=== PATIENT | female | born 1965 | race Caucasian/White ===

== ENCOUNTER → 2017-11-21 08:02 | Outpatient (CLI) | payer OTHER, SELFPAY ==
--- NOTE | 2017-11-21 08:03 | US_ITS ---
STUDY: ULTRASOUND OF THE FEMALE PELVIS - COMPLETE REASON FOR EXAM: Female, 51 years old. Right-sided pelvic pain. Now resolved. LMP: Status post hysterectomy. TECHNIQUE: Transabdominal. TECHNICAL QUALITY: Adequate. COMPARISON: None. FINDINGS: Postsurgical absence of the uterus The right ovary is visualized. The right ovary measures 2.1 x 1.8 x 1.5 cm. There is no right ovarian cyst or ovarian mass. There is no visualized right adnexal mass or complex lesion. There is normal arterial and normal venous vascularity. The left ovary is visualized. The left ovary measures 1.7 x 1.9 x 1.0 cm. Small follicular cyst. There is no visualized left adnexal mass or complex lesion. There is normal arterial and normal venous vascularity. There is no fluid in the cul-de-sac. The pre void volume of the bladder was 300 ml. US/Pelvic (Non ) IMPRESSION: 1. Normal ultrasound of both ovaries. 2. Postsurgical absence of the uterus. 3. Negative for free fluid in the cul-de-sac. Electronically Signed: Maco Torres MD at 8:39 EDT , Service support ,
== END ==
PROVIDERS: Family Provider Internal Medicine; PCP Internal Medicine; Visit Provider Nurse Practitioner Women's Health
DX: R10.2 Pelvic and perineal pain (principal)
CPT/HCPCS: 76856; 93976

== ENCOUNTER → 2017-11-24 16:01 | Outpatient (CLI) | payer OTHER, SELFPAY ==
--- NOTE | 2017-11-24 16:02 | BI_ITS ---
MAMMOGRAPHY - BILATERAL SCREENING REASON FOR EXAM: Female, 51 years old. Routine annual screening examination. PERTINENT HISTORY: Aunt with breast cancer. TECHNIQUE: Digital bilateral breast natalio (3D mammographic acquisition) in the CC and MLO projections. 2-D mediolateral oblique (MLO) and craniocaudad (CC) views of both breasts were obtained. CAD: Full Field Digital Mammography with Computer Added Detection was performed. COMPARISON: Comparison is made with prior study dated April 29, 2016 and September 12, 2014. FINDINGS: Breast Composition: The breasts are heterogeneously dense, which may obscure small masses. There are no dominant masses or suspicious calcifications. No other significant abnormalities are identified. There has been no significant change since the prior study. BI/SCREENING MAMM (CAD), BILAT IMPRESSION: Stable bilateral screening mammogram. Yearly follow-up mammogram recommended. (A) ASSESSMENT CATEGORY: BIRADS Category 1: Negative. A letter regarding these results will be sent to the patient by the facility within 30 days. Approximately 10% of breast cancers are not detected by mammography. A normal mammogram should not delay biopsy of a clinically suspicious abnormality. [id number] Electronically Signed: Filipe Kelly MD at 8:50 EDT Tel [phone], Service support ,
== END ==
PROVIDERS: Family Provider Internal Medicine; PCP Internal Medicine; Visit Provider Nurse Practitioner Women's Health
DX: Z12.31 Encounter for screening mammogram for malignant neoplasm of breast (principal)
CPT/HCPCS: 77063; 77067

== ENCOUNTER 2018-01-25 07:12 | Day surgery (SDC) | payer OTHER, SELFPAY ==
[2018-01-25 07:33] VITALS: BP 110/47; PULSE 55; RESP 16; TEMP 36.8; O2SAT 99; BMI 21.7
[2018-01-25 08:56] VITALS: BP 106/53; BP 110/47; PULSE 58; RESP 16; TEMP 36.8; O2SAT 10
[2018-01-25 09:00] VITALS: BP 100/59; BP 110/47; PULSE 47; RESP 14; O2SAT 100
--- NOTE | 2018-01-25 09:04 | OP.PCM_ITS ---
Report of Operation Date of Procedure: 01/25/18 Pre-Operative Diagnosis: Screening for colon cancer Post-Operative Diagnosis: Internal hemorrhoids?grade 1 Surgery/Procedure Performed:: Colonoscopy Type of Anesthesia:: MAC Anesthesiologist: Ying Fernandez Specimen's removed: None Estimated Blood Loss (mL): None Description of Procedure: Procedure: Colonoscopy After reviewing the risks benefits, the patient was deemed in satisfactory condition to undergo procedure. After obtaining informed consent, the scope was passed under direct visualization. Throughout the procedure, the patient's blood pressure pulse and position saturations were monitored continuously anesthesia. The colonoscope was introduced through the anus and advanced to the cecum, identified by the appendiceal orifice, IC valve and transillumination. The colonoscopy was performed without difficulty. The patient tolerated procedure well. Quality of bowel prep was good. Findings: The perianal and digital rectal exam were normal. The colon (entire examined portion) appeared normal. Retroflexed view of the distal rectum and anal verge was normal and showed no anal or rectal abnormalities Impression: 1. The entire colon is normal. 2. The distal rectal and anal verge were normal on retroflexed view. Recommendations: Repeat colonoscopy in 10 years for screening purposes - Complications None
[2018-01-25 09:05] VITALS: BP 109/64; BP 110/47; PULSE 54; RESP 14; O2SAT 100
[2018-01-25 09:13] VITALS: BP 110/47; BP 112/68; PULSE 54; RESP 14; TEMP 36.6; O2SAT 100
[2018-01-25 09:30] VITALS: BP 110/47
== END 2018-01-25 09:35 | disposition home or self-care (01) ==
LOC: EN 07:13 → AC 07:20
PROVIDERS: Family Provider Internal Medicine; PCP Internal Medicine; Visit Provider Surgery
PROC: 0DJD8ZZ Inspection of Lower Intestinal Tract, Via Natural or Artificial Opening Endoscopic (ICD-10-PCS; CPT 45378; principal; 2018-01-25 08:25)
DX: Z12.11 Encounter for screening for malignant neoplasm of colon (principal); K64.8 Other hemorrhoids; F41.9 Anxiety disorder, unspecified
CPT/HCPCS: 45378; J7120

== ENCOUNTER → 2018-06-07 14:18 | Outpatient (CLI) | payer OTHER, SELFPAY ==
--- NOTE | 2018-06-07 14:20 | RAD_ITS ---
STUDY: X-RAY CHEST REASON FOR EXAM: Female, 52 years old. Chest pain for 2 days, cough TECHNIQUE: PA and lateral views of the chest. COMPARISON: 05/25/2017 FINDINGS: The lungs are clear and expanded. There is no demonstrated pleural abnormality. Normal size heart. Normal mediastinum and geno. Normal visualized pulmonary arteries. Normal visualized aortic arch and descending thoracic aorta. Normal visualized thoracic spine. Normal visualized ribs, clavicles, and shoulders. There is no demonstrated abnormality of the visualized soft tissue structures of the upper abdomen. RAD/Chest PA and Lateral IMPRESSION: Normal x-ray examination of the chest. Electronically Signed: Yevgeniy Castaneda MD at 8:48 EST , Service support ,
== END ==
PROVIDERS: Family Provider Internal Medicine; PCP Internal Medicine; Referring Provider Internal Medicine; Visit Provider Internal Medicine
DX: R07.9 Chest pain, unspecified (principal)
CPT/HCPCS: 71046

== ENCOUNTER → 2018-11-27 07:40 | Outpatient (CLI) | payer OTHER, SELFPAY ==
[2018-08-23 13:15] VITALS: BMI 23.2
[2018-11-01 10:42] VITALS: BMI 23.2
--- NOTE | 2018-11-27 07:41 | BI_ITS ---
MAMMOGRAPHY - BILATERAL SCREENING REASON FOR EXAM: Female, 52 years old. Routine annual screening examination. PERTINENT HISTORY: Aunt with breast cancer. TECHNIQUE: Digital bilateral breast monique (3D mammographic acquisition) in the CC and MLO projections. 2-D mediolateral oblique (MLO) and craniocaudad (CC) views of both breasts were obtained. CAD: Full Field Digital Mammography with Computer Added Detection was performed. COMPARISON: Comparison is made with prior study dated November 24, 2017 and April 29, 2016. FINDINGS: Breast Composition: The breasts are heterogeneously dense, which may obscure small masses. There are no dominant masses or suspicious calcifications. Stable benign-appearing bilateral axillary lymph nodes. No other significant abnormalities are identified. There has been no significant change since the prior study. BI/SCREEN MAMM (CAD) W/MONIQUE BILAT IMPRESSION: Stable bilateral screening mammogram. Yearly follow-up mammogram recommended. (A) ASSESSMENT CATEGORY: BIRADS Category 2: Benign. A letter regarding these results will be sent to the patient by the facility within 30 days. Approximately 10% of breast cancers are not detected by mammography. A normal mammogram should not delay biopsy of a clinically suspicious abnormality. [id number] Electronically Signed: Filipe Kelly, at 8:39 EDT , Service support ,
== END ==
PROVIDERS: Family Provider Internal Medicine; PCP Internal Medicine; Referring Provider Nurse Practitioner Women's Health; Visit Provider Nurse Practitioner Women's Health
DX: Z12.31 Encounter for screening mammogram for malignant neoplasm of breast (principal)
CPT/HCPCS: 77063; 77067

== ENCOUNTER → 2019-11-30 07:39 | Outpatient (CLI) | payer OTHER, SELFPAY ==
[2019-08-27 08:10] VITALS: BMI 23.2
--- NOTE | 2019-11-30 07:40 | BI_ITS ---
MAMMOGRAPHY - BILATERAL SCREENING REASON FOR EXAM: Female, 53 years old. Routine annual screening examination. PERTINENT HISTORY: Aunt with breast cancer. TECHNIQUE: Digital bilateral breast monique (3D mammographic acquisition) in the CC and MLO projections. 2-D mediolateral oblique (MLO) and craniocaudad (CC) views of both breasts were obtained. CAD: Full Field Digital Mammography with Computer Added Detection was performed. COMPARISON: Comparison is made with prior study dated November 27, 2018 and November 25, 2007 FINDINGS: Breast Composition: The breasts are heterogeneously dense, which may obscure small masses. There are no dominant masses or suspicious calcifications. Stable small benign-appearing bilateral axillary lymph nodes. No other significant abnormalities are identified. There has been no significant change since the prior study. BI/SCREEN MAMM (CAD) W/MONIQUE BILAT IMPRESSION: Stable bilateral screening mammogram. Yearly follow-up mammogram recommended. (A) ASSESSMENT CATEGORY: BIRADS Category 2: Benign. A letter regarding these results will be sent to the patient by the facility within 30 days. Approximately 10% of breast cancers are not detected by mammography. A normal mammogram should not delay biopsy of a clinically suspicious abnormality. [id number] Electronically Signed: Filipe Kelly, at 9:52 EDT , Service support ,
== END ==
PROVIDERS: PCP Internal Medicine; Referring Provider Nurse Practitioner Women's Health; Visit Provider Nurse Practitioner Women's Health
DX: Z12.31 Encounter for screening mammogram for malignant neoplasm of breast (principal); Z80.3 Family history of malignant neoplasm of breast
CPT/HCPCS: 77063; 77067

== ENCOUNTER → 2020-11-20 | Outpatient (CLI) | payer OTHER, SELFPAY ==
[2020-11-20 08:06] VITALS: BMI 22.8
== END | disposition home or self-care (01) ==
LOC: LABSPEC 13:46
PROVIDERS: PCP Internal Medicine; Referring Provider Nurse Practitioner Women's Health; Visit Provider Nurse Practitioner Women's Health
DX: N95.2 Postmenopausal atrophic vaginitis (principal)
CPT/HCPCS: 87070; 87077; 87205

== ENCOUNTER → 2020-12-03 06:55 | Outpatient (CLI) | payer OTHER, SELFPAY ==
[2020-11-20 08:06] VITALS: BMI 22.8
--- NOTE | 2020-12-03 06:57 | BI_ITS ---
MAMMOGRAPHY - BILATERAL SCREENING 3-D TOMOSYNTHESIS REASON FOR EXAM: Female, 54 years old. Routine screening PERTINENT HISTORY: Aunt with breast cancer.. TECHNIQUE: 2-D mammograms and 3-D Tomosynthesis of the breast (s) were performed. CAD was performed. COMPARISON: 11/30/2019 FINDINGS: The breast composition is heterogeneously dense that can obscure small breast masses. Scattered benign calcifications are seen. No dense spiculated masses or suspicious microcalcifications are identified. No architectural distortion is identified. There is no skin thickening or retraction. There has been no significant change since the prior study. BI/SCRN MAMM (CAD)W/MONIQEU BILAT IMPRESSION: No mammographic signs of malignancy. Routine yearly mammograms recommended. ASSESSMENT CATEGORY: BIRADS Category 2: Benign. A letter regarding these results will be sent to the patient by the facility within 30 days. FOLLOW UP RECOMMENDATION: Yearly follow up mammogram recommended. (A) Approximately 10% of breast cancers are not detected by mammography. A normal mammogram should not delay biopsy of a clinically suspicious abnormality. Electronically Signed: Yared Phillips MD at 7:57 EDT , Service support ,
== END ==
PROVIDERS: PCP Internal Medicine; Referring Provider Nurse Practitioner Women's Health; Visit Provider Nurse Practitioner Women's Health
DX: Z12.31 Encounter for screening mammogram for malignant neoplasm of breast (principal); Z80.3 Family history of malignant neoplasm of breast
CPT/HCPCS: 77063; 77067

== ENCOUNTER → 2021-01-05 14:52 | Outpatient (CLI) | payer OTHER, SELFPAY ==
[2021-01-05 13:58] VITALS: BMI 22.8
== END ==
PROVIDERS: PCP Internal Medicine; Visit Provider Physician Assistant
DX: J06.9 Acute upper respiratory infection, unspecified (principal); R19.7 Diarrhea, unspecified; R11.10 Vomiting, unspecified
CPT/HCPCS: 87635; U0005; U0003

== ENCOUNTER → 2021-05-06 09:56 | Outpatient (CLI) | payer OTHER, SELFPAY | PROVIDERS: PCP Internal Medicine; Visit Provider Thoracic Surgery (Cardiothoracic Vascular Surgery) | DX: Z79.890 Hormone replacement therapy (principal) ==

== ENCOUNTER → 2021-05-07 08:08 | Outpatient (CLI) | payer OTHER, SELFPAY ==
[2021-05-07 09:31] LABS: Estradiol 34.6 pg/mL; Follicle Stimulating Hormone 83.2 mIU/mL
== END ==
PROVIDERS: PCP Internal Medicine; Referring Provider Thoracic Surgery (Cardiothoracic Vascular Surgery); Visit Provider Thoracic Surgery (Cardiothoracic Vascular Surgery)
DX: Z79.890 Hormone replacement therapy (principal)
CPT/HCPCS: 36415; 82670; 83001; 84403

== ENCOUNTER → 2021-11-12 | Outpatient (CLI) | payer OTHER, SELFPAY ==
--- NOTE | 2021-11-12 17:14 | RAD_ITS ---
STUDY: X-RAY CHEST REASON FOR EXAM: Female, 55 years old. cough TECHNIQUE: PA and lateral views of the chest. COMPARISON: 06/07/2018 FINDINGS: The lungs are clear and expanded. There is no demonstrated pleural abnormality. Normal size heart. Normal mediastinum and geno. Normal visualized pulmonary arteries. Normal visualized aortic arch and descending thoracic aorta. Normal visualized thoracic spine. Normal visualized ribs, clavicles, and shoulders. There is no demonstrated abnormality of the visualized soft tissue structures of the upper abdomen. RAD/Chest PA and Lateral IMPRESSION: Normal x-ray examination of the chest. Electronically Signed: Gee Saucedo MD at 17:29 EDT ,
== END | disposition home or self-care (01) ==
PROVIDERS: PCP Internal Medicine; Referring Provider Physician Assistant; Visit Provider Physician Assistant
DX: R05.9 Cough, unspecified (principal)
CPT/HCPCS: 71046

== ENCOUNTER → 2022-03-12 | Outpatient (CLI) | payer OTHER, SELFPAY ==
--- NOTE | 2022-03-12 07:10 | BI_ITS ---
MAMMOGRAPHY - BILATERAL SCREENING REASON FOR EXAM: Female, 56 years old. Routine annual screening examination. PERTINENT HISTORY: Aunt with breast cancer. TECHNIQUE: Digital bilateral breast monique (3D mammographic acquisition) in the CC and MLO projections. 2-D mediolateral oblique (MLO) and craniocaudad (CC) views of both breasts were obtained. CAD: Full Field Digital Mammography with Computer Added Detection was performed. COMPARISON: Comparison is made with prior study 12/03/2020 and 11/30/2019. FINDINGS: Breast Composition: The breasts are heterogeneously dense, which may obscure small masses. There are no dominant masses or suspicious calcifications. No other significant abnormalities are identified. There has been no significant change since the prior study. BI/SCRN MAMM (CAD)W/MONIQUE BILAT IMPRESSION: Stable bilateral screening mammogram. Yearly follow-up mammogram recommended. (A) ASSESSMENT CATEGORY: BIRADS Category 1: Negative. A letter regarding these results will be sent to the patient by the facility within 30 days. Approximately 10% of breast cancers are not detected by mammography. A normal mammogram should not delay biopsy of a clinically suspicious abnormality. [id number] Electronically Signed: Filipe Kelly MD at 8:45 EDT ,
== END | disposition home or self-care (01) ==
LOC: OPBI 07:08
PROVIDERS: PCP Internal Medicine; Visit Provider Nurse Practitioner Family
DX: Z12.31 Encounter for screening mammogram for malignant neoplasm of breast (principal); Z80.3 Family history of malignant neoplasm of breast
CPT/HCPCS: 77063; 77067

== ENCOUNTER → 2022-10-15 | Outpatient (CLI) | payer OTHER, SELFPAY ==
--- NOTE | 2022-10-15 07:26 | ECHOD_ITS ---
Reason For Study: Chest pain Procedure This was a 2D Doppler, Color Flow transthoracic echocardiogram. Exam performed in department. Left Ventricle Normal LV size. Left ventricular systolic function is normal. The estimated ejection fraction is 68 %. Normal diastology for age. No regional wall motion abnormalities noted. Right Ventricle Normal RV size. Normal systolic function. Atria Normal left atrium. Normal right atrium. Mitral Valve Normal mitral valve. Mild (1+) mitral valve insufficiency. Tricuspid Valve Normal tricuspid valve. Mild tricuspid valve insufficiency. Pulmonary artery systolic pressure is 20 mmHg. Aortic Valve Trisinus/trileaflet aortic valve. Trivial aortic valve insufficiency. Pulmonic Valve Normal pulmonic valve. Trivial pulmonic valve insufficiency. Great Vessels Normal aortic root. The pulmonary artery is normal size. Normal inferior vena cava. Pericardium/Pleural No pericardial effusion. MMode/2D Measurements & Calculations LVIDd: 4.3 cm IVSd: 0.79 cm Ao root diam: 2.9 cm LVIDs: 2.8 cm LVPWd: 0.83 cm RVDd: 2.7 cm FS: 35.3 % LAV(MOD-bp): 26.8 ml LVAd ap4: 23.4 cm2 LVAd ap2: 22.9 cm2 LAV(MOD-bp) Indexed: 17.0 ml/m2 LVLd ap4: 7.4 cm LVLd ap2: 7.5 cm LAV(MOD-sp2): 24.1 ml EDV(MOD-sp4): 61.0 ml EDV(MOD-sp2): 60.4 ml LAV(MOD-sp4): 27.1 ml EDV(sp4-el): 62.5 ml EDV(sp2-el): 59.3 ml LVAs ap4: 12.0 cm2 LVAs ap2: 12.1 cm2 LVLs ap4: 6.1 cm LVLs ap2: 6.5 cm ESV(MOD-sp4): 19.8 ml ESV(MOD-sp2): 19.7 ml ESV(sp4-el): 20.0 ml ESV(sp2-el): 19.3 ml EF(MOD-sp4): 67.5 % EF(MOD-sp2): 67.3 % EF(sp4-el): 67.9 % SV(MOD-sp4): 41.2 ml SV(MOD-sp2): 40.6 ml SV(sp4-el): 42.5 ml LA dimension(2D): 2.9 cm LA A4 area: 12.8 cm2 RA A4 area: 10.4 cm2 Time Measurements MV dec time: 0.17 sec Doppler Measurements & Calculations MV E max colton: 86.9 cm/sec Lat Peak E' Colton: 13.1 cm/sec Med Peak E' Colton: 13.2 cm/sec MV A max colton: 65.3 cm/sec E/E' lat: 6.6 E/E' med: 6.6 MV E/A: 1.3 MV dec slope: 505.1 cm/sec2 Ao V2 max: 138.2 cm/sec LV V1 max: 125.5 cm/sec Ao max P.6 mmHg LV V1 max P.3 mmHg Ao V2 mean: 95.4 cm/sec LV V1 mean P.3 mmHg Ao mean P.2 mmHg LV V1 mean: 84.4 cm/sec Ao V2 VTI: 33.1 cm LV V1 VTI: 28.9 cm AV (velocity ratio): 0.87 PA V2 max: 92.3 cm/sec TR max colton: 207.2 cm/sec TR max P.2 mmHg ECHO/Echo Complete Interpretation Summary Normal LV size. Left ventricular systolic function is normal. The estimated ejection fraction is 68 %. Normal diastology for age. Mild (1+) mitral valve insufficiency. Trivial aortic valve insufficiency. Mild tricuspid valve insufficiency. Ordering Physician: Genaro Dorman Referring Physician: Stefan Knight Performed By: Addis Adan RDCS
--- NOTE | 2022-10-15 07:51 | CT_ITS ---
STUDY: CARDIAC CALCIUM SCORING - CT CHEST REASON FOR EXAM: Female, 56 years old. CHEST PAIN RADIATION DOSAGE (If Supplied By Facility): CTDIvol = ( 12.19 ) mGy, DLP = ( 195.04 ) mGycm TECHNIQUE: Axial non-enhanced images were acquired through the heart for the sole purpose of measuring coronary artery calcium. Individualized dose optimization techniques were used for this CT. COMPARISON: None. FINDINGS: Visualized surrounding anatomy: Normal. Left Main Coronary Artery: 0 Left Anterior Descending Artery: 0 Left Circumflex Artery: 0 Right Coronary Artery: 0 Other: Mild aortic calcification Total Calcium Score: 0 CT/Limited Chest CT Cardiac Only IMPRESSION: A Calcium Score of 0 places the patient in the approximate percentile, based on the [facility] data calculator. Please go to: [email or web address] , for a description of the calculator. Electronically Signed: Burton Rose MD at 18:02 EDT ,
--- NOTE | 2022-10-15 10:32 | CA.SCORE ---
Calcium Scoring Date of Study:: 10/15/22 Coronary Calcium Scoring: High-resolution Computed Tomographic imaging of the chest was performed on [10/15/2022], with particular attention paid to the coronary arteries. Images from the examination were analyzed for the presence and extent of coronary artery calcification , using coronary calcium quantification software. The patient tolerated the procedure well and there were no complications. The results of the coronary calcification analysis are provided below. Findings Coronary Artery Left Main (LM): 0 Left Anterior Descending (LAD): 0 Left Circumflex (LCX): 0 Right Coronary Artery (RCA): 0 Total Agatston Score: 0 Percentile Rankin Calcium Scoring Interpretation: Different methods to categorize the overall amount of coronary plaque. Overall amount CAC SIS Visual of coronary plaque P1 Mild -100 <2 1-2 vessels with mild amount of plaque P2 Moderate 101-300 3-4 1-2 vessels with moderate amount, 3 vessels with mild amount of plaque P3 Severe 301-999 5-7 3 vessels with moderate amount, 1 vessel with severe amount of plaque P4 Extensive >1000 >8 2-3 vessels with severe amount of plaque Conclusion: No atherosclerotic plaquing noted.
--- NOTE | 2022-10-15 12:19 | STRESSREP ---
Stress Test Report Exercise stress test. 56-year-old lady with a history of chest pain Stress protocol: Resting EKG demonstrates sinus bradycardia with a rate of 58 bpm resting blood pressure is 118/72 mmHg. The patient exercised according to the regular [facility] protocol for a total duration of 9 minutes and 30 seconds attaining a maximum heart rate of 146 bpm which was 87% of maximum predicted heart rate; the maximum workload was 11.7 metabolic equivalents. At rest there were no ST or T wave changes noted to suggest ischemia and at peak exercise upsloping ST changes only were noted which did not meet the criteria for ischemia. No clinical angina was noted the test was terminated due to the target heart rate being achieved/fatigue. The peak blood pressure was 140/70 mmHg. Rate-pressure product was 18,700. Conclusion: Normal exercise stress test with no evidence of ischemia at a high workload. Excellent functional capacity.
== END | disposition home or self-care (01) ==
PROVIDERS: PCP Internal Medicine; Visit Provider Internal Medicine Cardiovascular Disease
DX: R07.9 Chest pain, unspecified (principal); I34.0 Nonrheumatic mitral (valve) insufficiency
CPT/HCPCS: 75571; 76380; 93017; 93306

== ENCOUNTER → 2022-12-15 | Outpatient (CLI) | payer OTHER, SELFPAY ==
--- NOTE | 2022-12-15 16:14 | MRI_ITS ---
EXAM: MR HEAD WITHOUT AND WITH INTRAVENOUS CONTRAST CLINICAL INDICATION: migraine headaches,dizziness TECHNIQUE: Multiplanar and multisequence MR images of the brain were obtained without and with intravenous contrast. Magnetic field strength 1.5 T. CONTRAST: 12 cc of Clariscan IV. COMPARISON: No relevant prior studies available. FINDINGS: BRAIN AND EXTRA-AXIAL SPACES: Unremarkable. No intra- or extra-axial hemorrhage. No evidence of acute infarct. No intracranial mass or mass effect. There is preservation of the joe/white matter interface. Posterior fossa structures are unremarkable. Ventricles are appropriate for age. No hydrocephalus. Basal cisterns are patent. SELLA: Unremarkable. Normal sella turcica, pituitary gland, infundibular stalk, optic chiasm and hypothalamus. AUDITORY SYSTEM: Unremarkable. The internal auditory canals are patent. BONES/JOINTS: Unremarkable. No discrete lytic or blastic abnormalities. SINUSES: Unremarkable as visualized. Clear. MASTOID AIR CELLS: Unremarkable as visualized. Clear. ORBITS: Unremarkable as visualized. Both globes, extraocular muscles, optic nerves and retrobulbar fat appear unremarkable. VASCULATURE: Unremarkable as visualized. Normal flow voids in the major intracranial circulation. MRI/Brain W/WO Contrast IMPRESSION: Negative MRI brain without and with intravenous contrast. Pending Final Proof Editing
== END | disposition home or self-care (01) ==
LOC: MRI 16:14
PROVIDERS: PCP Internal Medicine; Referring Provider Psychiatry & Neurology Neurology; Visit Provider Psychiatry & Neurology Neurology
DX: G43.009 Migraine without aura, not intractable, without status migrainosus (principal)
CPT/HCPCS: 70553; A9575

== ENCOUNTER → 2022-12-22 | Outpatient (CLI) | payer OTHER, SELFPAY ==
--- NOTE | 2022-12-22 09:00 | RAD_ITS ---
INDICATION: Chronic neck pain, numbness and tingling down right arm into hand. EXAMINATION/TECHNIQUE: X-RAY - XR Spine Cervical 2 or 3 Views: AP, lateral and open-mouth odontoid views COMPARISON: None. FINDINGS: VERTEBRAE: Preserved vertebral body heights. No fracture or suspicious osseous lesion demonstrated. No spondylolisthesis. Straightening of cervical lordosis. Multilevel small endplate osteophytes. DISCS: Disc spaces are maintained. NECK SOFT TISSUES: No prevertebral soft tissue widening. LUNG APICES: Clear. RAD/Cerv Spine 2 or 3 Views IMPRESSION: Multilevel mild cervical spondylosis with straightening of cervical lordosis. Electronically Signed: Brendon Jean-Baptiste MD at 3:24 EDT ,
[2022-12-22 09:58] LABS: Hematocrit 38.2 % (37-47); Hemoglobin 12.6 g/dL (12.0-15.0); Mean Corpuscular Volume 93.9 fL (81-99); Mean Platelet Vol. 10.9 fl (6.2-12.0); Platelet Count 277 K/mm3 (150-450); RBC Distribution Width CV 12.1 % (11.6-14.6); RBC Distribution Width SD 42.1 fl (35.1-43.9); Red Blood Count 4.07 M/mm3 (4.2-5.4); White Blood Count 6.1 K/mm3 (4.4-11.0)
[2022-12-22 10:57] LABS: Vitamin B12 411 pg/mL (211-911)
[2022-12-22 11:20] LABS: ALB/GLOB Ratio 1.1 RATIO (0.9-2.4); AST(SGOT) 29 U/L (15-37); Alanine Aminotransfer ALT/SGPT 24 U/L (13-56); Albumin, Serum 4.1 g/dL (3.2-5.0); Alkaline Phosphatase 64 U/L (45-117); Anion Gap 5 (5-15); BUN 11 mg/dL (7-18); BUN/Creat Ratio 16.1 RATIO (10-20); Chloride 106 mmol/L (98-107); Creatinine, Serum 0.68 mg/dL (0.55-1.02); EST Glomerular Filtration Rate 95 mL/min (>60); Est Glom Filt Rate - Afr Amer 115 mL/min (>60); Ferritin 108 ng/mL (8-252); Globulin 3.6 g/dL (2.2-4.2); Glucose 77 mg/dL (74-106); Iron 62 ug/dL (50-170); Potassium 4.6 mmol/L (3.5-5.1); Protein, Total 7.7 g/dL (6.4-8.2); Sodium Level 137 mmol/L (136-145); Thyroid Stim Hormone (TSH) 0.92 uIU/mL (0.358-3.74)
== END | disposition home or self-care (01) ==
LOC: LAB 08:47
PROVIDERS: PCP Internal Medicine; Referring Provider Psychiatry & Neurology Neurology; Visit Provider Psychiatry & Neurology Neurology
DX: M54.2 Cervicalgia (principal); D64.9 Anemia, unspecified; R53.83 Other fatigue; Z86.2 Personal history of diseases of the blood and blood-forming organs and certain disorders involving the immune mechanism
CPT/HCPCS: 36415; 72040; 80053; 82607; 82728; 82746; 83540; 84443; 85027

== ENCOUNTER → 2023-06-03 | Outpatient (CLI) | payer OTHER, SELFPAY ==
--- NOTE | 2023-06-03 06:49 | BI_ITS ---
MAMMOGRAPHY - BILATERAL SCREENING REASON FOR EXAM: Female, 57 years old. Routine annual screening examination. PERTINENT HISTORY: Aunt with breast cancer. TECHNIQUE: Digital bilateral breast monique (3D mammographic acquisition) in the CC and MLO projections. 2-D mediolateral oblique (MLO) and craniocaudad (CC) views of both breasts were obtained. CAD: Full Field Digital Mammography with Computer Added Detection was performed. COMPARISON: Comparison is made with prior study dated March 12, 2022 and December 03, 2020. FINDINGS: Breast Composition: The breasts are heterogeneously dense, which may obscure small masses. There are no dominant masses or suspicious calcifications. Stable benign-appearing bilateral axillary lymph nodes. No other significant abnormalities are identified. There has been no significant change since the prior study. BI/SCRN MAMM (CAD)W/MONIQUE BILAT IMPRESSION: Stable bilateral screening mammogram. Yearly follow-up mammogram recommended. (A) ASSESSMENT CATEGORY: BIRADS Category 2: Benign. A letter regarding these results will be sent to the patient by the facility within 30 days. Approximately 10% of breast cancers are not detected by mammography. A normal mammogram should not delay biopsy of a clinically suspicious abnormality. [id number] Electronically Signed: Filipe Kelly MD at 8:45 EST ,
== END | disposition home or self-care (01) ==
LOC: OPBI 07:04
PROVIDERS: PCP Internal Medicine; Referring Provider Internal Medicine; Visit Provider Internal Medicine
DX: Z12.31 Encounter for screening mammogram for malignant neoplasm of breast (principal)
CPT/HCPCS: 77063; 77067

== ENCOUNTER 2023-11-05 15:05 | Emergency (ER) | payer OTHER, SELFPAY ==
[2023-11-05] VITALS (8 sets, daily range): BP systolic 105–136; BP diastolic 56–103; PULSE 63–85; RESP 16–34; TEMP 36.1–36.6; O2SAT 16–99
--- NOTE | 2023-11-05 15:14 | EX.ED.UPPERE ---
HPI <HENNY Yoo - Last Filed: 11/05/23 17:43> History of Present Illness Chief Complaint: Upper Extremity Injury Narrative Narrative: 57-year-old female was rollerskating and fell backwards and caught herself with her right hand which caused right wrist pain and swelling. She is right-hand dominant. She has no weakness or numbness or tingling. PFSH <HENNY Yoo - Last Filed: 11/05/23 17:43> [facility] Medical History Acute bronchitis, unspecified Acute sinusitis, unspecified Allergies Anxiety Elective procedure for unacceptable cosmetic appearance Excess skin of neck Facial aging Facial rhytids Fatigue Health care maintenance Hypersomnia Influenza A Low back pain Malaise Migraine Osteoarthritis Platysmal band of neck Scoliosis of lumbar spine Screening for cardiovascular condition Segmental and somatic dysfunction of cervical region Segmental and somatic dysfunction of thoracic region Skin laxity Home Medications Lactobacillus acidophilus (Acidophilus chewable tablet) 1 tab PO DAILY 07/01/17 [History Last Taken Unknown] ondansetron HCl 4 mg tablet See Rx Instructions .Route .COMPLEX #30 tabs 12/01/22 [Rx Last Taken Unknown] Right wrist splint for carpal tunnel syndrome #1 ea 12/02/22 [Rx Last Taken Unknown] fluoxetine 20 mg tablet 40 mg (2 x 20 mg) PO DAILY #180 tabs 04/29/23 [Rx Last Taken Unknown] baclofen 10 mg tablet 10 mg PO TID PRN muscle pain/muscle spasm #90 tabs 07/19/23 [Rx Last Taken Unknown] meloxicam 15 mg tablet 15 mg PO DAILY PRN pain #90 tabs 07/19/23 [Rx Last Taken Unknown] onabotulinumtoxinA 100 unit solution for injection (Botox) 200 unit IM ONCE #2 ea 07/19/23 [Rx Last Taken Unknown] sumatriptan succinate 100 mg tablet See Rx Instructions PO .COMPLEX #12 tabs 07/19/23 [Rx Last Taken Unknown] oxycodone-acetaminophen 5 mg-325 mg tablet (Percocet) 1 tab PO Q6H PRN pain 3 days #12 tabs 11/05/23 [Rx Last Taken Unknown] Allergy/AdvReac Type Severity Reaction Status Date / Time Sulfa (Sulfonamide Allergy Unknown Rash Verified 11/05/23 15:06 Antibiotics) Family History Mother Arthritis Heart disease Grandmother Diabetes Father Heart disease Other Anxiety Depression Hypertension Surgical History History of hand surgery History of hysterectomy History of laparoscopy Social History Smoking Status: Never smoker alcohol intake: current alcohol intake frequency: holidays/special occasions only substance use type: does not use caffeine: Yes what type of physical activity do you participate in: running frequency: 5-6 times per week seatbelt use: always do you feel safe at home: Yes additional social history: [employer] Patient works at [employer] Does Not Take Aspirin Does Not Take Ibuprofen ROS <HENNY Yoo - Last Filed: 11/05/23 17:43> ROS ED ROS Narrative Neuro: Negative for motor/sensory dysfunction. Skin: Negative for wound. Musc: Positive for right wrist pain, swelling, trauma. EXAM <HENNY Yoo - Last Filed: 11/05/23 17:43> Physical Exam Narrative Exam Narrative: CONST: Patient sitting in no acute distress. EYES: Normal inspection. NECK: Normal inspection. SKIN: Color normal, no rash, warm, dry, intact. EXTREMITIES: Right wrist swelling and deformity with diffuse tenderness, no tenderness of elbow forearm or hand. 2+ radial pulse and brisk cap refill. Normal motor and sensory function in median radial and ulnar distributions. NEURO: Alert and answering questions appropriately. PSYCH: Normal affect. Const Vital Signs: 11/05/23 15:07 Temperature 96.9 F L Temperature Source Temporal Pulse Rate 83 Respiratory Rate 22 H Blood Pressure 114/103 H Blood Pressure Mean 106 Pulse Ox 96 Oxygen Delivery Method Room Air MDM <HENNY Yoo - Last Filed: 11/05/23 17:43> MDM MDM Narrative Medical decision making narrative: Mechanical fall with right wrist injury and deformity. Neurovascularly intact. Wrist range of motion very limited by pain. 2 rings were successfully removed from the right middle and ring fingers. Procedural sedation, Ortho-Glass splint, repeat x-rays show improved alignment. She would like to follow-up with Dr. Rivera and was discharged with splint instructions and analgesia. <Dr. Angelo Bennett, DO - Last Filed: 11/05/23 17:35> [facility] Treatment and Re-Evaluation Narrative: I have personally performed a face to face assessment of the patient and have reviewed the HERNESTO Note. I performed a substantive portion of the visit including all aspects of the following. My marino findings include: History: Patient presents with right wrist injury that occurred today. Patient states she was rollerskating when she felt and landed on her outstretched right wrist. Patient is right-hand dominant. Patient states her pain is worse with any movement. Patient denies any paresthesias or weakness. Patient denies any head injury or loss of consciousness. Patient denies any other injuries. Exam: Vital signs are stable. Patient is afebrile. Patient is in no acute distress. There is tenderness and deformity over the right distal radius. Range of motion was limited in all motions of the right wrist secondary to pain. Sensation was intact to light touch in the radial, median, and ulnar areas. Strength is 5/5 in the radial, median, and ulnar areas. Radial pulses are equal bilateral. Capillary refill was less than 2 seconds in all digits. Medical Decision Making: X-rays of the right wrist will be obtained to assess for fracture or dislocation. Patient was given an injection of morphine. X-rays of the right wrist were obtained. There are 3 views. On my independent interpretation, there is comminuted fracture of the distal radius that extends into the radiocarpal joint and radial ulnar joint. There is displacement of the distal fragment dorsally. There is also an ulnar styloid fracture. Radiologist also interpreted the x-rays and agrees. Patient was placed in finger traps. The rings were removed. Patient was advised of the need for procedural sedation. Patient was given the opportunity ask questions about sedation. She had no further questions. Patient was placed on continuous cardiac and pulse oximeter monitors. Patient was given a total of 100 mg of propofol. The fracture was reduced. A well-padded custom made AP splint was applied while the patient was still in finger traps. Patient tolerated the procedure well. Total sedation time was 17 minutes. There were no hypoxic episodes noted. Repeat x-rays were obtained. There are 3 views. On my independent interpretation, the fracture fragments are better aligned. The distal radius was out to length. There is still some mild dorsal angulation of the distal fragment. Patient was instructed to follow-up with Dr. Rivera per her request. Patient was instructed to return if worse in any way. Patient was given a prescription for a short course of [place]. Patient understood and was agreeable with the plan. All questions were answered. Procedures <Dr. Angelo Bennett, DO - Last Filed: 11/05/23 17:35> Upper Extremity Splints Upper Extremity Splint: Orthoglass and - (AP short arm splint) Splint Fabrication: Fabricated Location: Right Procedural Sedation 1 (Initial Baseline): Consent Signed: Yes Any Problems With Anesthesia: No You/Your family experience fever (hyperthermia) w/anesthesia: No Sedation medication: Propofol Dose: 100 Maliampati Score: Class I ASA Classification: II Discharge Plan Triage Chief Complaint: Upper Extremity Injury ED Midlevel Provider: Harriett Chase ED Provider: Angelo Bennett Dx/Rx/DC Orders Clinical Impression: Closed fracture of distal end of right ulna, Closed fracture of right distal radius Instructions: Distal Radius Fx Prescriptions: New oxycodone-acetaminophen [Percocet] 5-325 mg tablet 1 tab PO Q6H PRN (Reason: pain) 3 Days Qty: 12 0RF No Action Lactobacillus acidophilus chewable tablet tablet,chewable 1 tab PO DAILY ondansetron HCl 4 mg tablet See Rx Instructions .ROUTE .COMPLEX Qty: 30 1RF Dose Instruction: TAKE 1 TABLET BY MOUTH EVERY 8 HOURS NEEDED FOR NAUSEA AND VOMITING Rx Instructions: TAKE 1 TABLET BY MOUTH EVERY 8 HOURS NEEDED FOR NAUSEA AND VOMITING (DME) Right wrist splint for carpal tunnel syndrome See Rx Instructions .Route .MEDSUPPLY Qty: 1 0RF Rx Instructions: As directed fluoxetine 20 mg tablet 40 mg PO DAILY Qty: 180 3RF meloxicam 15 mg tablet 15 mg PO DAILY PRN (Reason: pain) Qty: 90 1RF baclofen 10 mg tablet 10 mg PO TID PRN (Reason: muscle pain/muscle spasm) Qty: 90 5RF sumatriptan succinate 100 mg tablet See Rx Instructions PO .COMPLEX Qty: 12 5RF Rx Instructions: Take 1 tablet PO every 2 hours as needed for headache up to 2 tablets/day Botox 100 unit recon soln 200 unit IM ONCE Qty: 2 0RF Primary Care Provider: Stefan Knight Referrals: Stefan Knight MD [Primary Care Provider] - Gary Rivera DO [Med Staff - Active Staff] - Activity Restrictions/Additional Instructions: You have a right distal radius and distal ulnar fracture. The splint clean and dry and follow-up with orthopedics. Disposition Disposition: Home, Self Care
--- NOTE | 2023-11-05 15:20 | RAD_ITS ---
INDICATION: pain EXAMINATION/TECHNIQUE: X-RAY - RIGHT XR Wrist Min 3 Views 3 VIEWS COMPARISON: No relevant prior comparison study available FINDINGS: SOFT TISSUES: Diffuse soft tissue swelling. No radiopaque foreign body. BONES/JOINTS: Comminuted intra-articular displaced fracture of the distal radius. Fracture of the ulnar styloid. No definite dislocation. The remainder of the joint spaces are within normal limits. No sclerotic or destructive changes observed. RAD/Wrist min 3 Views IMPRESSION: Fractures of the distal radius and ulna. Electronically Signed: Yunior Card MD at 15:45 EDT ,
[2023-11-05] MEDS: Morphine 4 MG/ML Syringe IV (15:28)
[2023-11-05] MEDS: Ondansetron 4 MG/2 ML Vial IV (15:28)
[2023-11-05] MEDS: Morphine 4 MG/ML Syringe 6 MG IV (15:43)
[2023-11-05] MEDS: Propofol 200 MG/20 ML Vial 20 MG IV BOLUS (15:45)
--- NOTE | 2023-11-05 17:07 | RAD_ITS ---
STUDY: XR Wrist Min 3 Views REASON FOR EXAM: Female, 57 years old. reduction TECHNIQUE: XR Wrist Min 3 Views RIGHT COMPARISON: Study done earlier FINDINGS: Ulnar styloid fracture. Comminuted impacted intra-articular fracture of the distal radius. Improvement in the alignment. There are no acute findings of the radiocarpal articulation. Normal distal radioulnar articulation. Normal carpal bones. Normal carpal articulations. There are no acute findings of the carpometacarpal articulation of the thumb. Normal second through fifth carpometacarpal articulations. There are no acute findings of the visualized metacarpal bones. There is non-specific soft tissue swelling. RAD/Wrist min 3 Views IMPRESSION: Ulnar styloid fracture. Comminuted impacted intra-articular fracture of the distal radius. Improvement in the alignment status post reduction Electronically Signed: Dez Muir MD at 17:30 EDT ,
== END 2023-11-05 18:08 | disposition home or self-care (01) ==
PROVIDERS: Emergency Provider Emergency Medicine; PCP Internal Medicine; Visit Provider Emergency Medicine
DX: S52.571A Other intraarticular fracture of lower end of right radius, initial encounter for closed fracture (principal); S52.601A Unspecified fracture of lower end of right ulna, initial encounter for closed fracture; W18.30XA Fall on same level, unspecified, initial encounter; Y93.51 Activity, roller skating (inline) and skateboarding; Z90.710 Acquired absence of both cervix and uterus
CPT/HCPCS: 25605; 73110; 96374; 96375; 96376; 99152; 99284; A4216; J2405

== ENCOUNTER 2024-01-31 07:30 | Outpatient (RCR) | payer OTHER, SELFPAY ==
--- NOTE | 2023-12-29 09:49 | HP.OTEVAL_ITS ---
Patient's Visit Information Visit Information Visit Information: BRITTA VELASQUEZ is a 58 year old F, referred to Occupational Therapy by Dr. Filemon Graff MD, with a diagnosis of Intra-artic fx of distal R radius. Date of Evaluation: 12/29/23 Occupational Therapist: Radha Quiñonez Subjective Subjective: This 58 year old female presents for OT eval following radius and ulnar styloid fx RUE 11/04 with ORIF complete 11/10/23. Pt now presents at 6 weeks post op for OT services to decrease pain increased ROM and strength. pt cast taken off 1 week ago. Pt is R hand dominant. Pt works at [employer]. Pain R wrist: Current Pain Intensity: 3 Objective Objective/Observation: This female arrives with R wrist cock up orthosis donned. pt presents with stiffness of wrist as well as forearm and swelling noted in comparison to non affected side. pt uses R shoulder to compensate for lack of ROM at forearm and reports pain with movement especially into pronation. ROM Shoulder: wfl Elbow: wfl Forearm: wfl Wrist: R 25/20 MP: 0/40 IP: 0/30 Opposition: opposes to D5 MP: D2 0/60 D3 0/75 D4 0/75 D5 0/75 PIP: D2 0/80 D3 0/79 D4 0/90 D5 0/75 ROM Comments: R wrist ulnar dev 15 degrees R wrist radial dev 5 degrees R pronation and supination 35 degrees able to make light composite fist with digits touching surface of palm Strength Leadite Heater: L 42 Lateral Pinch: L 8 Tripod Pinch: L 5 Strength Comments: R UE not assesed at this time due to healing structures to assess when appropriate Edema Other: R wrist 15.5 cm L wrist 14 cm Sensation Sensation Comments: denies numbness or tingling Quick DASH-Disab of Arm,Shoulder& Hand Quick DASH Score: 47.7250 Goals Goal:: 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 equal to or greater than non affected UE (42#) in order to perform household activities as well as job responsibilities pt will improve R lateral pinch strength equal to or greater than non affected UE (8#) in order to perform household activities as well as job related responsibilities pt will improve R tripod pinch strength equal to or greater than non affected UE (5#) in order to perform household activities as well as job related responsi bilities Goal:: pt will improve R wrist ROM extension / flexion to 55/60 in order to complete household tasks as well as job responsibilities pt will improve forearm pronation / supination to 60 / 65 in order to complete typing task household responsibilities pt will improve radial / ulnar deviation to 15 / 20 in order to complete work related tasks as well as IADLs Goal:: pt will report decreased pain R UE during movement to 1/10 or less in order to maximize return to normal function Goal:: pt will decrease R wrist swelling measuring at 15 cm or less R wrist for improved ROM and decreased pain Goal:: pt will verbalize/ demonstrate 100% accuracy in proper joint positioning during all functional tasks by discharge Goal:: pt will improve quick dash score by 15 points or more (47.72) in order to improve overall quality in use of RUE during functional tasks Goal:: pt will report ability to type on keyboard using RUE 5/5 trials with no compensation at shoulder joint by discharge Rehabilitation Rehabilitation Potential: Good Anticipated Interventions Anticipated Interventions: A/AAROM/PROM, Strengthening, Scar Care, Massage, Triggerpoint Release, Modalities, Joint Protection/Energy Conservation, Ergonomic Education, Fine Motor Coord/Farhan, Education re assistive Equipment, Education re Diagnosis and Home Program Visit Plan Frequency: 2x /Week Duration: 6 Weeks General Plan: This 58 year old female presents s/p distal radius as well as ulnar styloid fx with completion of ORIF presenting with stiffness decreased ROM at wrist as well as digits and forearm as well as pain with movement slight swelling. pt would benefit from OT services x2 a week for 30 min 6 weeks in [facility] to re gain ROM provide scar massage and mobilization ed on HEP exercise and progress to strengthening for return to normal use of RUE. TEXT: Thank you for the opportunity to evaluate your patient. For Medicare and Medicare HMO plans, please review the plan of care and approve it. It will need to be FAXED BACK to us at [phone] for Medicare purposes. Please let me know if there are questions or concerns regarding this plan of care. Physician Signature: Date:
--- NOTE | 2024-01-12 16:27 | OTREVAL_ITS ---
Re-Evaluation Intro: Dr. Filemon Graff MD, It has been my pleasure to treat BRITTA VELASQUEZ over the last 5 visits for Intra-artic fx of distal R radius. Please see the progress note below for an update on the occupational therapy plan of care! Subjective Subjective: 9 weeks s/p from ORIF right wrist pt arrives with soft wrist cock up brace on- pt states tender with ROM ex. denies concerns with her HEP. Objective Objective/Function: right wrist 30/30 increased from 25/18 UD 10 decreased by 5* RD 15 increase from 3* right supination 40 following therapy 55* right pronation 30 following 45* pt is able to gain more ROM with supination and pronation without as much pain with elbow flexed for supination ex and elbow in more extension for pronation ex. Pt was just given this ex by this therapist. Plan Plan Frequency: 2x /Week Duration: 6 Weeks Visits in this POC: 40 OT/PT combined per bartolome. 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 equal to or greater than non affected UE (42#) in order to perform household activities as well as job responsibilities pt will improve R lateral pinch strength equal to or greater than non affected UE (8#) in order to perform household activities as well as job related respons ibilities pt will improve R tripod pinch strength equal to or greater than non affected UE (5#) in order to perform household activities as well as job related responsibilities Goal:: pt will improve R wrist ROM extension / flexion to 55/60 in order to complete household tasks as well as job responsibilities pt will improve forearm pronation / supination to 60 / 65 in order to complete typing task household responsibilities pt will improve radial / ulnar deviation to 15 / 20 in order to complete work related tasks as well as IADLs Goal:: pt will report decreased pain R UE during movement to 1/10 or less in order to maximize return to normal function Goal:: pt will decrease R wrist swelling measuring at 15 cm or less R wrist for improved ROM and decreased pain Goal:: pt will verbalize/ demonstrate 100% accuracy in proper joint positioning during all functional tasks by discharge Goal:: pt will improve quick dash score by 15 points or more (47.72) in order to improve overall quality in use of RUE during functional tasks Goal:: pt will report ability to type on keyboard using RUE 5/5 trials with no compensation at shoulder joint by discharge Anticipated Interventions Anticipated Interventions Anticipated Interventions: A/AAROM/PROM, Strengthening, Scar Care, Massage, Triggerpoint Release, Modalities, Joint Protection/Energy Conservation, Ergonomic Education, Fine Motor Coord/Farhan, Education re assistive Equipment, Education re Diagnosis and Home Program Re-Evaluation Ending Re-evaluation ending: Please do not hesitate to contact me at [phone] by phone or if you have questions or concerns regarding this new plan of care! Sincerely, Page Graham, OTR/L, CHT
--- NOTE | 2024-01-31 08:02 | HP.OTDCSUM_ITS ---
Discharge Summary D/C Summary: It has been my pleasure to treat BRITTA VELASQUEZ under orders from Dr. Filemon Graff MD, for the diagnosis of Intra-artic fx of distal R radius for a total of 7 visit(s). Please see the following information for a summary of their discharge status. Overall Improvement % Improvement: 75 Objective Objective/Function: R wrist 50/30 supination 60 pronation 55 vp digital marketing social media and crm 20# lateral 4# tripod 3# Goals Patient Goals: Regain Strength, Decrease Pain, Decrease Swelling/Stiffness, Improve Fine Motor Skills, Use Hand/Wrist/Arm Normally Again, Increase ROM, Resume Former Household Responsibilities (Cooking,Cleaning,Yard, etc.) and Resume Hobbies Goal:: pt will improve R vp digital marketing social media and crm strength equal to or greater than non affected UE (42#) in order to perform household activities as well as job responsibilities -- 01/30 now 20 pounds not met pt will improve R lateral pinch strength equal to or greater than non affected UE (8#) in order to perform household activities as well as job related responsibilities 01/30 4# not met pt will improve R tripod pinch strength equal to or greater than non affected UE (5#) in order to perform household activities as well as job related responsibilities 01/30 3# not met Goal:: pt will improve R wrist ROM extension / flexion to 55/60 in order to comp lete household tasks as well as job responsibilities 01/30 50/30 not met pt will improve forearm pronation / supination to 60 / 65 in order to complete typing task household responsibilities 01/30 supination 60 pronation 55 not met pt will improve radial / ulnar deviation to 15 / 20 in order to complete work related tasks as well as IADLs Goal:: pt will report decreased pain R UE during movement to 1/10 or less in order to maximize return to normal function GOAL met no pain Goal:: pt will decrease R wrist swelling measuring at 15 cm or less R wrist for improved ROM and decreased pain GOAL MET Goal:: pt will verbalize/ demonstrate 100% accuracy in proper joint positioning during all functional tasks by discharge GOAL MET Goal:: pt will improve quick dash score by 15 points or more (47.72) in order to improve overall quality in use of RUE during functional tasks GAOL MET Goal:: pt will report ability to type on keyboard using RUE 5/5 trials with no compensation at shoulder joint by discharge GOAL MET Plan Plan: AROM/AAROM/PROM tendon glide scar massage de sensitization strengthening D/C Information d/c sentence: If there are questions or concerns regarding this patient's occupational therapy, please fell free to call me at [phone]. Thank you for the referral of this patient. Sincerely, Radha Quiñonez
--- NOTE | 2024-01-31 08:02 | HP.OT.NRP ---
Patient Information Patient Information: BRITTA VELASQUEZ was seen in my office for initial evaluation on 12/29/23. The following Plan of Care was established for this patient: POC Established Initial Frequency: 2x /Week Initial Duration: 6 Weeks Plan: AROM/AAROM/PROM tendon glide scar massage de sensitization strengthening Anticipated Interventions Anticipated Interventions: A/AAROM/PROM, Strengthening, Scar Care, Massage, Triggerpoint Release, Modalities, Joint Protection/Energy Conservation, Ergonomic Education, Fine Motor Coord/Farhan, Education re assistive Equipment, Education re Diagnosis and Home Program Last Seen Last Seen: This patient was last seen in our office 01/31/24. Pertinent comments regarding their Occupational therapy will appear below: This 58 year old female seen by OT s/p ORIF of R distal radius. pt seen for ROM training in joint protection and stability. 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 discharge this date pt in agreeance. At this point I will be discontinuing this patient from occupational therapy. I would be happy to see this patient again in the future if found appropriate by the physician. Thank you! Radha Quiñonez
== END 2024-01-31 19:00 | disposition home or self-care (01) ==
LOC: OT 07:30
PROVIDERS: PCP Internal Medicine; Referring Provider Orthopaedic Surgery; Visit Provider Orthopaedic Surgery
DX: S52.571D Other intraarticular fracture of lower end of right radius, subsequent encounter for closed fracture with routine healing (principal)
CPT/HCPCS: 97110; 97140; 97166; 97530

== ENCOUNTER → 2024-06-21 | Outpatient (CLI) | payer OTHER, SELFPAY ==
[2024-06-21 15:24] LABS: Absolute Lymphocyte Count 1.99 X10^3/uL (0.83-4.51); Absolute Neutrophil Count 3.1 X10^3/uL (2.0-7.7); Basophil# 0.11 X10^3/uL; Basophil% 1.9 % (0-1); Eosinophils% 3.4 % (0-5); Hematocrit 39.1 % (37-47); Hemoglobin 12.6 g/dL (12.0-15.0); Lymphocyte # 1.99 X10^3/ul (0.83-4.51); Mean Corp Hgb Conc 32.2 g/dL (32-36); Mean Corpuscular Hgb 29.9 pg (27.0-32.0); Mean Corpuscular Volume 92.9 fL (81-99); Monocyte# 0.48 X10^3/uL; Monocyte% 8.2 % (0-10); NRBC Flagged by Analyzer 0 % (0-5); Neutrophil # 3.06 X10^3/uL (2.7-7.7); Neutrophil % 52.2 % (47-70); Platelet Count 286 K/mm3 (150-450); RBC Distribution Width CV 12.4 % (11.6-14.6); RBC Distribution Width SD 42.6 fl (35.1-43.9); Red Blood Count 4.21 M/mm3 (4.2-5.4); White Blood Count 5.9 K/mm3 (4.4-11.0)
[2024-06-21 15:50] LABS: ALB/GLOB Ratio 1.1 RATIO (0.9-2.4); AST(SGOT) 20 U/L (15-37); Alanine Aminotransfer ALT/SGPT 23 U/L (13-56); Albumin, Serum 4.1 g/dL (3.2-5.0); Alkaline Phosphatase 77 U/L (45-117); Anion Gap 7 (5-15); BUN 13 mg/dL (7-18); BUN/Creat Ratio 18.9 RATIO (10-20); Calcium,Total 9.7 mg/dL (8.5-10.1); Chloride 105 mmol/L (98-107); Cholesterol 245 mg/dL (200); Creatinine, Serum 0.69 mg/dL (0.55-1.02); EST Glomerular Filtration Rate 94 mL/min (>60); Est Glom Filt Rate - Afr Amer 114 mL/min (>60); Globulin 3.7 g/dL (2.2-4.2); Glucose 88 mg/dL (74-106); High Density Lipoprotein 108 mg/dL; Potassium 4.4 mmol/L (3.5-5.1); Protein, Total 7.8 g/dL (6.4-8.2); Sodium Level 138 mmol/L (136-145); Triglycerides 113 mg/dL; Very Low Density Lipoprotein 23 mg/dL (5-40)
== END | disposition home or self-care (01) ==
LOC: BIMLAB 12:15
PROVIDERS: PCP Internal Medicine; Referring Provider Internal Medicine; Visit Provider Internal Medicine
DX: Z00.00 Encounter for general adult medical examination without abnormal findings (principal)
CPT/HCPCS: 36415; 80053; 80061; 85025

== ENCOUNTER → 2024-08-21 | Outpatient (CLI) | payer OTHER, SELFPAY ==
--- NOTE | 2024-08-21 07:33 | BI_ITS ---
PROCEDURE: SCRN MAMM (CAD)W/MONIQUE BILAT REASON FOR EXAM: F, Age 58 y/o, aunt with breast cancer. Routine annual mammographic follow-up. June 03, 2023. TECHNIQUE: Bilateral screening digital breast tomosynthesis with 2D and 3D images. Computer aided detection. COMPARISON: Prior exam(s) dating back to June 03, 2023.. FINDINGS: The breasts are heterogeneously dense which may obscure small masses. Stable bilateral benign-appearing axillary lymph nodes. No suspicious masses, areas of developing architectural distortion, or suspicious calcifications. There has been no change since prior study. BI/SCRN MAMM (CAD)W/MONIQUE BILAT IMPRESSION: BI-RADS 2: BENIGN. RECOMMEND ANNUAL MAMMOGRAPHIC SCREENING. Follow-up code: Routine Follow-up The patient will be notified of the results by letter. Reading Location: [place] [id number]
--- NOTE | 2024-08-21 07:34 | BD_ITS ---
PROCEDURE: DEXA BONE DENSITY STUDY REASON FOR EXAM: F, age 58 y/o . Postmenopausal. TECHNIQUE: DEXA scan of the lumbar spine and both hips. COMPARISON: None. FINDINGS: Lumbar Spine (L1-L4): g/cm2 (0.827)/T-score (-2.0)/Z-score (-0.8) findings are suggestive of osteopenia with a moderate fracture risk. Left Femur Total: g/cm2 (0.765)/T-score (-1.5)/Z-score (-0.7) Left Femoral Neck: g/cm2 (0.630)/T-score (-2.0)/Z-score (-0.8) Right Femur Total: g/cm2 (0.810)/T-score (-1.1)/Z-score (-0.3) Right Femoral Neck: g/cm2 (0.716)/T-score (-1.2)/Z-score (-0.1) BD/Dexa Bone Density Study IMPRESSION: OSTEOPENIA. Reading Location: [place] [address]
== END | disposition home or self-care (01) ==
LOC: OPBD 07:31
PROVIDERS: PCP Internal Medicine; Referring Provider Internal Medicine; Visit Provider Internal Medicine
DX: Z12.31 Encounter for screening mammogram for malignant neoplasm of breast (principal); Z78.0 Asymptomatic menopausal state
CPT/HCPCS: 77063; 77067; 77080

== ENCOUNTER 2024-09-03 10:48 | Emergency (ER) | payer OTHER, SELFPAY ==
[2024-09-03 10:50] VITALS: BP 140/78; PULSE 69; RESP 16; TEMP 36.5; O2SAT 94; BMI 26.3
--- NOTE | 2024-09-03 11:10 | RAD_ITS ---
PROCEDURE: CHEST PA AND LATERAL REASON FOR EXAM: Back pain with radiation to the left arm. TECHNIQUE: Frontal and lateral views of the chest. COMPARISON: Comparison is made with prior study dated November 12, 2021. FINDINGS: EKG electrodes are seen. The heart size is normal. The mediastinal contour is unremarkable. The lungs are clear. The bones are unremarkable. RAD/Chest PA and Lateral IMPRESSION: NEGATIVE CHEST Reading Location: [id number]
--- NOTE | 2024-09-03 11:11 | ED.VIS.CHEST ---
HPI <HENNY Martell - Last Filed: 09/03/24 14:23> History of Present Illness Chief Complaint: Chest Pain Narrative Narrative: Patient presenting today due to an episode of chest pain that occurred this morning around 10 AM. She was sitting in a work meeting when she developed left-sided sharp chest pain that radiated to her left jaw, down her left arm and to the left side of her back. She reports that the pain lasted about 15 minutes and then resolved. She did take an aspirin. She denies any significant cardiac history. Reports that she had a stress test and echocardiogram in 2022 that was normal. She denies any recent illness, fevers, chills, shortness of breath, abdominal pain, nausea, and vomiting. She reports a PMH of anxiety, OA, and migraines. PE Risk Factors: Negative for Recent Travel/Surgery, Recent Immobilization, Prior DVT or PE or Cancer PFSH <HENNY Martell - Last Filed: 09/03/24 14:23> [facility] Medical History Screening for cardiovascular condition Acute bronchitis, unspecified Acute sinusitis, unspecified Influenza A Elective procedure for unacceptable cosmetic appearance Skin laxity Platysmal band of neck Excess skin of neck Facial aging Facial rhytids Anxiety Allergies Health care maintenance Low back pain Osteoarthritis Scoliosis of lumbar spine Segmental and somatic dysfunction of thoracic region Segmental and somatic dysfunction of cervical region Malaise Fatigue Hypersomnia Home Medications ?Medication ?Instructions ?Recorded ?Last Taken ?Type Lactobacillus acidophilus 1 tab PO DAILY 07/01/17 Unknown History (Acidophilus chewable tablet) galcanezumab-gnlm 120 mg/mL 120 mg subcut QMONTH #1 mL 05/29/24 Unknown Rx subcutaneous pen injector (Emgality Pen) meloxicam 15 mg tablet 15 mg PO DAILY PRN pain #90 tabs 05/29/24 Unknown Rx onabotulinumtoxinA 100 unit 200 unit IM ONCE #2 ea 05/29/24 Unknown Rx solution for injection (Botox) ondansetron HCl 4 mg tablet See Rx Instructions .Route 05/29/24 Unknown Rx .COMPLEX #30 tabs sumatriptan succinate 100 mg tablet See Rx Instructions PO .COMPLEX 05/29/24 Unknown Rx #12 tabs fluoxetine 20 mg tablet 60 mg (3 x 20 mg) PO DAILY 3 06/06/24 Unknown Rx months #270 tabs Allergy/AdvReac Type Severity Reaction Status Date / Time Sulfa (Sulfonamide Allergy Unknown Rash Verified 09/03/24 10:55 Antibiotics) Family History Mother Arthritis Heart disease Grandmother Diabetes Father Heart disease Other Anxiety Depression Hypertension Surgical History History of surgery on arm History of hand surgery History of hysterectomy History of laparoscopy Social History Smoking Status: Never smoker alcohol intake: current alcohol intake frequency: holidays/special occasions only substance use type: does not use caffeine: Yes what type of physical activity do you participate in: running frequency: 5-6 times per week seatbelt use: always do you feel safe at home: Yes additional social history: [employer] Patient works at [employer] Does Not Take Aspirin Does Not Take Ibuprofen ROS <HENNY Martell - Last Filed: 09/03/24 14:23> ROS ED Constitutional Constitutional ED: Denies chills or fever(s) Cardiovascular Cardiovascular: Reports chest pain; Denies palpitations Respiratory/Chest Respiratory/Chest: Denies cough or dyspnea Gastrointestinal Gastrointestinal: Denies abdominal pain, nausea or vomiting Musculoskeletal Musculoskeletal: Denies arthralgias or myalgias Integumentary Denies rash Neurologic Neurologic: Denies weakness EXAM <HENNY Martell - Last Filed: 09/03/24 14:23> Physical Exam Const Vital Signs: 09/03/24 10:50 09/03/24 12:45 09/03/24 13:30 Temperature 97.7 F L Temperature Source Oral Pulse Rate 69 Respiratory Rate 16 Blood Pressure 140/78 H 123/70 H Blood Pressure Mean 98 85 Pulse Ox 94 98 97 Oxygen Delivery Method Room Air 09/03/24 13:45 09/03/24 14:00 09/03/24 14:09 Temperature 98.3 F Temperature Source Pulse Rate 89 Respiratory Rate 16 Blood Pressure 124/73 H 124/73 H Blood Pressure Mean 90 90 Pulse Ox 97 96 96 Oxygen Delivery Method Positive well nourished, well developed and no apparent distress General Appearance ED: well developed HEENT Reports normocephalic and head/scalp atraumatic Mouth ED: Yes moist mucous membranes normal Eyes PERRL and EOMs intact bilaterally Neck full ROM and supple Chest Wall inspection of chest normal Resp normal respiratory effort and clear to auscultation bilaterally Cardio regular rate and regular rhythm GI soft to palpation, non-tender, non-distended and no masses Back/Spine normal ROM and normal to inspection Extremity normal to inspection and full ROM Neuro oriented x3, CN's II-XII intact bilaterally, moves all extremities, no focal motor deficits and no sensory deficits noted Sensorium / Orientation: awake and alert Psych mental status grossly normal and thought process normal Skin no rashes or lesions noted and no wounds <Dr. Cyrus Escalante MD - Last Filed: 09/03/24 14:11> Physical Exam Const Vital Signs: 09/03/24 10:50 09/03/24 12:45 09/03/24 13:30 Temperature 97.7 F L Temperature Source Oral Pulse Rate 69 Respiratory Rate 16 Blood Pressure 140/78 H 123/70 H Blood Pressure Mean 98 85 Pulse Ox 94 98 97 Oxygen Delivery Method Room Air 09/03/24 13:45 09/03/24 14:00 09/03/24 14:09 Temperature 98.3 F Temperature Source Pulse Rate 89 Respiratory Rate 16 Blood Pressure 124/73 H 124/73 H Blood Pressure Mean 90 90 Pulse Ox 97 96 96 Oxygen Delivery Method <HENNY Martell - Last Filed: 09/03/24 14:23> Heart Score Score: 2 <Dr. Cyrus Escalante MD - Last Filed: 09/03/24 14:11> Heart Score History: Moderately Suspicious ECG: Normal Age: >45 - <65 years Risk Factors: No Risk Factors Troponin: </= Normal Limit Score: 2 MDM <HENNY Martell - Last Filed: 09/03/24 14:23> [facility] Narrative Medical decision making narrative: Patient presenting today due to left-sided chest pain that occurred this morning around 10 AM. The episode lasted about 15 minutes and then resolved. She is now pain-free. She does not have a significant cardiac history. I reviewed her stress test and echocardiogram from 2022, most are unremarkable, her EF was 68%. Cardiac labs will be obtained. Low suspicion for PE. Labs were obtained, her CBC, BMP, and troponin are unremarkable. Nonsignificant delta troponin. EKG without any ischemia. Chest x-ray without any cardiopulmonary abnormality. Given her negative cardiac workup, recommended that she follow-up with her PCP, she will be discharged home in stable condition. Lab Data Attestation: I reviewed the patient's lab results. Labs: Laboratory Results - last 24 hr 09/03/24 09/03/24 11:16 13:18 WBC 4.9 RBC 3.91 L Hgb 11.8 L Hct 34.9 L MCV 89.3 MCH 30.2 MCHC 33.8 RDW Std Deviation 37.5 RDW Coeff of Jemma 11.7 Plt Count 238 MPV 10.0 Immature Gran % (Auto) 0.400 Neut % (Auto) 52.7 Lymph % (Auto) 31.1 Custer % (Auto) 9.3 Eos % (Auto) 4.7 Baso % (Auto) 1.8 H Absolute Neuts (auto) 2.6 Absolute Lymphs (auto) 1.53 Nucleated RBC % 0 Sodium 139 Potassium 3.6 Chloride 104 Carbon Dioxide 27.0 Anion Gap 7 BUN 14 Creatinine 0.59 Estim Creat Clear Calc 87.03 Est GFR (MDRD) Af Amer 135 Est GFR (MDRD) Non-Af 112 BUN/Creatinine Ratio 23.7 H Glucose 98 Calcium 9.4 Troponin I High Sens 3 5 Radiography Diagnostic Testing: Clinical Impression(s) from Imaging Studies Chest X-Ray 09/03/24 11:10 IMPRESSION: NEGATIVE CHEST Reading Location: [facility] EKG Initial EKG: Comments: 64 bpm, normal sinus rhythm, no ST elevation <Dr. Cyurs Escalante MD - Last Filed: 09/03/24 14:11> [facility] Lab Data Labs: Laboratory Results - last 24 hr 09/03/24 09/03/24 11:16 13:18 WBC 4.9 RBC 3.91 L Hgb 11.8 L Hct 34.9 L MCV 89.3 MCH 30.2 MCHC 33.8 RDW Std Deviation 37.5 RDW Coeff of Jemma 11.7 Plt Count 238 MPV 10.0 Immature Gran % (Auto) 0.400 Neut % (Auto) 52.7 Lymph % (Auto) 31.1 Custer % (Auto) 9.3 Eos % (Auto) 4.7 Baso % (Auto) 1.8 H Absolute Neuts (auto) 2.6 Absolute Lymphs (auto) 1.53 Nucleated RBC % 0 Sodium 139 Potassium 3.6 Chloride 104 Carbon Dioxide 27.0 Anion Gap 7 BUN 14 Creatinine 0.59 Estim Creat Clear Calc 87.03 Est GFR (MDRD) Af Amer 135 Est GFR (MDRD) Non-Af 112 BUN/Creatinine Ratio 23.7 H Glucose 98 Calcium 9.4 Troponin I High Sens 3 5 Radiography Diagnostic Testing: Clinical Impression(s) from Imaging Studies Chest X-Ray 09/03/24 11:10 IMPRESSION: NEGATIVE CHEST Reading Location: [id number] Two-view chest x-ray on my interpretation normal showing narrow mediastinum, no pleural effusion no infiltrate. Treatment and Re-Evaluation Comments:: I have personally performed a face to face assessment of the patient and have reviewed the HERNESTO Note. I performed a substantive portion of the visit including all aspects of the following. My marino findings include: History is 15-minute episode of nonpleuritic chest discomfort radiation to the jaw, back, left upper extremity while at rest. Was not preceded by an anxiety attack, she states she was sitting in a meeting. Had something similar couple years ago that led to a stress test and echocardiogram both of which were unremarkable according to the patient. She is asymptomatic at this time. Non-smoker Exam is well-appearing no distress. Heart regular without tachycardia. Equal pulses. Conversive in full sentences. No leg edema. Medical Decison Making low risk pretest probability for acute coronary syndrome along with a negative stress test 2 years ago, I am interpreting her EKG is completely normal. She is asymptomatic. If she has 2 separate independent troponin measurements that are negative, she will be able to go home and she does not have recurrent symptoms. Other additions or changes: [None] Discharge Plan Triage Chief Complaint: Chest Pain Other Complaint: Back ED Midlevel Provider: Birgit So ED Provider: Cyrus Escalante Dx/Rx/DC Orders Clinical Impression: Chest pain Instructions: ED Chest Pain, Uncertain Cause Prescriptions: No Action Lactobacillus acidophilus [Acidophilus] tablet,chewable 1 tab PO DAILY sumatriptan succinate 100 mg tablet See Rx Instructions PO .COMPLEX Qty: 12 6RF Rx Instructions: Take 1 tablet PO every 2 hours as needed for headache up to 2 tablets/day ondansetron HCl 4 mg tablet See Rx Instructions .ROUTE .COMPLEX Qty: 30 1RF Dose Instruction: TAKE 1 TABLET BY MOUTH EVERY 8 HOURS NEEDED FOR NAUSEA AND VOMITING Rx Instructions: TAKE 1 TABLET BY MOUTH EVERY 8 HOURS NEEDED FOR NAUSEA AND VOMITING Emgality Pen 120 mg/mL pen injector 120 mg subcut QMONTH Qty: 1 4RF Botox 100 unit recon soln 200 unit IM ONCE Qty: 2 0RF meloxicam 15 mg tablet 15 mg PO DAILY PRN (Reason: pain) Qty: 90 1RF fluoxetine 20 mg tablet 60 mg PO DAILY 90 Days Qty: 270 1RF Rx Instructions: Take 40mg AM and 20 mg at Noon Primary Care Provider: Stefan Knight Referrals: Stefan Knight MD [Primary Care Provider] - 5-7 Days Activity Restrictions/Additional Instructions: Follow-up with your PCP and return for worsening symptoms. Print Language: Pakistani Disposition Disposition: Home, Self Care
[2024-09-03 11:24] LABS: Absolute Lymphocyte Count 1.53 X10^3/uL (0.83-4.51); Absolute Neutrophil Count 2.6 X10^3/uL (2.0-7.7); Basophil# 0.09 X10^3/uL; Basophil% 1.8 % (0-1); Eosinophil# 0.23 X10^3/uL; Eosinophils% 4.7 % (0-5); Hematocrit 34.9 % (37-47); Hemoglobin 11.8 g/dL (12.0-15.0); Lymphocyte # 1.53 X10^3/ul (0.83-4.51); Lymphocyte % 31.1 % (19-41); Mean Corp Hgb Conc 33.8 g/dL (32-36); Mean Corpuscular Hgb 30.2 pg (27.0-32.0); Mean Corpuscular Volume 89.3 fL (81-99); Monocyte# 0.46 X10^3/uL; Monocyte% 9.3 % (0-10); NRBC Flagged by Analyzer 0 % (0-5); Neutrophil # 2.59 X10^3/uL (2.7-7.7); Neutrophil % 52.7 % (47-70); Platelet Count 238 K/mm3 (150-450); RBC Distribution Width CV 11.7 % (11.6-14.6); RBC Distribution Width SD 37.5 fl (35.1-43.9); Red Blood Count 3.91 M/mm3 (4.2-5.4); White Blood Count 4.9 K/mm3 (4.4-11.0)
[2024-09-03 11:41] LABS: Anion Gap 7 (5-15); BUN 14 mg/dL (7-18); BUN/Creat Ratio 23.7 RATIO (10-20); Calcium,Total 9.4 mg/dL (8.5-10.1); Chloride 104 mmol/L (98-107); Creatinine, Serum 0.59 mg/dL (0.55-1.02); EST Glomerular Filtration Rate 112 mL/min (>60); Est Glom Filt Rate - Afr Amer 135 mL/min (>60); Estimated Creatinine Clearance 87.03 ml/min; Glucose 98 mg/dL (74-106); Potassium 3.6 mmol/L (3.5-5.1); Sodium Level 139 mmol/L (136-145); Troponin-I HS (w/2H Reflex) 3 pg/mL (3.0-54.0)
[2024-09-03 12:45] VITALS: BP 123/70; O2SAT 98
[2024-09-03 13:18] LABS: Reflex Troponin-HS? (from REC) Y
[2024-09-03 13:30] VITALS: O2SAT 97
[2024-09-03 13:45] VITALS: O2SAT 97
[2024-09-03 13:51] LABS: Troponin-I HS 5 pg/mL (3.0-54.0)
[2024-09-03 14:00] VITALS: BP 124/73; O2SAT 96
[2024-09-03 14:09] VITALS: BP 124/73; PULSE 89; RESP 16; TEMP 36.8; O2SAT 96
== END 2024-09-03 14:27 | disposition home or self-care (01) ==
PROVIDERS: Physician Assistant; Emergency Provider Emergency Medicine; PCP Internal Medicine; Visit Provider Emergency Medicine
DX: R07.9 Chest pain, unspecified (principal); Z82.49 Family history of ischemic heart disease and other diseases of the circulatory system; Z90.710 Acquired absence of both cervix and uterus; F41.9 Anxiety disorder, unspecified
CPT/HCPCS: 71046; 80048; 84484; 85025; 93005; 99285; A4216

== ENCOUNTER → 2024-10-09 | Outpatient (CLI) | payer OTHER, SELFPAY ==
--- NOTE | 2024-10-09 07:01 | MRI_ITS ---
EXAM: MRI cervical spine with and without contrast CLINICAL HISTORY: Cervicalgia, hyperreflexia, gait imbalance and neck pain COMPARISON: Cervical spine radiograph 12/22/2022 TECHNIQUE: Multiplanar multisequence MRI of the cervical spine with and without contrast. IV Clariscan was administered. FINDINGS: The vertebral body heights and alignment are maintained. Grade 1 anterolisthesis of C2 on C3. No evidence of compression fracture. The bone marrow signal is unremarkable. Cervicomedullary junction is unremarkable. Cervical cord is normal in caliber and signal intensity. No abnormal cord signal. No suspicious parenchymal or leptomeningeal enhancement. Prevertebral soft tissues are unremarkable Disc Spaces: C2-3: No significant disc contour abnormality. No significant spinal canal stenosis or foraminal stenosis. C3-4: Tiny disc osteophyte complex and mild uncinate hypertrophy with flattening of the ventral thecal sac. No significant canal stenosis or neural foraminal narrowing.. C4-5: Disc osteophyte complex, uncinate hypertrophy and facet degenerative changes with moderate canal stenosis. [id number]-left moderate neural foraminal narrowing.. C5-6: Small disc osteophyte complex and mild uncinate hypertrophy without significant canal stenosis or neural foraminal narrowing. C6-7: [id number]-right uncinate hypertrophy and mild disc osteophyte complex. No significant canal stenosis. Moderate left and mild right neural foraminal narrowing. C7-T1: No significant disc contour abnormality. No significant spinal canal stenosis or foraminal stenosis. MRI/Spine Cervical W/WO Contrast IMPRESSION: 1. No acute findings of the cervical spine. 2. No cord signal abnormality, abnormal parenchymal or leptomeningeal enhanceme nt. 3. Multilevel degenerative changes, most prominent at C4-C5 with up to moderate canal stenosis and neural foraminal narrowing. Reading Location: [facility]
[2024-10-09 09:05] LABS: Thyroid Stim Hormone (TSH) < 0.005 uIU/mL (0.300-4.200); Vitamin D,25 Hydroxy 51.3 ng/mL (30-100)
== END | disposition home or self-care (01) ==
PROVIDERS: PCP Internal Medicine; Referring Provider Physician Assistant; Visit Provider Psychiatry & Neurology Neurology
DX: M54.2 Cervicalgia (principal); R26.9 Unspecified abnormalities of gait and mobility; R07.9 Chest pain, unspecified; F41.8 Other specified anxiety disorders; E55.9 Vitamin D deficiency, unspecified
CPT/HCPCS: 36415; 72156; 82306; 84443; A9575

== ENCOUNTER → 2024-10-11 | Outpatient (CLI) | payer OTHER, SELFPAY ==
[2024-10-11 10:27] LABS: Free T3 11.4 pg/mL (2.18-3.98); T4 Total, Thyroxin 11.6 ug/dL (4.8-13.9)
[2024-10-12 15:08] LABS: Thyroglobulin Antibody < 1.0 IU/mL (0.0-0.9); Thyroid Peroxidase AB 17 IU/mL (0-34)
== END | disposition home or self-care (01) ==
LOC: LAB 08:19
PROVIDERS: PCP Internal Medicine; Referring Provider Physician Assistant; Visit Provider Physician Assistant
DX: E05.90 Thyrotoxicosis, unspecified without thyrotoxic crisis or storm (principal)
CPT/HCPCS: 36415; 84436; 84439; 84445; 84481; 86376; 86800

== ENCOUNTER → 2024-10-19 | Outpatient (CLI) | payer OTHER, SELFPAY ==
[2024-10-19 12:48] LABS: Absolute Lymphocyte Count 1.28 X10^3/uL (0.83-4.51); Absolute Neutrophil Count 5.3 X10^3/uL (2.0-7.7); Basophil# 0.07 X10^3/uL; Basophil% 0.9 % (0-1); Eosinophils% 2.6 % (0-5); Hematocrit 35.3 % (37-47); Hemoglobin 11.7 g/dL (12.0-15.0); Lymphocyte # 1.28 X10^3/ul (0.83-4.51); Lymphocyte % 16.9 % (19-41); Mean Corp Hgb Conc 33.1 g/dL (32-36); Mean Corpuscular Hgb 29.6 pg (27.0-32.0); Mean Corpuscular Volume 89.4 fL (81-99); Mean Platelet Vol. 10.3 fl (6.2-12.0); Monocyte# 0.73 X10^3/uL; Monocyte% 9.6 % (0-10); NRBC Flagged by Analyzer 0 % (0-5); Neutrophil # 5.29 X10^3/uL (2.7-7.7); Neutrophil % 69.7 % (47-70); Platelet Count 242 K/mm3 (150-450); RBC Distribution Width CV 11.4 % (11.6-14.6); RBC Distribution Width SD 37.1 fl (35.1-43.9); Red Blood Count 3.95 M/mm3 (4.2-5.4); White Blood Count 7.6 K/mm3 (4.4-11.0)
[2024-10-19 13:40] LABS: Free T3 6.2 pg/mL (2.18-3.98); Thyroid Stim Hormone (TSH) < 0.005 uIU/mL (0.300-4.200)
== END | disposition home or self-care (01) ==
LOC: LAB 12:32
PROVIDERS: Internal Medicine Endocrinology, Diabetes & Metabolism; PCP Internal Medicine; Referring Provider Internal Medicine; Visit Provider Internal Medicine
DX: E05.90 Thyrotoxicosis, unspecified without thyrotoxic crisis or storm (principal); J02.9 Acute pharyngitis, unspecified
CPT/HCPCS: 36415; 84439; 84443; 84481; 85025

== ENCOUNTER → 2024-11-12 | Outpatient (CLI) | payer OTHER, SELFPAY ==
[2024-11-12 15:10] LABS: Free T3 1.9 pg/mL (2.18-3.98); Thyroid Stim Hormone (TSH) 0.279 uIU/mL (0.300-4.200)
== END | disposition home or self-care (01) ==
LOC: LAB 11:23
PROVIDERS: PCP Internal Medicine; Referring Provider Internal Medicine Endocrinology, Diabetes & Metabolism; Visit Provider Internal Medicine Endocrinology, Diabetes & Metabolism
DX: E05.90 Thyrotoxicosis, unspecified without thyrotoxic crisis or storm (principal)
CPT/HCPCS: 36415; 84439; 84443; 84481

== ENCOUNTER → 2024-11-27 | Outpatient (CLI) | payer OTHER, SELFPAY ==
[2024-11-27 11:23] LABS: Free T3 2.1 pg/mL (2.18-3.98)
== END | disposition home or self-care (01) ==
LOC: LAB 09:36
PROVIDERS: PCP Internal Medicine; Referring Provider Internal Medicine Endocrinology, Diabetes & Metabolism; Visit Provider Internal Medicine Endocrinology, Diabetes & Metabolism
DX: E05.90 Thyrotoxicosis, unspecified without thyrotoxic crisis or storm (principal)
CPT/HCPCS: 36415; 84439; 84443; 84481

== ENCOUNTER → 2024-12-17 | Outpatient (CLI) | payer OTHER, SELFPAY ==
[2024-12-17 13:55] LABS: Free T3 2.9 pg/mL (2.18-3.98)
== END | disposition home or self-care (01) ==
LOC: LAB 11:23
PROVIDERS: PCP Internal Medicine; Referring Provider Internal Medicine Endocrinology, Diabetes & Metabolism; Visit Provider Internal Medicine Endocrinology, Diabetes & Metabolism
DX: E05.90 Thyrotoxicosis, unspecified without thyrotoxic crisis or storm (principal)
CPT/HCPCS: 36415; 84439; 84443; 84481

== ENCOUNTER → 2025-01-15 | Outpatient (CLI) | payer OTHER, SELFPAY ==
[2025-01-15 10:27] LABS: Free T3 2.7 pg/mL (2.18-3.98)
== END | disposition home or self-care (01) ==
LOC: LAB 08:43
PROVIDERS: PCP Internal Medicine; Referring Provider Internal Medicine Endocrinology, Diabetes & Metabolism; Visit Provider Internal Medicine Endocrinology, Diabetes & Metabolism
DX: E05.90 Thyrotoxicosis, unspecified without thyrotoxic crisis or storm (principal)
CPT/HCPCS: 36415; 84439; 84443; 84481

== ENCOUNTER → 2025-02-13 | Outpatient (CLI) | payer OTHER, SELFPAY ==
[2025-02-13 14:32] LABS: Free T3 2.6 pg/mL (2.18-3.98)
== END | disposition home or self-care (01) ==
LOC: LAB 13:18
PROVIDERS: PCP Internal Medicine; Referring Provider Internal Medicine Endocrinology, Diabetes & Metabolism; Visit Provider Internal Medicine Endocrinology, Diabetes & Metabolism
DX: E05.90 Thyrotoxicosis, unspecified without thyrotoxic crisis or storm (principal)
CPT/HCPCS: 36415; 84439; 84443; 84481

== ENCOUNTER → 2025-04-08 | Outpatient (CLI) | payer OTHER, SELFPAY ==
--- OUTSIDE RECORDS SUMMARY | 2025-04-08 09:10 | XMS RPT_ITS | CCD ---
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 Justice Grace Primary Care Provider [phone] Dr. Justice Knight Attending Provider [phone] Dr. Justice Knight Referring Provider [phone] Dr. Mike Garcia Attending Provider [phone] Dr. Kaveh Sloan Attending Provider HENNY Stacy Attending Provider HENNY Ferrer Attending Provider Dr. Justice Knight Primary Care Provider [phone] Dr. Justice Knight Referring Provider [phone] Lucas SILVA, JARRETT Olivas Attending Provider [phone] Dr. Justice Knight Primary Care Provider [phone] Dr. Justice Knight Referring Provider [phone] HENNY Stacy Attending Provider Dr. Genaro Dorman Attending Provider [phone] Justice Knight Primary Care Provider [phone] Dr. Justice Knight Referring Provider [phone] Dr. Genaro Dorman Referring Provider [phone] Wes Zaragoza Attending Provider Dr. Samantha Morejon Attending Provider [phone] Justice Knight Primary Care Provider [phone] Dr. Justice Knight Referring Provider [phone] Jean-Pierre, Dr. Singh Attending Provider [phone] Dr. Justice Knight Attending Provider [phone] Dosgamaliel, Dr. Singh Referring Provider [phone] Eugene, Dr. Aviles Primary Care Provider [phone] Eugene, Dr. Aviles Referring Provider [phone] Dr. Wes Zaragoza Attending Provider Unavailable Primary Care Provider [facility] eladia Knight MD, Dr. Aviles Primary Care Provider Eugene GAINES, Dr. Aviles Attending Provider [phone] Eugene GAINES, Dr. Aviles Referring Provider [phone] Boris GAINES, Dr. Bridges Attending Provider Dr. Cyrus Escalante MD Emergency Provider Markus Rivera Attending Provider Dr. Wes Zaragoza MD Attending Provider Mitra Boland Attending Provider Markus Rivera Referring Provider King EDER, Dr. Weston Attending Provider Eugene GAINES, Dr. Aviles Primary Care Provider Eugene GAINES, Dr. Aviles Attending Provider [phone] Eugene GAINES, Dr. Aviles Referring Provider [phone] Mitra Boland Referring Provider Santiago Figueroa Attending Provider King EDER, Dr. Weston Referring Provider Eugene GAINES, Dr. Aviles Primary Care Provider Eugene GAINES, Dr. Aviles Referring Provider [phone] Eugene GAINES, Dr. Aviles Attending Provider [phone] Eugene GAINES, Dr. Aviles Primary Care Provider Eugene GAINES, Dr. Aviles Referring Provider [phone] Markus Rivera Attending Provider [phone] Eugene GAINES, Dr. Aviles Primary Care Provider Eugene GAINES, Dr. Aviles Referring Provider [phone] King EDER, Dr. Weston Attending Provider Mila GAINES, Dr. Harvey Attending Provider Oleghe, Efewongbe Referring Unavailable Oleghe, Efewongbe Attending Unavailable Oleghe, Efewongbe Primary Care Unavailable Oleghe, Efewongbe Primary Care Unavailable Cyrus Escalante Attending Unavailable Oleghe, Efewongbe Primary Care Unavailable Valerio, Enrico Attending Unavailable Valerio, Enrico Referring Unavailable Oleghe, Efewongbe Referring Unavailable Oleghe, Efewongbe Attending Unavailable Oleghe, Efewongbe Primary Care Unavailable Oleghe, Efewongbe Primary Care Unavailable Valerio, Enrico Attending Unavailable Valerio, Enrico Referring Unavailable Oleghe, Efewongbe Primary Care Unavailable Valerio, Enrico Referring Unavailable , Enrico Attending Unavailable Wes Zaragoza Attending Unavailable Oleghe, Efewongbe Primary Care Unavailable Markus Rivera Referring Unavailable Oleghe, Efewongbe Primary Care Unavailable Markus Rivera Referring Unavailable Markus Rivera Attending Unavailable Wes Zaragoza Attending Unavailable Oleghe, Efewongbe Primary Care Unavailable Oleghe, Efewongbe Referring Unavailable NortherMitra Referring Unavailable Mitra Lopez Attending Unavailable Oleghe, Efewongbe Primary Care Unavailable Oleghe, Efewongbe Primary Care Unavailable Oleghe, Efewongbe Referring Unavailable Oleghe, Efewongbe Attending Unavailable Oleghe, Efewongbe Primary Care Unavailable Valerio, Enrico Referring Unavailable Valerio, Enrico Attending Unavailable Oleghe, Efewongbe Primary Care Unavailable Oleghe, Efewongbe Referring Unavailable Valerio, Enrico Attending Unavailable Santiago Figueroa Attending Unavailable Oleghe, Efewongbe Primary Care Unavailable Oleghe, Efewongbe Referring Unavailable Wes Zaragoza Attending Unavailable Oleghe, Efewongbe Primary Care Unavailable Oleghe, Efewongbe Referring Unavailable BaddoWes guan Attending Unavailable Oleghe, Efewongbe Primary Care Unavailable Oleghe, Efewongbe Referring Unavailable Oleghe, Efewongbe Attending Unavailable Oleghe, Efewongbe Primary Care Unavailable Oleghe, Efewongbe Referring Unavailable Oleghe, Efewongbe Primary Care Unavailable Enrico Luo Attending Unavailable Oleghe, Efewongbe Referring Unavailable Wes Zaragoza Referring Unavailable GraciadoWes guan Attending Unavailable Oleghe, Efewongbe Primary Care Unavailable Oleghe, Efewongbe Referring Unavailable Oleghe, Efewongbe Primary Care Unavailable Markus Rivera Attending Unavailable Oleghe, Efewongbe Primary Care Unavailable Enrico Luo Attending Unavailable Enrico Luo Referring Unavailable Allergies Allergy Classification Reported Allergen(s) Allergy Type Date of Onset Reaction(s) Facility (1 source) Sulfonamides (Antibiotic) drug allergy 05-25-2016 Rash [facility] Work Phone: (17 sources) Sulfonamides (Antibiotic); Translations: [Sulfa (Sulfonamide Antibiotics)] Allergy to substance 09-08-2021 Anne [facility] Medications Current Medications Medication Drug Class(es) Dates Sig (Normalized) Sig (Original) 1.5 ml fremanezumab-vfrm 150 mg/ml auto-injector (12 sources) Start: 09-30-2024 End: 12-25-2024 Fremanezumab-Vfrm (Ajovy Autoinjector) 225 mg/1.5 mL auto-injector Active 225 mg SC EVERY MONTH 1.5 4 December 25, 2024 9:36am Ipratropium Lagro 21 mcg (0.03 %) spray,non-aerosol (6 sources) Start: 11-09-2024 Ipratropium Lagro 21 mcg (0.03 %) spray,non-aerosol Active 2 NMA INTRANASAL 2 to 3 times per day as needed for postnasal drainage 30 November 09, 2024 12:00am administer into each nostril Start: 11-09-2024 Ipratropium Br omide 21 mcg (0.03 %) spray,non-aerosol Active 2 NMA INTRANASAL 2 to 3 times per day as needed for postnasal drainage November 09, 2024 12:00am administer into each nostril lactobacillus acidophilus (17 sources) Start: 07-01-2017 take 1 tablet by mouth once daily Lactobacillus acidophilus chewable tablet Active 1 TABLET PO DAILY July 01, 2017 12:25pm Start: 07-01-2017 Lactobacillus Acidophilus (Acidophilus) tablet,chewable Active 1 {tbl} PO DAILY July 01, 2017 1:00am Start: 07-01-2017 take 1 tablet by susana th once daily Lactobacillus acidophilus chewable tablet Active 1 TABLET PO DAILY July 01, 2017 12:00am Start: 07-01-2017 take 1 tablet by susana th once daily Lactobacillus acidophilus chewable tablet Active 1 TABLET PO DAILY July 01, 2017 1:00am Start: 10-07-2016 ACIDOPHILUS [facility] as directed PROBIOTIC PRODUCT CHEW [id number] Trinidad Alves LPN methIMAzole 10 mg oral tablet (20 sources) Thyroid Hormone Synthesis Inhibitor Start: 11-27-2024 take 5 mg by mouth once daily Methimazole 10 mg tablet Active 5 mg PO daily 180 November 27, 2024 1:03pm Start: 11-12-2024 End: 11-27-2024 take 1 tablet by mouth once daily Methimazole 10 mg tablet Discontinued 10 mg PO daily 180 November 12, 2024 3:44pm November 27, 2024 1:03pm Start: 10-12-2024 End: 11-12-2024 take 2 tablets by mouth once daily Methimazole 10 mg tablet Discontinued 20 mg PO daily 180 October 12, 2024 12:00am November 12, 2024 3:44pm 24 hr metoprolol succinate 25 mg extended release oral tablet (14 sources) beta-Adrenergic Donovan Start: 10-12-2024 End: 12-17-2024 take 1 tablet by mouth once daily Metoprolol Succinate 25 mg tablet extended release 24 hr Active 25 mg PO daily 30 December 17, 2024 1:13pm ondansetron 4 mg oral tablet (20 sources) Serotonin-3 Receptor Antagonist Start: 09-30-2024 End: 12-25-2024 take 1 tablet by mouth three times daily as needed for nausea and vomiting Ondansetron Hcl 4 mg tablet Active 4 mg PO THREE TIMES A DAY as needed for nausea and vomiting 30 December 25, 2024 9:37am Start: 02-13-2021 End: 09-30-2024 take 1 tablet by mouth every eight hours as needed for nausea and vomiting Ondansetron Hcl 4 mg tablet Discontinued 0 .ROUTE .COMPLEX 30 June 11, 2022 10:41am December 01, 2022 4:14pm TAKE 1 TABLET BY MOUTH EVERY 8 HOURS NEEDED FOR NAUSEA AND VOMITING Start: 08-23-2018 End: 08-27-2019 Ondansetron Hcl (Zofran) 4 m g tablet Discontinued 4 mg PO 2 to 3 times per day as needed August 23, 2018 1:00am August 27, 2019 9:09am Start: 11-02-2017 End: 11-18-2017 take 1 tablet by mouth every six hours as needed for nausea Ondansetron Hcl (Zofran) 4 mg tablet Discontinued 4 mg PO EVERY 6 HOURS as needed for nausea 30 3 November 02, 2017 12:00am November 18, 2017 8:09am Start: 03-02-2017 End: 11-02-2017 take 1 tablet by mouth every eight hours as needed for nausea Ondansetron 4 MG tablet Discontinued 4 mg PO EVERY 8 HOURS NEEDED as needed for Nausea March 02, 2017 12:00am November 02, 2017 10:48am Completed/Discontinued Medications Medication Drug Class(es) Dates Sig (Normalized) Sig (Original) acetaminophen 325 mg / butalbital 50 mg oral tablet (20 sources) Barbiturate Start: 08-26-2017 End: 11-02-2017 Butalbital-Acetamin ophen 50-325 mg tablet Discontinued 1 {tbl} PO TWICE A DAY as needed for migraine headache 60 1 August 26, 2017 2:03pm November 02, 2017 10:24am Start: 08-26-2017 End: 11-02-2017 take 1 tablet by mouth twice daily Butalbital-Acetaminophen Discontinued 1 TABLET PO TWICE A DAY 60 August 26, 2017 2:03pm November 02, 2017 10:24am acetaminophen 300 mg / butalbital 50 mg / caffeine 40 mg oral capsule (17 sources) Barbiturate, Central Nervous System Stimulant, Methylxanthine Start: 08-23-2018 End: 03-30-2019 Clrmietbwy-Gyedgvfbvcpfc-Gxz f (Fioricet) 50-300-40 mg capsule Discontinued 1 NMA PO Q4H as needed August 23, 2018 1:00am March 30, 2019 10:49am Start: 05-25-2016 FIORICET 05/25 FIORICET Samantha Morejon DC acetaminophen 325 mg / oxyCODONE hydrochloride 5 mg oral tablet (10 sources) Opioid Agonist Start: 11-05-2023 End: 06-06-2024 Oxycodone-Acetaminophen (Percocet) 5-325 mg tablet Discontinued 1 {tbl} PO EVERY 6 HOURS as needed for pain 12 3 0 November 05, 2023 June 06, 2024 11:50am Closed fracture of right distal radius amoxicillin 500 mg oral capsule (16 sources) Penicillin-class Antibacterial Start: 04-14-2020 End: 04-24-2020 take 1 capsule by mouth twice daily Amoxicillin 500 mg capsule Discontinued 500 mg PO TWICE A DAY 20 10 0 April 14, 2020 12:00am April 23, 2020 12:00am April 24, 2020 12:02am amoxicillin 875 mg / clavulanate 125 mg oral tablet (20 sources) Penicillin-class Antibacterial Start: 01-02-2021 End: 02-18-2021 Amoxicillin-Pot Clavulanate (Augmentin) 875-125 mg tablet Discontinued 1 {tbl} PO TWICE A DAY 14 0 January 02, 2021 8:58am February 18, 2021 3:36pm Start: 07-21-2017 End: 09-20-2017 Amoxicillin-Pot Clavulanate 500-125 mg tablet Discontinued 1 {tbl} PO TWICE A DAY 20 0 July 21, 2017 1:00am September 20, 2017 2:38pm Start: 07-21-2017 End: 09-20-2017 take 1 tablet by mouth twice daily Amoxicillin-Pot Clavulanate Discontinued 1 TABLET PO TWICE A DAY July 21, 2017 1:00am September 20, 2017 2:38pm baclofen 10 mg oral tablet (10 sources) gamma-Aminobutyric Acid-ergic Agonist Start: 07-19-2023 End: 11-22-2023 take 1 tablet by mouth three times daily as needed for pain Baclofen 10 mg tablet Discontinued 10 mg PO THREE TIMES A DAY as needed for muscle pain/muscle spasm 90 5 July 19, 2023 1:00am November 22, 2023 8:23am benzonatate 100 mg oral capsule (16 sources) Non-narcotic Antitussive Start: 06-12-2018 End: 08-23-2018 take 1 capsule by mouth three times daily as needed for cough Benzonatate (Tessalon Perles) 100 mg capsule Discontinued 100 mg PO THREE TIMES A DAY as needed for cough 60 1 June 12, 2018 1:00am August 23, 2018 2:05pm onabotulinumtoxina 100 unt injection (20 sources) Acetylcholine Release Inhibitor Start: 07-19-2023 End: 12-25-2024 inject 100 [IU] by intramuscular injection once Onabotulinumtoxina (Botox) 100 unit recon soln Discontinued 200 U IM ONCE 2 0 May 29, 2024 5:42pm December 25, 2024 9:39am Start: 07-19-2023 inject 100 [IU] by intramuscular injection once Onabotulinumtoxina (Botox) 100 unit recon soln Active 200 UNIT IM ONCE 2 July 19, 2023 1:00am cephalexin 500 mg oral capsule (6 sources) Cephalosporin Antibacterial Start: 11-09-2024 End: 11-19-2024 take 1 capsule by mouth every twelve hours Cephalexin 500 mg capsule Discontinued 500 mg PO Q12H 20 10 0 November 09, 2024 12:00am November 18, 2024 12:00am November 19, 2024 12:08am clindamycin 20 mg/ml vaginal cream (16 sources) Lincosamide Antibacterial Start: 02-26-2019 End: 03-01-2019 Clindamycin Phosphate 2 % cream Discontinued 1 NMA VAGINAL AT BEDTIME 40 3 0 February 26, 2019 12:00am February 28, 2019 12:00am March 01, 2019 12:06am Start: 02-26-2019 End: 03-01-2019 Clindamycin Phosphate Discon tinued 1 APPFUL VAGINAL AT BEDTIME 40 3 February 26, 2019 12:00am March 01, 2019 12:06am dextromethorphan hydrobromide 2 mg/ml / guaiFENesin 40 mg/ml oral suspension (15 sources) Uncompetitive Q-lmsubh-L-aspartate Receptor Antagonist, Sigma-1 Agonist Start: 11-10-2021 End: 03-04-2022 take 1 mL by mouth every eight hours as needed for cough Dextromethorphan-Guaifenesin 10-200 mg/5 mL liquid Discontinued 10 mL PO Q8H as needed for cough 118 0 November 10, 2021 12:00am March 04, 2022 9:37am Start: 11-10-2021 End: 03-04-2022 take 1 mL by mouth every eight hours Dextromethorphan-Guaifenesin Discontinue d 10 ML PO Q8H 118 November 10, 2021 12:00am March 04, 2022 9:37am estradiol 0.1 mg/ml vaginal cream (20 sources) Estrogen Start: 08-23-2018 End: 08-27-2019 Estradiol (Estrace) 0.01 % (0.1 mg/gram) cream Discontinued 0 VAGINAL .COMPLEX 42.5 2 August 23, 2018 2:15pm August 27, 2019 9:08am pea sized amount VAGINAL twice a week; Start: 08-23-2018 End: 04-29-2023 Estradiol 0.01 % (0.1 mg/gra m) cream Discontinued 0 .ROUTE .COMPLEX 42.5 2 August 27, 2019 1:00am April 29, 2023 9:27am small amount vaginally twice a week; Start: 11-02-2017 End: 11-02-2017 Estradiol (Estrace) 2 mg tab let Discontinued mg PO 0 November 02, 2017 12:00am November 02, 2017 10:46am Start: 11-02-2017 End: 08-23-2018 Estradiol (Estrace) 0.01 % ( 0.1 mg/gram) cream Discontinued 0 VAGINAL .COMPLEX 42.5 0 November 02, 2017 12:00am August 23, 2018 2:17pm pea sized amount VAGINAL every other day X 4 weeks then twice a week; Start: 11-02-2017 End: 08-23-2018 Estradiol (Estrace) 0.01 % ( 0.1 mg/gram) cream Discontinued 0 VAGINAL .COMPLEX 42.5 November 02, 2017 12:00am August 23, 2018 2:17pm pea sized amount VAGINAL every other day X 4 weeks then twice a week; fluconazole 150 mg oral tablet (20 sources) Azole Antifungal Start: 01-02-2021 End: 02-18-2021 take 1 tablet by mouth once Fluconazole (Diflucan) 150 mg tablet Discontinued 150 mg PO ONCE 1 0 January 02, 2021 9:00am February 18, 2021 3:36pm as a single dose Start: 11-18-2020 End: 11-20-2020 Fluconazole 150 mg tablet Di scontinued 150 mg PO .COMPLEX 2 0 November 18, 2020 12:00am November 20, 2020 8:08am 150 mg PO take one po now and repeat in 3 days Start: 04-21-2020 End: 09-01-2020 Fluconazole 150 mg tablet Di scontinued 150 mg PO Every 3 Days 2 0 0 April 21, 2020 12:00am September 01, 2020 9:13am may repeat second dose 72 hrs after first dose if symptoms persist Start: 02-25-2020 End: 03-17-2020 Fluconazole 150 mg tablet Di scontinued 150 mg PO Every 3 Days 2 0 0 February 25, 2020 12:00am March 17, 2020 8:20am may repeat second dose 72 hrs after first dose if symptoms persist FLUoxetine 20 mg oral tablet (20 sources) Serotonin Reuptake Inhibitor Start: 08-28-2021 End: 02-04-2025 take 2 tablets by mouth once daily Fluoxetine 20 mg tablet Discontinued 40 mg PO DAILY 180 0 April 30, 2024 2:29pm June 06, 2024 12:18pm Start: 08-28-2021 End: 04-29-2023 take 40 mg by mouth once daily Fluoxetine Discontinued 40 MG PO DAILY 180 December 30, 2022 1:01pm April 29, 2023 10:56am Start: 07-22-2017 End: 08-28-2021 take 1 tablet by mouth twice daily Fluoxetine 20 mg tablet Discontinued 20 mg PO TWICE A DAY 180 August 04, 2020 2:08pm August 28, 2021 9:47am Start: 07-21-2017 End: 07-22-2017 take 1 tablet by mouth once daily Fluoxetine 20 mg tablet Discontinued 20 mg PO daily 60 July 21, 2017 1:00am July 22, 2017 1:33pm Start: 03-02-2017 End: 07-21-2017 take 1 capsule by mouth once daily Fluoxetine 20 MG capsule Discontinued 20 mg PO DAILY March 02, 2017 12:00am July 21, 2017 3:06pm Start: 05-25-2016 PROZAC PROZAC Samantha Morejon DC fluticasone propionate 0.05 mg/actuat metered dose nasal spray (16 sources) Corticosteroid Start: 07-24-2019 End: 08-27-2019 take 50 ug nasal route once daily Fluticasone Propionate (Flonase Allergy Relief) 50 mcg/actuation spray,suspension Discontinued 2 NMA INTRANASAL DAILY 15.8 1 July 24, 2019 1:00am August 27, 2019 9:08am administer into each nostril Start: 07-24-2019 End: 08-27-2019 take 1 spray(s) nasal route once daily Fluticasone Propionate (Flonase Allergy Relief) 50 mcg/actuation spray,suspension Discontinued 2 SPRAY INTRANASAL DAILY 15.8 July 24, 2019 1:00am August 27, 2019 9:08am administer into each nostril 1 ml galcanezumab-gnlm 120 mg/ml auto-injector (9 sources) Start: 05-29-2024 End: 09-30-2024 Galcanezumab-Gnlm (Emgality Pen) 120 mg/mL pen injector Discontinued 120 mg SC EVERY MONTH 1 4 May 29, 2024 1:00am September 30, 2024 1:48pm levoFLOXacin 500 mg oral tablet (15 sources) Quinolone Antimicrobial Start: 11-12-2021 End: 03-04-2022 take 1 tablet by mouth once daily Levofloxacin 500 mg tablet Discontinued 500 mg PO DAILY 7 0 November 12, 2021 12:00am March 04, 2022 9:37am loratadine 10 mg oral tablet (16 sources) Start: 11-02-2017 End: 08-27-2019 take 1 tablet by mouth once daily as needed Loratadine (Claritin) 10 mg tablet Discontinued 10 mg PO daily as needed for Allergies November 02, 2017 12:00am August 27, 2019 9:08am LORazepam 0.5 mg oral tablet (16 sources) Benzodiazepine Start: 06-12-2018 End: 08-23-2018 take 0.25 mg by mouth at bedtime as needed for sleep Lorazepam (Ativan) 0.5 mg tablet Discontinued 0.25 mg PO AT BEDTIME as needed for sleep 10 0 June 12, 2018 1:00am August 23, 2018 2:05pm Insomnia, unspecified meloxicam 15 mg oral tablet (20 sources) Nonsteroidal Anti-inflammatory Drug Start: 07-19-2023 End: 12-25-2024 take 1 tablet by mouth once daily Meloxicam 15 mg tablet Discontinued 15 mg PO DAILY 90 1 September 13, 2024 5:27pm September 30, 2024 1:50pm pain Start: 03-02-2017 End: 07-19-2023 take 1 tablet by mouth once daily as needed for pain Meloxicam 7.5 mg tablet Discontinued 0 .ROUTE .COMPLEX 30 0 March 07, 2023 3:56pm April 29, 2023 9:27am TAKE 1 TABLET BY MOUTH ONCE DAILY NEEDED FOR PAIN Start: 05-25-2016 ABDON ABDON Morejon DC methylPREDNISolone 4 mg oral tablet (16 sources) Corticosteroid Start: 07-24-2019 End: 08-15-2019 take 1 tablet by mouth once Methylprednisolone (Medrol (Brian)) 4 mg tablets,dose pack Discontinued 0 PO per package directions 21 0 July 24, 2019 1:00am August 15, 2019 3:09pm PO PER PKG DIR metroNIDAZOLE 500 mg oral tablet (20 sources) Nitroimidazole Antimicrobial Start: 02-15-2020 End: 03-17-2020 take 1 tablet by mouth twice daily Metronidazole (Flagyl) 500 mg tablet Discontinued 500 mg PO TWICE A DAY 14 7 February 15, 2020 12:00am March 17, 2020 8:21am Start: 02-05-2019 End: 02-26-2019 take 1 tablet by mouth twice daily Metronidazole (Flagyl) 500 mg tablet Discontinued 500 mg PO TWICE A DAY 14 0 February 05, 2019 12:00am February 26, 2019 1:09pm nortriptyline 10 mg oral capsule (20 sources) Tricyclic Antidepressant Start: 08-15-2019 End: 10-14-2022 take 1 capsule by mouth at bedtime Nortriptyline 10 mg capsule Discontinued 10 mg PO AT BEDTIME 90 2 August 28, 2021 9:46am October 14, 2022 4:06pm Start: 03-30-2019 End: 07-24-2019 take 1 capsule by mouth at bedtime Nortriptyline 10 mg capsule Discontinued 10 mg PO AT BEDTIME 30 March 30, 2019 12:00am July 24, 2019 11:35am predniSONE 10 mg oral tablet (2 sources) Corticosteroid Start: 02-02-2017 End: 03-03-2017 PREDNISONE 10 MG TABS 4 tablets daily for 3 days, then 3 tablets daily for 3 days, then 2 tablets daily for 3 days, then 1 tablet daily for 3 days PREDNISONE [id number] Martin INMAN Right wrist splint for carpal tunnel syndrome (12 sources) Start: 12-02-2022 End: 06-06-2024 Right wrist splint for carpal tunnel syndrome Discontinued 0 .Route .MEDSUPPLY 1 December 02, 2022 12:00am June 06, 2024 11:51am Carpal tunnel syndrome of right wrist Carpal tunnel syndrome, right upper limb Carpal tunnel syndrome (ICD 10: G56.01) As directed Start: 12-02-2022 End: 06-06-2024 Right wrist splint for carpa l tunnel syndrome Discontinued 0 .Route .MEDSUPPLY December 02, 2022 12:00am June 06, 2024 11:51am As directed Start: 12-02-2022 Right wrist sp lint for carpal tunnel syndrome Active 0 .Route .MEDSUPPLY December 01, 2022 11:00pm As directed Start: 12-02-2022 Right wrist sp lint for carpal tunnel syndrome Active 0 .Route .MEDSUPPLY December 02, 2022 12:00am As directed SUMAtriptan 100 mg oral tablet (20 sources) Serotonin-1b and Serotonin-1d Receptor Agonist Start: 12-01-2022 End: 12-25-2024 take 1 tablet by mouth every two hours as needed for headache, then take 2 tablets by mouth once daily as needed for headache Sumatriptan Succinate 100 mg tablet Discontinued 0 PO .COMPLEX 9 5 April 05, 2023 5:07pm July 19, 2023 9:35am Take 1 tablet PO every 2 hours as needed for headache up to 2 tablets/day Start: 09-21-2021 End: 12-01-2022 take 1 tablet by mouth once daily Sumatriptan Succinate 50 mg tablet Discontinued 0 PO .COMPLEX 14 August 06, 2022 11:47am December 01, 2022 4:10pm take 1 tab at onset of headache; if no relief may repeat 1 tab in 2hr; max = 4 tabs/day (24hr) PO Start: 03-30-2019 End: 09-21-2021 take 1 tablet by mouth once daily Sumatriptan Succinate (Imitrex) 25 mg tablet Discontinued 0 PO .COMPLEX 10 3 June 19, 2021 10:34am August 28, 2021 9:47am take 1 tab at onset of headache; if no relief may repeat 1 tab in 2hr; max = 4 tabs/day (24hr) PO tiZANidine 2 mg oral capsule (20 sources) Central alpha-2 Adrenergic Agonist Start: 03-31-2019 End: 12-01-2022 take 1 capsule by mouth twice daily as needed Tizanidine 2 mg capsule Discontinued 2 mg PO TWICE A DAY as needed for muscle spasticity 30 0 February 18, 2021 4:07pm December 01, 2022 4:10pm tobramycin 3 mg/ml ophthalmic solution (16 sources) Aminoglycoside Antibacterial Start: 07-29-2017 End: 08-03-2017 take 0.3 drop(s) into the eye(s) every three hours Tobramycin (Tobrex) 0.3 % drops Discontinued 1 NMA OPHTHALMIC Q3H 5 5 0 July 29, 2017 1:00am August 02, 2017 1:00am August 03, 2017 1:06am Unspecified acute conjunctivitis, unspecified eye Start: 07-29-2017 End: 08-03-2017 take 0.3 drop(s) into the eye(s) every three hours Tobramycin (Tobrex) 0.3 % drops Discontinued 1 DRP OPHTHALMIC Q3H 5 5 July 29, 2017 1:00am August 03, 2017 1:06am topiramate 25 mg oral tablet (12 sources) Start: 12-01-2022 End: 04-29-2023 take 1 tablet by mouth once daily, then take 1 tablet by mouth twice daily Topiramate 25 mg tablet Discontinued 25 mg PO .COMPLEX 60 4 December 01, 2022 12:00am April 29, 2023 9:28am Take 1 tablet orally daily for 1 week then 1 tablet twice daily thereafter Problems Active Problems Problem Classification Problem Date Documented Date Episodic/Chronic Acute bronchitis (16 sources) Acute bronchitis; Translations: [Acute bronchitis, unspecified] Episodic Allergic reactions (17 sources) Contact dermatitis due to plants; Translations: [Allergic condition] Onset: 02-02-2017 02-02-2017 Episodic Anxiety disorders (20 sources) Anxiety; Translations: [Mixed anxiety and depressive disorder] Onset: 03-03-2017 03-03-2017 Chronic Conditions associated with dizziness or vertigo (12 sources) Dizziness; Translations: [Dizziness and giddiness] 12-02-2022 Episodic Deficiency and other anemia (12 sources) Anemia; Translations: [Anemia, unspecified] 12-02-2022 Episodic Deficiency and other anemia (1 source) Anemia, unspecified; Translations: [Anemia, unspecified] 12-01-2022 Episodic Fracture of upper limb (20 sources) Closed fracture of distal end of ulna;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 regular rate Rhythm: regular rhythm Neuro General: patient alert and CN's II-XI intact bilaterally Psych Appearance: grossly normal Mental Status: mental status grossly normal Coding Level of Care Code Off vis,est,level 3 Diagnoses Acute sinusitis J01.90 Assessment and Plan Assessment and Plan (1) Acute sinusitis: Status: Acute Medications: New cephalexin 500 mg PO Q12H 20 caps 0RF 10 days ipratropium bromide administer into each nostril 2 sprays intranasal BID-TID PRN 30 mL 0RF postnasal drainage Plan Keflex and Atrovent as prescribed today. Encouraged to get plenty of rest, drink lots of clear liquids, and use Tylenol or Ibuprofen (unless contraindicated) for fever and comfort. Patient also educated on other symptomatic management techniques. To be seen in 7-10 days if no improvement; sooner if worsening of symptoms. Patient advised of potential red flags and when appropriate to report to the ED. Patient verbalized understanding and agreement with all the above. Clinical (more content not included)... Normal [facility] Thyroid Stim Immunoglobon THY STIM IMMUNO Normal [facility] Comment on above: Result Comment: TEST RESULTS LIMITS Thyroid Stim Immunoglobulin 0.43 IU/L 0.00-0.55 TESTING PERFORMED AT [facility]. ORIGINAL REPORT ON FILE IN LAB CONTAINS ADDITIONAL TEST SITE INFORMATION. Performed By: #### L [id number] #### [facility] [address] [place], [address] Absolute lymphocyte countOrd ered By: Enrico Luo on 10-19-2024 Lymphocytes Auto (Unsp spec) [#/Vol] 1.28 10*3/uL 0.83-4.51 [facility] Absolute neutrophil countOrd ered By: Enrico Luo on 10-19-2024 Neutrophils (Bld) [#/Vol] 5.3 10*3/uL 2.0-7.7 [facility] Automated lymphocyte count a s percentage of total leukocytesOrdered By: Enrico Luo on 10-19-2024 Lymphocytes/100 WBC Auto (Unsp spec) 16.9 % Low 19-41 [facility] Basophil percentageOrdered B y: Enrico Luo on 10-19-2024 Basophils/100 WBC (Bld) 0.9 % 0-1 [facility] CBC W/Diff, Automatedon Absolute Lymph 1.28 X10 3/uL Normal 0.83-4.51 [facility] Comment on above: Performed By: #### L [id number], L506.1001 #### [facility] [address] [place], [address] Absolute Neut 5.3 X10 3/uL Normal 2.0-7.7 [facility] Comment on above: Performed By: #### L [id number], L506.1001 #### [facility] [address] [place], [address] Basophils/100 WBC (Bld) 0.9 % Normal 0-1 [facility] Comment on above: Performed By: #### L [id number], [id number] #### [facility] [address] [place], [address] Eosinophils/100 WBC (Bld) 2.6 % Normal 0-5 [facility] Comment on above: Performed By: #### L [id number], L506.1001 #### [facility] [address] [place], [address] Erythrocyte distribution width (RBC) [Ratio] 11.4 % Low 11.6-14.6 [facility] Comment on above: Performed By: #### L [id number], L506.1001 #### [facility] [address] [place], [address] Hematocrit (Bld) [Volume fraction] 35.3 % Low 37-47 [facility] Comment on above: Performed By: #### L [id number], [id number] #### [facility] [address] [place], [address] Hemoglobin (Bld) [Mass/Vol] 11.7 g/dL Low 12.0-15.0 [facility] Comment on above: Performed By: #### L [id number], L506.1001 #### [facility] [address] [place], [address] IG% 0.300 Normal 0.0-0.9 [facility] Comment on above: Result Comment: IG% - Immature Granulocytes (promyelocytes, myelocytes and metamyelocytes) > 1% indicates that a LEFT SHIFT is Present. Performed By: #### L [id number], L506.1001 #### [facility] [address] [place], [address] Lymphocytes/100 WBC (Bld) 16.9 % Low 19-41 [facility] Comment on above: Performed By: #### L [id number], L506.1001 #### [facility] [address] [place], [address] MCH (RBC) [Entitic mass] 29.6 pg Normal 27.0-32.0 [facility] Comment on above: Performed By: #### L [id number], L506.1001 #### [facility] [address] [place], [address] MCHC (RBC) [Mass/Vol] 33.1 g/dL Normal 32-36 [facility] Comment on above: Performed By: #### L [id number], L506.1001 #### [facility] [address] [place], [address] MCV (RBC) [Entitic vol] 89.4 fL Normal 81-99 [facility] Comment on above: Performed By: #### L [id number], [id number] #### [facility] [address] [place], [address] Monocytes/100 WBC (Bld) 9.6 % Normal 0-10 [facility] Comment on above: Performed By: #### L [id number], [id number] #### [facility] [address] [place], [address] Neutrophils/100 WBC (Bld) 69.7 % Normal 47-70 [facility] Comment on above: Performed By: #### L [id number], [id number] #### [facility] [address] [place], [address] Nucleated RBC (Bld) [#/Vol] 0 10*3/uL Normal 0-5 [facility] Comment on above: Performed By: #### L [id number], [id number] #### [facility] [address] [place], [address] Platelet mean volume (Bld) [Entitic vol] 10.3 fL Normal 6.2-12.0 [facility] Comment on above: Performed By: #### L [id number], L506.1001 #### [facility] [address] [place], [address] Platelets (Bld) [#/Vol] 242 10*3/uL Normal 150-450 [facility] Comment on above: Performed By: #### L [id number], L506.1001 #### [facility] [address] [place], [address] RBC (Bld) [#/Vol] 3.95 10*6/uL Low 4.2-5.4 [facility] Comment on above: Performed By: #### L [id number], L506.1001 #### [facility] [address] [place], [address] RDW SD 37.1 fl Normal 35.1-43.9 [facility] Comment on above: Performed By: #### L [id number], L506.1001 #### [facility] [address] [place], [address] WBC (Bld) [#/Vol] 7.6 10*3/uL Normal 4.4-11.0 [facility] Comment on above: Performed By: #### L [id number], L506.1001 #### [facility] [address] [place], [address] Eosinophil percentageOrdered By: Enrico Luo on 10-19-2024 Eosinophils/100 WBC (Bld) 2.6 % 0-5 [facility] Erythrocyte distribution wid th (RBC) [Ratio]Ordered By: Enrico Luo on 10-19-2024 Erythrocyte distribution width (RBC) [Entitic vol] 37.1 fL 35.1-43.9 [facility] Erythrocyte distribution wid th ratioOrdered By: Enrico Luo on 10-19-2024 Erythrocyte distribution width (RBC) [Ratio] 11.4 % Low 11.6-14.6 [facility] Erythrocyte distribution wid th standard deviationOrdered By: Enrico Luo on 10-19-2024 Erythrocyte distribution width (RBC) [Ratio] 37.1 fl 35.1-43.9 [facility] Free T3on 10-19-2024 Free T3 [Mass/Vol] 6.2 pg/mL High 2.18-3.98 [facility] Comment on above: Performed By: #### L [id number], L506.1001 #### [facility] [address] [place], [address] Free T8Oxxqsio By: Enrico Luo on 10-19-2024 Free T3 [Mass/Vol] 6.2 pg/mL High 2.18-3.98 [facility] Free Triiodothyronine (T3) pg/dL 6.2 pg/mL High 2.18-3.98 [facility] Hematocrit Auto (Bld) [Volum e fraction]Ordered By: Enrico Luo on 10-19-2024 Hematocrit (Bld) [Volume fraction] 35.3 % Low 37-47 [facility] Hemoglobin measurementOrdere d By: Enrico Luo on 10-19-2024 Hemoglobin (Bld) [Mass/Vol] 11.7 g/dL Low 12.0-15.0 [facility] Immature granulocytes/100 WB C Auto (Bld)Ordered By: Enrico Luo on 10-19-2024 Immature granulocytes/100 WBC (Bld) 0.300 % 0.0-0.9 [facility] Comment on above: IG% - Immature Granu locytes (promyelocytes, myelocytes and metamyelocytes) > 1% indicates that a LEFT SHIFT is Present. Lymphocytes Auto (Unsp spec) [#/Vol]Ordered By: Enrico Luo on 10-19-2024 Lymphocytes (Bld) [#/Vol] 1.28 10*3/uL 0.83-4.51 [facility] Lymphocytes/100 WBC Auto (Un sp spec)Ordered By: Enrico Luo on 10-19-2024 Lymphocytes/100 WBC (Bld) 16.9 % Low 19-41 [facility] MCV (mean corpuscular volume ) determinationOrdered By: Enrico Luo on 10-19-2024 MCV (RBC) [Entitic vol] 89.4 fL 81-99 [facility] Mean corpuscular hemoglobin (MCH) determinationOrdered By: Enrico Luo on 10-19-2024 MCH (RBC) [Entitic mass] 29.6 pg 27.0-32.0 [facility] Mean corpuscular hemoglobin concentration (MCHC) determinationOrdered By: Enrico Luo on 10-19-2024 MCHC (RBC) [Mass/Vol] 33.1 g/dL 32-36 [facility] Mean platelet volume determi nationOrdered By: Enrico Luo on 10-19-2024 Platelet mean volume (Bld) [Entitic vol] 10.3 fL 6.2-12.0 [facility] Monocyte percentageOrdered B y: Enrico Luo on 10-19-2024 Monocytes/100 WBC (Bld) 9.6 % 0-10 [facility] Neutrophil percentageOrdered By: Enrico Luo on 10-19-2024 Neutrophils/100 WBC (Bld) 69.7 % 47-70 [facility] Nucleated red blood cell per centageOrdered By: Enrico Luo on 10-19-2024 Nucleated RBC/100 WBC (Bld) [Ratio] 0 % 0-5 [facility] Platelet countOrdered By: Adal Luo on 10-19-2024 Platelets (Bld) [#/Vol] 242 10*3/uL 150-450 [facility] RBC Auto (Bld) [#/Vol]Ordere d By: Enrico Luo on 10-19-2024 RBC (Bld) [#/Vol] 3.95 10*6/uL Low 4.2-5.4 [facility] T4 Free Directon 10-19-2024 T4 FREE DIRECT 1.70 ng/dL High 0.76-1.46 [facility] Comment on above: Performed By: #### L [id number], L506.1001 #### [facility] [address] [place], [address] T4 freeOrdered By: Enrico Luo on 10-19-2024 Free T4 [Mass/Vol] 1.70 ng/dL High 0.76-1.46 [facility] TSH DL <= 0.005 mIU/L QnOrde red By: Enrico Luo on 10-19-2024 Thyroid Stimulating Hormone (TSH) < 0.005 uIU/mL Low 0.300-4.200 [facility] TSH Qn < 0.005 uIU/mL Low 0.300-4.200 [facility] Thyroid Stim Hormone (TSH)on 10-19-2024 TSH Qn m[IU]/L Low 0.300-4.200 [facility] Comment on above: Performed By: #### L [id number], L506.1001 #### [facility] [address] [place], [place], [id number] White blood cell (WBC) count Ordered By: Enrico Luo on 10-19-2024 WBC (Bld) [#/Vol] 7.6 10*3/uL 4.4-11.0 [facility] Endocrinology Visit Reporton 10-12-2024 Endocrinology Visit Report [facility] [address] [place] [address] OFFICE VISIT Date of Service: 10/12/24 MR#: [id number] Acct: [id number] Name: GERTRUDE VELASQUEZ Rep #: [id number] : 1965 Provider: Yee Mae Age/Sex: 58/F Location: [facility] [place] Status: Signed Intake Vital Signs 09/27/24 07:59 10/12/24 07:50 10/12/24 11:21 Height 5 ft 5 ft 5 ft Weight: 129 lb 8 oz BMI 25.2 BP 139/80 H Blood Pressure Location Lt brachial Position Sitting Pulse 95 Pulse Source Monitor Pulse Oximetry (%) 98 Oxygen Delivery Method room air Intake Visit Reasons: Thyroid Chief Complaint: Thyroid Is patient in pain?: No Allergies Sulfa (Sulfonamide Antibiotics) Allergy (Unknown, Verified 11/09/24 09:53) Rash Medications ???Medication ???Instructions ???Recorded ???Confirmed ???Type Lactobacillus acidophilus 1 tab PO DAILY 12/15/17 03/28/25 H istory (Acidophilus chewable tablet) onabotulinumtoxinA 100 unit 200 unit IM ONCE #2 ea 05/29/24 Rx solution for injection (Botox) fluoxetine 20 mg tablet 60 mg (3 x 20 mg) PO DAILY 3 06/0610/12/24 Rx months #270 tabs fremanezumab-vfrm 225 mg/1.5 mL 225 mg (1.5 mL) subcut QMONTH #1.5 09/30/24 10/12/24 Rx subcutaneous auto-injector (Ajovy) mL meloxicam 15 mg tablet 15 mg PO DAILY PRN pain #90 tabs 0 09/30/24 10/12/24 Rx ondansetron HCl 4 mg tablet 4 mg PO TID PRN nausea and 5 10/12/24 Rx vomiting #30 tabs sumatriptan succinate 100 mg tablet See Rx Instructions PO .COMPLEX 09/30/24 10/12/24 Rx #12 tabs methimazole 10 mg tablet 20 mg (2 x 10 mg) PO QDAY #180 tab s 10/12/24 10/12/24 Rx metoprolol succinate 25 mg 25 mg PO QDAY #30 tabs 10/12/24 Rx tablet,extended release 24 hr cephalexin 500 mg capsule 500 mg PO Q12H 10 days #20 caps 11/09/24 Rx ipratropium bromide 21 mcg (0.03 2 spray intranasal BID-TID PRN 11/09/24 Rx %) nasal spray postnasal drainage #30 mL PFSH Medical History (Updated 11/09/24 @ 12:46 by Santiago INMAN, PA) Neck pain Screening for cardiovascular condition Acute bronchitis, unspecified Acute sinusitis, unspecified Influenza A Elective procedure for unacceptable cosmetic appearance Skin laxity Platysmal band of neck Excess skin of neck Facial aging Facial rhytids Anxiety Allergies Health care maintenance Low back pain Osteoarthritis Scoliosis of lumbar spine Segmental and somatic dysfunction of thoracic region Segmental and somatic dysfunction of cervical region Malaise Fatigue Hypersomnia Surgical History History of surgery on arm History of hand surgery History of hysterectomy History of laparoscopy Family History Mother Arthritis Heart disease Grandmother Diabetes Father Heart disease Other Anxiety Depression Hypertension Social History Smoking Status: Never smoker alcohol intake: current alcohol intake frequency: holidays/special occasions only substance use type: does not use caffeine: Yes what type of physical activity do you participate in: running frequency: 5-6 times per week seatbelt use: always do you feel safe at home: Yes additional social history: [employer] Patient works at [employer] Does Not Take Aspirin Does Not Take Ibuprofen HPI HPI Chief Complaint: Thyroid Details: GERTRUDE VELASQUEZ, is a 58 F who presents to the office today for evaluation and management of thyroid disease. Lab: TSH < 0.005 December, TSH 0.92 Free T4 2.5 FT3 11.4 TPO 17 She is feeling terrible. Onset about 2 months. She is feeling anxious, palpitations, poor sleep. ROS Const Constitutional: Positive for fatigue; No weight change or change in appetite Eyes Eyes: No change in vision ENT ENT: Positive for dizziness/vertigo; No difficulty swallowing Cardio Cardiology: Positive for shortness of breath and palpitations; No chest pain at rest or chest pain with exertion Musc Musculoskeletal: No abnormal gait, joint pain, numbness or tingling Neuro Neurology: No abnormal gait, memory loss, numbness or tingling Psych Psychiatric: No change in appetite, No memory loss and No Thoughts of harming yourself/Others Resp Respiratory: No cough, chest congestion or shortness of breath Gastro GI: No abdominal pain, constipation, diarrhea or difficulty swallowing Genitourinary-Female: No burning urination Skin Skin: No itchy eyes or wounds Endo Endocrine: Positive for fatigue; No weight change Aller/Imm Allergy/Immunologic: No itchy eyes Exam Const General: cooperative, healthy appe (more content not included)... Normal [facility] Thyroid Antibodieson 10-12- 025 TG AB < 1.0 Normal 0.0-0.9 [facility] Comment on above: Result Comment: Thyr oglobulin Antibody measured by [email or web address] Methodology It should be noted that the presence of thyroglobulin antibodies may not be pathogenic nor diagnostic, especially at very low levels. The assay software reverse engineer has found that four percent of individuals without evidence of thyroid disease or autoimmunity will have positive TgAb levels up to 4 IU/mL. Performed at: [address] [id number] [place]: Kris Gary PhD, Phone: [phone] Performed By: #### L [id number], L506.1001 #### [facility] [address] [place], [place], [id number] THYR PEROX AB 17 IU/mL Normal 0-34 [facility] Comment on above: Performed By: #### L [id number], L506.1001 #### [facility] [address] [place], [place], [id number] Thyroid stimulating immunogl obulins detectionOrdered By: Markus Wallace on 10-12-2024 Thyroid stimulating immunoglobulins Ql (S) See comment [facility] Comment on above: TEST RESULTS LIMITST hyroid StimImmunoglobulin 0.43 IU/L 0.00-0.55 TESTING PERFORMED AT [facility]. ORIGINAL REPORT ON FILE IN LAB CONTAINS ADDITIONAL TEST SITE INFORMATION. Free T3on 10-11-2024 Free T3 [Mass/Vol] 11.4 pg/mL High 2.18-3.98 [facility] Comment on above: Performed By: #### L [id number], L506.1001 #### [facility] [address] [place], [place], [id number] Free K7Adkyhkv By: Markus moss on 10-11-2024 Free T3 [Mass/Vol] 11.4 pg/mL High 2.18-3.98 [facility] Free Triiodothyronine (T3) pg/dL 11.4 pg/mL High 2.18-3.98 [facility] Serum or plasma thyroperoxid ase antibody assay (units/volume)Ordered By: Markus Wallace on 10-11-2024 TPO Ab Qn 17 [IU]/mL 0-34 [facility] T4 Free Directon 10-11-2024 T4 FREE DIRECT 2.50 ng/dL High 0.76-1.46 [facility] Comment on above: Performed By: #### L [id number], L506.1001 #### [facility] [address] [place], [address] T4 Total, Thyroxinon 025 T4 [Mass/Vol] 11.6 ug/dL Normal 4.8-13.9 [facility] Comment on above: Performed By: #### L [id number], L506.1001 #### [facility] [address] [place], [address] T4 freeOrdered By: Markus moss on 10-11-2024 Free T4 [Mass/Vol] 2.50 ng/dL High 0.76-1.46 [facility] TPO Ab QnOrdered By: Markus Wallace on 10-11-2024 Thyroid Peroxidase Antibodies 17 IU/mL 0-34 [facility] Thyroglobulin Ab serumOrdere d By: Markus Wallace on 10-11-2024 Thyroglobulin Antibody < 1.0 IU/mL 0.0-0.9 [facility] Comment on above: Thyroglobulin Antibo dy measured by Candido CoulterMethodologyIt should be noted that the presence of thyroglobulinantibodies may not be pathogenic nor diagnostic, especiallyat very low levels. The assay software reverse engineer has found thatfour percent of individuals without evidence of thyroiddisease or autoimmunity will have positive TgAb levels upto 4 IU/mL.Performed at: [facility] [employer] [id number] Director: Kris Gary PhD, Phone: [phone] ThyroxineOrdered By: Markus Wallace on 10-11-2024 T4 [Mass/Vol] 11.6 ug/dL 4.8-13.9 [facility] Magnetic resonance imaging r eportOrdered By: Thomas Lnin on 10-10-2024 Study report [facility] [address] [place] [address] Spine Cervical W/WO Contrast MR#: [id number] Acct: [id number] Name: GERTRUDE VELASQUEZ Rep #: [id number] : 1965 F 58 From: Reny Linn MD PCP: Dr. Justice Knight MD Status: R EG CLI Study:Spine Cervical W/WO Contrast Date of E xam: 10/09/24 Exam# [id number] Ordering Dr: Wes Zaragoza MD EXAM: MRI cervical spine with and without contrast CLINICAL HISTORY: Cervicalgia, hyperreflexia, gait imbalance and neck pain COMPARISON: Cervical spine radiograph 12/22/2022 TECHNIQUE: Multiplanar multisequence MRI of the cervical spine with and without contrast. IV Clariscan was administered. FINDINGS: The vertebral body heights and alignment are maintained. Grade 1 anterolisthesis of C2 on C3. No evidence of compression fracture. The bone marrow signal is unremarkable. Cervicomedullary junction is unremarkable. Cervical cord is normal in caliber and signal intensity. No abnormal cord signal. No suspicious parenchymal or leptomeningeal enhancement. Prevertebral soft tissues are unremarkable Disc Spaces: C2-3: No significant disc contour abnormality. No significant spinal canal stenosis or foraminal stenosis. C3-4: Tiny disc osteophyte complex and mild uncinate hypertrophy with flatteningof the ventral thecal sac. No significant canal stenosis or neural foraminal narrowing.. C4-5: Disc osteophyte complex, uncinate hypertrophy and facet degenerative changes with moderate canal stenosis. Ceegi-gchpnuz-duxs-left moderate neural foraminal narrowing.. C5-6: Small disc osteophyte complex and mild uncinate hypertrophy without significant canal stenosis or neural foraminal narrowing. C6-7: Mmnv-qcfggss-weug-right uncinate hypertrophy and mild disc osteophyte complex. No significant canal stenosis. Moderate left and mild right neural foraminal narrowing. C7-T1: No significant disc contour abnormality. No significant spinal canal stenosis or foraminal stenosis. MRI/Spine Cervical W/WO Contrast IMPRESSION: 1. No acute findings of the cervical spine. 2. No cord signal abnormality, abnormal parenchymal or leptomeningeal enhancement. 3. Multilevel degenerative changes, most prominent at C4-C5 with up to moderate canal stenosis and neural foraminal narrowing. Reading Location: [facility] CC: Dr. Justice Knight MD; Dr. Wes Zaragoza MD ~ Belt Maker: Signed [facility] L506.1001on 10-09-2024 Vitamin D 25-OH 51.3 ng/mL Normal 30-100 [facility] Comment on above: Result Comment: Catalina min D Status Deficiency: <20 ng/mL (50nmol/L) Insufficiency: 20-30 ng/mL (50-75 nmol/L) Sufficiency: 30-100 ng/mL (75-250 nmol/L) Toxicity: >100 ng/mL (>250 nmol/L) Performed By: #### L [id number], L506.1001 #### [facility] [address] [place], [address] Spine Cervical W/WO Contrast on 10-09-2024 Spine Cervical W/WO Contrast [facility] [address] [place] [address] Spine Cervical W/WO Contrast MR#: [id number] Acct: [id number] Name: GERTRUDE VELASQUEZ Rep #: [id number] : 1965 F 58 From: Thomas rueda MD PCP: Dr. Justice Knight MD Status: DEP CLI Study: Spine Cervical W/WO Contrast Date of Exam: Exam# [id number] Ordering Dr: Wes Zaragoza MD ADDENDUM by Dr. Thomas Linn MD on 10/19/24 at 0059 11 cc IV Clariscan was administered. Reading Location: [facility] 10/19/24 0100 Date cc: Dr. Justice Knight MD; Dr. Wes Zaragoza MD * Signed EXAM: MRI cervical spine with and without contrast CLINICAL HISTORY: Cervicalgia, hyperreflexia, gait imbalance and neck pain COMPARISON: Cervical spine radiograph 12/22/2022 TECHNIQUE: Multiplanar multisequence MRI of the cervical spine with and without contrast. IV Clariscan was administered. FINDINGS: The vertebral body heights and alignment are maintained. Grade 1 anterolisthesis of C2 on C3. No evidence of compression fracture. The bone marrow signal is unremarkable. Cervicomedullary junction is unremarkable. Cervical cord is normal in caliber and signal intensity. No abnormal cord signal. No suspicious parenchymal or leptomeningeal enhancement. Prevertebral soft tissues are unremarkable Disc Spaces: C2-3: No significant disc contour abnormality. No significant spinal canal stenosis or foraminal stenosis. C3-4: Tiny disc osteophyte complex and mild uncinate hypertrophy with flattening of the ventral thecal sac. No significant canal stenosis or neural foraminal narrowing.. C4-5: Disc osteophyte complex, uncinate hypertrophy and facet degenerative changes with moderate canal stenosis. Xreic-eltnqyh-ihdp-left moderate neural foraminal narrowing.. C5-6: Small disc osteophyte complex and mild uncinate hypertrophy without significant canal stenosis or neural foraminal narrowing. C6-7: Hnjc-rdyhfca-fsmq-right uncinate hypertrophy and mild disc osteophyte complex. No significant canal stenosis. Moderate left and mild right neural foraminal narrowing. C7-T1: No significant disc contour abnormality. No significant spinal canal stenosis or foraminal stenosis. MRI/Spine Cervical W/WO Contrast IMPRESSION: 1. No acute findings of the cervical spine. 2. No cord signal abnormality, abnormal parenchymal or leptomeningeal enhancement. 3. Multilevel degenerative changes, most prominent at C4-C5 with up to moderate canal stenosis and neural foraminal narrowing. Reading Location: [facility] CC: Dr. Justice Knight MD; Dr. Wes Zaragoza MD Belt Maker: Signed Normal [facility] TSH DL <= 0.005 mIU/L QnOrde red By: Markus Wallace on 10-09-2024 Thyroid Stimulating Hormone (TSH) < 0.005 uIU/mL Low 0.300-4.200 [facility] TSH Qn < 0.005 uIU/mL Low 0.300-4.200 [facility] Thyroid Stim Hormone (TSH)on 10-09-2024 TSH Qn m[IU]/L Low 0.300-4.200 [facility] Comment on above: Performed By: #### L 501.9520, L506.1001 #### [facility] [address] [place], [place], [address] Vitamin D, 25-hydroxyOrdered By: Markus Wallace on 10-09-2024 Vitamin D 25-Hydroxy 51.3 ng/mL 30-100 [facility] Comment on above: Vitamin D StatusDefi ciency: <20 ng/mL (50nmol/L)Insufficiency: 20-30 ng/mL (50-75 nmol/L)Sufficiency: 30-100 ng/mL (75-250 nmol/L)Toxicity: >100 ng/mL (>250 nmol/L) Neurology Visit Reporton Neurology Visit Report [facility] [address] [facility] [place], [place] [address] OFFICE VISIT Date of Service: 10/03/24 MR#: [id number] Acct: [id number] Name: GERTRUDE VELASQUEZ Rep #: [id number] : 1965 Provider: JARRETT baez Age/Sex: 58/F Location: [facility]. Status: Signed Office Procedures Neurology POC Chemodenervation: 5 or More Details:: Patient presents for Botox injections for treatment of migrainous headaches. Her last Botox injections in April 2024 were of benefit in reducing her headache frequency. She had an office visit with Dr. Zaragoza on 09/30/2024 and she wished to pursue further Botox injections for treatment of her chronic migraine headaches. The procedure was proctored by Dr. Zaragoza. A accounting representative from [employer] was also present. Physical exam: Neuro: The patient is awake and alert and responds appropriately. Written informed consent was obtained. 200 units of Botox were used of which 175 units were injected. The additional 25 units were disposed of. 100 unit Botox vial #1: Lot number [id number], expiration 10/16/2026 100 unit Botox vial #2: Lot number [id number], expiration 10/16/2026 The medication administered is Botox (onabotulinumtoxinA) 100 units/vial. Two vials were used. Box Car Bracer is [employer]. Botox [facility] number is [id number]. The Botox was diluted with 0.9% sodium chloride preservative-free sterile diluent to a concentration of 50 units/mL. The various injection sites were prepped with alcohol swabs. Stadium Attendant muscles:5 units administered at each site x2 sites Procerus muscle:5 units administered x1 site Frontalis muscle:5 units administered at each site x4 sites Right temporalis muscle:5 units administered at sites 1 and 4 and 10 units administered at sites 2 and 3 Left temporalis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 14:00 09/03/24 14:09 Temperature 98.3 F Temperature Source Pulse Rate 89 Respiratory Rate 16 Blood Pressure 124/73 H 124/73 H Blood Pressure Mean 90 90 Pulse Ox 97 96 96 Oxygen Delivery Method Positive well nourished, well developed and no apparent distress General Appearance ED: well developed HEENT Reports normocephalic and head/scalp atraumatic Mouth ED: Yes moist mucous membranes normal Eyes (more content not included)... Normal [facility] Eosinophil percentageOrdered By: Birgit So on 09-03-2024 Eosinophils/100 WBC (Bld) 4.7 % 0-5 [facility] Erythrocyte distribution wid th ratioOrdered By: Birgit So on 09-03-2024 Erythrocyte distribution width (RBC) [Ratio] 11.7 % 11.6-14.6 [facility] Erythrocyte distribution wid th standard deviationOrdered By: Birgit So on 09-03-2024 Erythrocyte distribution width (RBC) [Entitic vol] 37.5 fL 35.1-43.9 [facility] Erythrocyte distribution width (RBC) [Ratio] 37.5 fl 35.1-43.9 [facility] Estimated glomerular filtrat ion rate (GFR) AmericanOrdered By: Birgit So on 09-03-2024 Estimated GFR (MDRD) Amer 135 mL/min >60 [facility] Comment on above: GFR Calc Estimation of creatinine dionicio aranceOrdered By: Birgit So on 09-03-2024 Estimated Creatinine Clearance Calc 87.03 ml/min [facility] Glomerular filtration rate ( GFR) estimationOrdered By: Birgit So on 09-03-2024 Estimated GFR (MDRD) Non-Af Amer 112 mL/min >60 [facility] Comment on above: Non- GFR Calc GFR/1.73 sq M.predicted among non-blacks MDRD (S/P/Bld) [Vol rate/Area] 112 mL/min/{1.73_m2} >60 [facility] Comment on above: Non- GFR Calc Glucose measurementOrdered B y: Birgit So on 09-03-2024 Glucose [Mass/Vol] 98 mg/dL 74-106 [facility] Hematocrit Auto (Bld) [Volum e fraction]Ordered By: Birgit So on 09-03-2024 Hematocrit (Bld) [Volume fraction] 34.9 % Low 37-47 [facility] Hemoglobin measurementOrdere d By: Birgit So on 09-03-2024 Hemoglobin (Bld) [Mass/Vol] 11.8 g/dL Low 12.0-15.0 [facility] Immature granulocytes/100 WB C Auto (Bld)Ordered By: Birgit So on 09-03-2024 Immature granulocytes/100 WBC (Bld) 0.400 % 0.0-0.9 [facility] Comment on above: IG% - Immature Granu locytes (promyelocytes, myelocytes and metamyelocytes) > 1% indicates that a LEFT SHIFT is Present. L501.4020on 09-03-2024 TROPONIN-I HS 5 pg/mL Normal 3.0-54.0 [facility] Comment on above: Result Comment: Plea se Note: New Test Units and Gender Specific Reference Ranges. For more information see Policy Stat Procedure [facility] High Sensitivity Troponin (TNIH) and attachments. Performed By: #### L 501.4020 #### [facility] [address] [facility] [place], [address] L501.5425on 09-03-2024 TROPONIN-I HS 3 pg/mL Normal 3.0-54.0 [facility] Comment on above: Order Comment: 1 Y Result Comment: Plea se Note: New Test Units and Gender Specific Reference Ranges. For more information see Policy Stat Procedure [facility] High Sensitivity Troponin (TNIH) and attachments. Performed By: #### L 500.2500, L501.5425, L100.0100 #### [facility] [address] [place], [address] Lymphocytes Auto (Unsp spec) [#/Vol]Ordered By: Birgit So on 09-03-2024 Lymphocytes (Bld) [#/Vol] 1.53 10*3/uL 0.83-4.51 [facility] Lymphocytes/100 WBC Auto (Un sp spec)Ordered By: Birgit So on 09-03-2024 Lymphocytes/100 WBC (Bld) 31.1 % 19-41 [facility] MCV (mean corpuscular volume ) determinationOrdered By: Birgit So on 09-03-2024 MCV (RBC) [Entitic vol] 89.3 fL 81-99 [facility] Mean corpuscular hemoglobin (MCH) determinationOrdered By: Birgit So on 09-03-2024 MCH (RBC) [Entitic mass] 30.2 pg 27.0-32.0 [facility] Mean corpuscular hemoglobin concentration (MCHC) determinationOrdered By: Birgit So on 09-03-2024 MCHC (RBC) [Mass/Vol] 33.8 g/dL 32-36 [facility] Mean platelet volume determi nationOrdered By: Birgit So on 09-03-2024 Platelet mean volume (Bld) [Entitic vol] 10.0 fL 6.2-12.0 [facility] Monocyte percentageOrdered B y: Birgit So on 09-03-2024 Monocytes/100 WBC (Bld) 9.3 % 0-10 [facility] Neutrophil percentageOrdered By: Birgit So on 09-03-2024 Neutrophils/100 WBC (Bld) 52.7 % 47-70 [facility] Nucleated red blood cell per centageOrdered By: Birgit So on 09-03-2024 Nucleated RBC/100 WBC (Bld) [Ratio] 0 % 0-5 [facility] Platelet countOrdered By: Dejah So on 09-03-2024 Platelets (Bld) [#/Vol] 238 10*3/uL 150-450 [facility] Potassium measurementOrdered By: Birgit So on 09-03-2024 Potassium [Moles/Vol] 3.6 mmol/L 3.5-5.1 [facility] RBC Auto (Bld) [#/Vol]Ordere d By: Birgit So on 09-03-2024 RBC (Bld) [#/Vol] 3.91 10*6/uL Low 4.2-5.4 [facility] Serum anion gap measurementO rdered By: Birgit So on 09-03-2024 Anion gap [Moles/Vol] 7 mmol/L - [facility] Serum or plasma calcium laith urement (mass/volume)Ordered By: Birgit So on 09-03-2024 Calcium [Mass/Vol] 9.4 mg/dL 8.5-10.1 [facility] Serum or plasma creatinine m easurement (mass/volume)Ordered By: Birgit So on 09-03-2024 Creatinine [Mass/Vol] 0.59 mg/dL 0.55-1.02 [facility] Comment on above: The validity of the calculated GFR & GFRAA in patients over 70 years has not been determined. Clinical correlation is essential. Serum or plasma urea nitroge n measurement (mass/volume)Ordered By: Birgit So on 09-03-2024 Urea nitrogen [Mass/Vol] 14 mg/dL 02-01 [facility] Sodium levelOrdered By: Maykel So on 09-03-2024 Sodium [Moles/Vol] 139 mmol/L 136-145 [facility] Troponin IOrdered By: Alejandra So on 09-03-2024 Troponin I 5 pg/mL 3.0-54.0 [facility] Comment on above: Please Note: New Olya t Units and Gender Specific Reference Ranges. For more information see Policy Stat Procedure [facility] High Sensitivity Troponin (TNIH) and attachments. Troponin I High Sensitivity 5 pg/mL 3.0-54.0 [facility] Comment on above: Please Note: New Olya t Units and Gender Specific Reference Ranges. For more information see Policy Stat Procedure [facility] High Sensitivity Troponin (TNIH) and attachments. White blood cell (WBC) count Ordered By: Birgit So on 09-03-2024 WBC (Bld) [#/Vol] 4.9 10*3/uL 4.4-11.0 [facility] Dexa Bone Density Studyon Dexa Bone Density Study [facility] [address] [place], [place] [address] Dexa Bone Density Study MR#: [id number] Acct: [id number] Name: EVATHOMAS Rep #: [id number] : 1965 F 58 From: Filipe gerber MD PCP: Dr. Justice Knight MD Status: REG CLI Study: Dexa Bone Density Study Date of Exam: 08/21/24 Exam# [id number] Ordering Dr: Justice Knight MD PROCEDURE: DEXA BONE DENSITY STUDY REASON FOR EXAM: F, age 58 y/o . Postmenopausal. TECHNIQUE: DEXA scan of the lumbar spine and both hips. COMPARISON: None. FINDINGS: Lumbar Spine (L1-L4): g/cm2 (0.827)/T-score (-2.0)/Z-score (-0.8) findings are suggestive of osteopenia with a moderate fracture risk. Left Femur Total: g/cm2 (0.765)/T-score (-1.5)/Z-score (-0.7) Left Femoral Neck: g/cm2 (0.630)/T-score (-2.0)/Z-score (-0.8) Right Femur Total: g/cm2 (0.810)/T-score (-1.1)/Z-score (-0.3) Right Femoral Neck: g/cm2 (0.716)/T-score (-1.2)/Z-score (-0.1) BD/Dexa Bone Density Study IMPRESSION: OSTEOPENIA. Reading Location: [place] [address] CC: Dr. Justice Knight MD Belt Maker: Signed Normal [facility] SCRN MAMM (CAD)W/MONIQUE BILATo n 08-21-2024 SCRN MAMM (CAD)W/MONIQUE BILAT [facility] [address] [place] [address] SCRN MAMM (CAD)W/MONIQUE BILAT MR#: [id number] Acct: [id number] Name: GERTRUDE VELASQUEZ Rep #: [id number] : 1965 F 58 From: Filipe gerber MD PCP: Dr. Justice Knight MD Status: REG CLI Study: SCRN MAMM (CAD)W/MONIQUE BILAT Date of Exam: 11/09 Exam# [id number] Ordering Dr: Justice Knight MD PROCEDURE: SCRN MAMM (CAD)W/MONIQUE BILAT REASON FOR EXAM: F, Age 58 y/o, aunt with breast cancer. Routine annual mammographic follow-up. June 03, 2023. TECHNIQUE: Bilateral screening digital breast tomosynthesis with 2D and 3D images. Computer aided detection. COMPARISON: Prior exam(s) dating back to June 03, 2023.. FINDINGS: The breasts are heterogeneously dense which may obscure small masses. Stable bilateral benign- appearing axillary lymph nodes. No suspicious masses, areas of developing architectural distortion, or suspicious calcifications. There has been no change since prior study. BI/SCRN MAMM (CAD)W/MONIQUE BILAT IMPRESSION: BI-RADS 2: BENIGN. RECOMMEND ANNUAL MAMMOGRAPHIC SCREENING. Follow-up code: Routine Follow-up The patient will be notified of the results by letter. Reading Location: [place] [address] CC: Dr. Justice Knight MD Belt Maker: Signed Normal [facility] Absolute neutrophil countOrd ered By: Justice Knight on 06-21-2024 Neutrophils (Bld) [#/Vol] 3.1 10*3/uL 2.0-7.7 [facility] Albumin to globulin ratioOrd ered By: Justice Knight on 06-21-2024 Albumin/Globulin [Mass ratio] 1.1 {ratio} 0.9-2.4 [facility] Basophil percentageOrdered B y: Justice Knight on 06-21-2024 Basophils/100 WBC (Bld) 1.9 % High 0-1 [facility] Bilirubin, totalOrdered By: Justice Knight on 06-21-2024 Bilirubin [Mass/Vol] 0.40 mg/dL 0.20-1.00 [facility] Comment on above: For patients on eltr ombopag therapy, use of Dimension [facility] TBIL is not recommended. Blood urea nitrogen (BUN)/cr eatinine ratioOrdered By: Justice Knight on 06-21-2024 Urea nitrogen/Creatinine [Mass ratio] 18.9 mg/mg 10-20 [facility] CBC W/Diff, Automatedon Absolute Lymph 1.99 X10 3/uL Normal 0.83-4.51 [facility] Comment on above: Performed By: #### L 501.9520, L506.1001 #### [facility] [address] [place], [address] Absolute Neut 3.1 X10 3/uL Normal 2.0-7.7 [facility] Comment on above: Performed By: #### L 501.9520, L506.1001 #### [facility] [address] [place], [address] Basophils/100 WBC (Bld) 1.9 % High 0-1 [facility] Comment on above: Performed By: #### L 501.9520, L506.1001 #### [facility] [address] [place], [address] Eosinophils/100 WBC (Bld) 3.4 % Normal 0-5 [facility] Comment on above: Performed By: #### L 501.9520, L506.1001 #### [facility] [address] [place], [address] Erythrocyte distribution width (RBC) [Ratio] 12.4 % Normal 11.6-14.6 [facility] Comment on above: Performed By: #### L 501.9520, L506.1001 #### [facility] [address] [place], [address] Hematocrit (Bld) [Volume fraction] 39.1 % Normal 37-47 [facility] Comment on above: Performed By: #### L 501.9520, L506.1001 #### [facility] [address] [place], [address] Hemoglobin (Bld) [Mass/Vol] 12.6 g/dL Normal 12.0-15.0 [facility] Comment on above: Performed By: #### L 501.9520, L506.1001 #### [facility] [address] [place], [address] IG% 0.300 Normal 0.0-0.9 [facility] Comment on above: Result Comment: IG% - Immature Granulocytes (promyelocytes, myelocytes and metamyelocytes) > 1% indicates that a LEFT SHIFT is Present. Performed By: #### L 501.9520, L506.1001 #### [facility] [address] [place], [address] Lymphocytes/100 WBC (Bld) 34.0 % Normal 19-41 [facility] Comment on above: Performed By: #### L 501.9520, L506.1001 #### [facility] [address] [place], [address] MCH (RBC) [Entitic mass] 29.9 pg Normal 27.0-32.0 [facility] Comment on above: Performed By: #### L 501.9520, L506.1001 #### [facility] [address] [place], [address] MCHC (RBC) [Mass/Vol] 32.2 g/dL Normal 32-36 [facility] Comment on above: Performed By: #### L 501.9520, L506.1001 #### [facility] [address] [place], [address] MCV (RBC) [Entitic vol] 92.9 fL Normal 81-99 [facility] Comment on above: Performed By: #### L 501.9520, L506.1001 #### [facility] [address] [place], [address] Monocytes/100 WBC (Bld) 8.2 % Normal 0-10 [facility] Comment on above: Performed By: #### L 501.9520, L506.1001 #### [facility] [address] [place], [address] Neutrophils/100 WBC (Bld) 52.2 % Normal 47-70 [facility] Comment on above: Performed By: #### L 501.9520, L506.1001 #### [facility] [address] [place], [address] Nucleated RBC (Bld) [#/Vol] 0 10*3/uL Normal 0-5 [facility] Comment on above: Performed By: #### L 501.9520, L506.1001 #### [facility] [address] [place], [address] Platelet mean volume (Bld) [Entitic vol] 11.0 fL Normal 6.2-12.0 [facility] Comment on above: Performed By: #### L 501.9520, L506.1001 #### [facility] [address] [place], [address] Platelets (Bld) [#/Vol] 286 10*3/uL Normal 150-450 [facility] Comment on above: Performed By: #### L 501.9520, L506.1001 #### [facility] [address] [place], [address] RBC (Bld) [#/Vol] 4.21 10*6/uL Normal 4.2-5.4 [facility] Comment on above: Performed By: #### L 501.9520, L506.1001 #### [facility] [address] [place], [address] RDW SD 42.6 fl Normal 35.1-43.9 [facility] Comment on above: Performed By: #### L 501.9520, L506.1001 #### [facility] [address] [place], [address] WBC (Bld) [#/Vol] 5.9 10*3/uL Normal 4.4-11.0 [facility] Comment on above: Performed By: #### L 501.9520, L506.1001 #### [facility] [address] [place], [address] Carbon dioxide measurementOr dered By: Justice Knight on 06-21-2024 CO2 [Moles/Vol] 26.0 mmol/L 21.0-32.0 [facility] Chloride measurementOrdered By: Justice Knight on 06-21-2024 Chloride [Moles/Vol] 105 mmol/L 98-107 [facility] Comprehensive Metabolic Prof ilon 06-21-2024 Albumin [Mass/Vol] 4.1 g/dL Normal 3.2-5.0 [facility] Comment on above: Performed By: #### L 501.9520, L506.1001 #### [facility] [address] [place], [address] Albumin/Globulin [Mass ratio] 1.1 {ratio} Normal 0.9-2.4 [facility] Comment on above: Performed By: #### L 501.9520, L506.1001 #### [facility] [address] [place], [address] ALK P 77 U/L Normal 45-117 [facility] Comment on above: Performed By: #### L 501.9520, L506.1001 #### [facility] [address] [place], [address] ALT [Catalytic activity/Vol] 23 U/L Normal 13-56 [facility] Comment on above: Performed By: #### L 501.9520, L506.1001 #### [facility] [address] [place], [address] AST [Catalytic activity/Vol] 20 U/L Normal 15-37 [facility] Comment on above: Performed By: #### L 501.9520, L506.1001 #### [facility] [address] [place], [address] Bilirubin [Mass/Vol] 0.40 mg/dL Normal 0.20-1.00 [facility] Comment on above: Result Comment: For patients on eltrombopag therapy, use of Dimension Mcclure TBIL is not recommended. Performed By: #### L 501.9520, L506.1001 #### [facility] [address] [place], [address] BUN/CRE 18.9 RATIO Normal 10-20 [facility] Comment on above: Performed By: #### L 501.9520, L506.1001 #### [facility] [address] [place], [address] CA,Total 9.7 mg/dL Normal 8.5-10.1 [facility] Comment on above: Performed By: #### L 501.9520, L506.1001 #### [facility] [address] [place], [address] Chloride [Moles/Vol] 105 mmol/L Normal 98-107 [facility] Comment on above: Performed By: #### L 501.9520, L506.1001 #### [facility] [address] [place], [address] CO2 [Moles/Vol] 26.0 mmol/L Normal 21.0-32.0 [facility] Comment on above: Performed By: #### L 501.9520, L506.1001 #### [facility] [address] [place], [address] Creatinine [Mass/Vol] 0.69 mg/dL Normal 0.55-1.02 [facility] Comment on above: Result Comment: The validity of the calculated GFR GFRAA in patients over 70 years has not been determined. Clinical correlation is essential. Performed By: #### L 501.9520, L506.1001 #### [facility] [address] [place], [address] EST GFR - AA 114 mL/min Normal >60 [facility] Comment on above: Result Comment: Afri can [place] GFR Calc Performed By: #### L 501.9520, L506.1001 #### [facility] [address] [place], [address] GAP 7 Normal 5-15 [facility] Comment on above: Performed By: #### L 501.9520, L506.1001 #### [facility] [address] [place], [address] GFR/1.73 sq M.predicted among non-blacks MDRD (S/P/Bld) [Vol rate/Area] 94 mL/min/{1.73_m2} Normal >60 [facility] Comment on above: Result Comment: Non- GFR Calc Performed By: #### L 501.9520, L506.1001 #### [facility] [address] [place], [address] Globulin (S) [Mass/Vol] 3.7 g/dL Normal 2.2-4.2 [facility] Comment on above: Performed By: #### L 501.9520, L506.1001 #### [facility] [address] [place], [address] Glucose [Mass/Vol] 88 mg/dL Normal 74-106 [facility] Comment on above: Performed By: #### L 501.9520, L506.1001 #### [facility] [address] [place], [address] Potassium [Moles/Vol] 4.4 mmol/L Normal 3.5-5.1 [facility] Comment on above: Performed By: #### L 501.9520, L506.1001 #### [facility] [address] [place], [address] Sodium [Moles/Vol] 138 mmol/L Normal 136-145 [facility] Comment on above: Performed By: #### L 501.9520, L506.1001 #### [facility] [address] [place], [address] T PROT 7.8 g/dL Normal 6.4-8.2 [facility] Comment on above: Performed By: #### L 501.9520, L506.1001 #### [facility] [address] [place], [address] Urea nitrogen [Mass/Vol] 13 mg/dL Normal 7-18 [facility] Comment on above: Performed By: #### L 501.9520, L506.1001 #### [facility] [address] [place], [address] Eosinophil percentageOrdered By: Justice Knight on 06-21-2024 Eosinophils/100 WBC (Bld) 3.4 % 0-5 [facility] Erythrocyte distribution wid th ratioOrdered By: Justice Knight on 06-21-2024 Erythrocyte distribution width (RBC) [Ratio] 12.4 % 11.6-14.6 [facility] Erythrocyte distribution wid th standard deviationOrdered By: Justice Knight on 06-21-2024 Erythrocyte distribution width (RBC) [Entitic vol] 42.6 fL 35.1-43.9 [facility] Estimated glomerular filtrat ion rate (GFR) AmericanOrdered By: Justice Knight on 06-21-2024 Estimated GFR (MDRD) Amer 114 mL/min >60 [facility] Comment on above: GFR Calc Glomerular filtration rate ( GFR) estimationOrdered By: Justice Knight on 06-21-2024 Estimated GFR (MDRD) Non-Af Amer 94 mL/min >60 [facility] Comment on above: Non- GFR Calc Glucose measurementOrdered B y: Justice Knight on 06-21-2024 Glucose [Mass/Vol] 88 mg/dL 74-106 [facility] Hematocrit Auto (Bld) [Volum e fraction]Ordered By: Justice Knight on 06-21-2024 Hematocrit (Bld) [Volume fraction] 39.1 % 37-47 [facility] Hemoglobin measurementOrdere d By: Justice Knight on 06-21-2024 Hemoglobin (Bld) [Mass/Vol] 12.6 g/dL 12.0-15.0 [facility] High density lipoprotein (HD L) measurementOrdered By: Justice Knight on 06-21-2024 Cholesterol in HDL [Mass/Vol] 108 mg/dL >40 [facility] Comment on above: The drugs N-Acetylcy steine and Metamizole may falsely depress this assay. Reference Range HDL <40 mg/dL Low HDL Cholesterol HDL >or= 60 mg/dL High HDL Cholesterol Immature granulocytes/100 WB C Auto (Bld)Ordered By: Justice Knight on 06-21-2024 Immature granulocytes/100 WBC (Bld) 0.300 % 0.0-0.9 [facility] Comment on above: IG% - Immature Granu locytes (promyelocytes, myelocytes and metamyelocytes) > 1% indicates that a LEFT SHIFT is Present. Laboratory - Chemistry and C hemistry - challengeOrdered By: Justice Knight on 06-21-2024 AST [Catalytic activity/Vol] 20 U/L 15-37 [facility] Lipid Profileon 06-21-2024 Cholesterol [Mass/Vol] 245 mg/dL High 200 [facility] Comment on above: Result Comment: <200 mg/dL Desirable 200-240 mg/dL Borderline >240 mg/dL High Risk Performed By: #### L 501.9520, L506.1001 #### [facility] [address] [place], [address] Cholesterol in HDL [Mass/Vol] 108 mg/dL Normal [facility] Comment on above: Result Comment: The drugs N-Acetylcysteine and Metamizole may falsely depress this assay. Reference Range HDL <40 mg/dL Low HDL Cholesterol HDL >or= 60 mg/dL High HDL Cholesterol Performed By: #### L 501.9520, L506.1001 #### [facility] [address] [place], [address] Cholesterol in LDL [Mass/Vol] 114 mg/dL Normal 0-130 [facility] Comment on above: Performed By: #### L 501.9520, L506.1001 #### [facility] [address] [place], [address] Cholesterol in VLDL [Mass/Vol] 23 mg/dL Normal 5-40 [facility] Comment on above: Performed By: #### L 501.9520, L506.1001 #### [facility] [address] [place], [address] Triglyceride [Mass/Vol] 113 mg/dL Normal [facility] Comment on above: Result Comment: The drugs N-Acetylcysteine and Metamizole may falsely depress this assay. Serum Triglycerides Reference Interval Normal <150 mg/dL Borderline high 150 - 199 mg/dL High 200 - 499 mg/dL Very High > or = 500 mg/dL Performed By: #### L 501.9520, L506.1001 #### [facility] [address] [place], [address] Low density lipoprotein (LDL ) cholesterol measurementOrdered By: Justice Knight on 06-21-2024 Cholesterol in LDL [Mass/Vol] 114 mg/dL 0-130 [facility] Lymphocytes Auto (Unsp spec) [#/Vol]Ordered By: Justice Knight on 06-21-2024 Lymphocytes (Bld) [#/Vol] 1.99 10*3/uL 0.83-4.51 [facility] Lymphocytes/100 WBC Auto (Un sp spec)Ordered By: Justice Knight on 06-21-2024 Lymphocytes/100 WBC (Bld) 34.0 % 19-41 [facility] MCV (mean corpuscular volume ) determinationOrdered By: Justice Knight on 06-21-2024 MCV (RBC) [Entitic vol] 92.9 fL 81-99 [facility] Mean corpuscular hemoglobin (MCH) determinationOrdered By: Justice Knight on 06-21-2024 MCH (RBC) [Entitic mass] 29.9 pg 27.0-32.0 [facility] Mean corpuscular hemoglobin concentration (MCHC) determinationOrdered By: Justice Knight on 06-21-2024 MCHC (RBC) [Mass/Vol] 32.2 g/dL 32-36 [facility] Mean platelet volume determi nationOrdered By: Justice Knight on 06-21-2024 Platelet mean volume (Bld) [Entitic vol] 11.0 fL 6.2-12.0 [facility] Monocyte percentageOrdered B y: Justice Knight on 06-21-2024 Monocytes/100 WBC (Bld) 8.2 % 0-10 [facility] Neutrophil percentageOrdered By: Justice Knight on 06-21-2024 Neutrophils/100 WBC (Bld) 52.2 % 47-70 [facility] Nucleated red blood cell per centageOrdered By: Justice Knight on 06-21-2024 Nucleated RBC/100 WBC (Bld) [Ratio] 0 % 0-5 [facility] Platelet countOrdered By: Rebecca Knight on 06-21-2024 Platelets (Bld) [#/Vol] 286 10*3/uL 150-450 [facility] Potassium measurementOrdered By: Justice Knight on 06-21-2024 Potassium [Moles/Vol] 4.4 mmol/L 3.5-5.1 [facility] RBC Auto (Bld) [#/Vol]Ordere d By: Justice Knight on 06-21-2024 RBC (Bld) [#/Vol] 4.21 10*6/uL 4.2-5.4 [facility] Serum anion gap measurementO rdered By: Justice Knight on 06-21-2024 Anion gap [Moles/Vol] 7 mmol/L 5-15 [facility] Serum globulin measurementOr dered By: Justice Knight on 06-21-2024 Globulin (S) [Mass/Vol] 3.7 g/dL 2.2-4.2 [facility] Serum or plasma alanine vivas otransferase (ALT) measurementOrdered By: Justice Knight on 06-21-2024 ALT [Catalytic activity/Vol] 23 U/L 13-56 [facility] Serum or plasma albumin laith urement (mass/volume)Ordered By: Justice Knight on 06-21-2024 Albumin [Mass/Vol] 4.1 g/dL 3.2-5.0 [facility] Serum or plasma alkaline farzana sphatase measurementOrdered By: Justice Knight on 06-21-2024 ALP [Catalytic activity/Vol] 77 U/L 45-117 [facility] Serum or plasma calcium laith urement (mass/volume)Ordered By: Justice Knight on 06-21-2024 Calcium [Mass/Vol] 9.7 mg/dL 8.5-10.1 [facility] Serum or plasma cholesterol measurement (mass/volume)Ordered By: Justice Knight on 06-21-2024 Cholesterol [Mass/Vol] 245 mg/dL High <200 [facility] Comment on above: <200 mg/dL Desirable 200-240 mg/dL Borderline >240 mg/dL High Risk Serum or plasma creatinine m easurement (mass/volume)Ordered By: Justice Knight on 06-21-2024 Creatinine [Mass/Vol] 0.69 mg/dL 0.55-1.02 [facility] Comment on above: The validity of the calculated GFR & GFRAA in patients over 70 years has not been determined. Clinical correlation is essential. Serum or plasma urea nitroge n measurement (mass/volume)Ordered By: Justice Knight on 06-21-2024 Urea nitrogen [Mass/Vol] 13 mg/dL 7-18 [facility] Sodium levelOrdered By: Manda Knight on 06-21-2024 Sodium [Moles/Vol] 138 mmol/L 136-145 [facility] Total proteinOrdered By: Parth Knight on 06-21-2024 Protein [Mass/Vol] 7.8 g/dL 6.4-8.2 [facility] Triglycerides measurementOrd ered By: Justice Knight on 06-21-2024 Triglyceride [Mass/Vol] 113 mg/dL <199 [facility] Comment on above: The drugs N-Acetylcy steine and Metamizole may falsely depress this assay.Serum Triglycerides Reference Interval Normal <150 mg/dL Borderline high 150 - 199 mg/dL High 200 - 499 mg/dL Very High > or = 500 mg/dL Very low density lipoprotein (VLDL) cholesterol measurementOrdered By: Justice Knight on 06-21-2024 VLDL Cholesterol 23 mg/dL 5-40 [facility] White blood cell (WBC) count Ordered By: Justice Knight on 06-21-2024 WBC (Bld) [#/Vol] 5.9 10*3/uL 4.4-11.0 [facility] Internal Medicine Office Vis iton 06-06-2024 Internal Medicine Office Visit [facility] [address] [place] [address] [place] [address] OFFICE VISIT Date of Service: 06/06/24 MR#: [id number] Acct: [id number] Name: GERTRUDE VELASQUEZ Rep #: [id number] : 1965 Provider: Dr. Justice russ MD Age/Sex: 58/F Location: [facility] Status: Signed Intake Vital Signs 04/18/24 09:24 05/29/24 08:03 06/06/24 10:53 Height 5 ft 5 ft 5 ft Weight: 132 lb BMI 25.7 BP 120/80 Blood Pressure Location Lt brachial Position Sitting Respiration 16 Pulse 70 Pulse Source Monitor Temp 98.4 F Temp Source Temporal Pulse Oximetry (%) 99 Oxygen Delivery Method room air Intake Visit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 Negative [facility] Work Phone: Urine pHon 08-26-2021 pH (U) 6.5 [pH] [facility] Work Phone: Urine specific gravity measu rementon 08-26-2021 Specific gravity (U) [Rel density] 1.010 [facility] Work Phone: Urobilinogen Auto test strip Ql (U)on 08-26-2021 Urobilinogen Ql (U) Normal mg/dl Normal [facility] Work Phone: CNOVon 07-03-2019 CNOV Office Visit (UCWSTR ) ----- GERTRUDE VELASQUEZ ([id number]) 1965 F Date Time Provider Department 07/03/19 8:15 AM LAINE PATTERSON [facility] During your visit today, we recorded the following information about you: Temperature Pulse Respiration Blood pressure 97.2 degrees 57/minute 16/minute 110/78 Weight 56.1 kg Laine Patterson APRN.DIESEL LUBE TECH 07/03/2019 1:41 PM Signed Subjective HPI Pt presents with c/o post nasal drip x 3 weeks. States had URI sx which have all resolved. Has not taken any OTC medications. Denies fever, chills, myalgias, MALDONADO, sinus pressure. Review of Systems Constitutional: Negative for chills and fever. HENT: Negative for congestion, ear pain, sinus pain and sore throat. Respiratory: Negative for cough. Objective Physical Exam Constitutional: She is oriented to person, place, and time and well-developed, well-nourished, and in no distress. No distress. HENT: Head: Normocephalic. Right Ear: Hearing, tympanic membrane, external ear and ear canal normal. Left Ear: Hearing, tympanic membrane, external ear and ear canal normal. Nose: Nose normal. Right sinus exhibits no maxillary sinus tenderness and no frontal sinus tenderness. Left sinus exhibits no maxillary sinus tenderness and no frontal sinus tenderness. Mouth/Throat: Uvula is midline, oropharynx is clear and moist and mucous membranes are normal. No oropharyngeal exudate, posterior oropharyngeal edema, posterior oropharyngeal erythema (clear drainage) or tonsillar abscesses. Eyes: Pupils are equal, round, and reactive to light. Conjunctivae are normal. Right eye exhibits no discharge. Left eye exhibits no discharge. Neck: Neck supple. Cardiovascular: Normal rate, regular rhythm and normal heart sounds. Exam reveals no gallop and no friction rub. No murmur heard. Pulmonary/Chest: Effort normal and breath sounds normal. No accessory muscle usage. No tachypnea. No respiratory distress. She has no decreased breath sounds (CTA, good air movement throughout, no cough noted during exam.). She has no wheezes. She has no rhonchi. She has no rales. Lymphadenopathy: She has no cervical adenopathy. Neurological: She is alert and oriented to person, place, and time. Skin: Skin is warm. She is not diaphoretic. BP 110/78 Pulse (!) 57 Temp 36.2 ?C (97.2 ?F) (Tympanic) Resp 16 Wt 56.1 kg (123 lb 9.6 oz) LMP 03/15/2011 SpO2 99% BMI 23.35 kg/m? .Patient presents with: Sore Throat: sore throat and drainage x 1 month PAST MEDICAL HISTORY Diagnosis Date - Endometriosis, site unspecified - Esophageal reflux - Female infertility of unspecified origin - Generalized anxiety disorder Anxiety, Generalized - Migraine, unspecified, without mention of intractable migraine without mention of status migrainosus - PMH - PAST MEDICAL HISTORY OF FREQUENT YEAST INFECTIONS PAST SURGICAL HISTORY Procedure Laterality Date - PAST SURGICAL HISTORY OF 1999 LASER LAPOROSCOPY FOR ENDOMETRIOSIS - PAST SURGICAL HISTORY OF teeth extraction - PAST SURGICAL HISTORY OF 2004 INFECTION IN HAND - right - Animal Bite - VAGINAL HYSTERECTOMY 2011 Hysterectomy, vaginal ALLERGIES Sulfa [Other]; Environmental [Other]; Vioxx [Rofecoxib] MEDICATIONS meloxicam (MOBIC ORAL) Take by mouth. acetaminophen 325 mg-caffeine 40 mg-butalbital 50 mg (FIORICET) per tablet Take 1 tablet by mouth every 4 hours as needed for Headache (migraine). FLUoxetine 20 mg capsule Take 1 capsule by mouth once daily. multivitamins(DAILY MULTIVITAMIN TAB) Take one(1) tablet daily. cetirizine-pseudoephedrin e (ZYRTEC-D) 5-120 mg per tablet Take 1 tablet by mouth twice daily as needed. FAMILY HISTORY Problem Relation Age of Onset - Diabetes Maternal Grandmother - Breast Cancer Paternal Aunt - Alzheimer's Disease Maternal Grandfather - Hypertension Father - Hypertension Mother - Arthritis Mother Rheumatoid - Coronary Artery Disease Mother Social History Tobacco Use - Smoking status: Never Smoker - Smokeless tobacco: Never Used Substance Use Topics - Alcohol use: Yes Comment: Rarely - Drug use: No ASSESSMENT/PLAN: 1. Post-nasal drip - ICD9: 784.91, ICD10: R09.82 - CETIRIZINE 5 MG-PSEUDOEPHEDRINE ER 120 MG TABLET,EXTENDED RELEASE,12HR The patient is instructed to return or seek emergency treatment if symptoms become worse or with any acute change in condition. The patient verbalizes understanding and is in agreement with plan of care. Laine Patterson CNP Referring Provider: JUSTICE KNIGHT [[id number]] Allergies As of Date: 07/03/2019 Noted Allergy Reaction SULFA [Other] 03/19/2005 2 - Rash environmental [Other] 09/24/2005 9 - Itching VIOXX (ROFECOXIB) 09/23/2005 2 - Rash Date Reviewed: 07/03/2019 Reviewed by: Jessie Welsh LPN - Fully Assessed Reason for Visit: Sore Throat [200] Cmt: sore throat and drainage x 1 month Primary Visit Diagnosis:Post-nasal drip [R09.82] Order(s):cetirizine-pseud oephedrine (ZYRTEC-D) 5-120 mg per tabletTake 1 tablet by mouth twice daily as needed.Disp: 60 tabletRfl: 2 Prescriptions as of 07/03/2019 Sig: MOBIC ORAL Take by mouth. BUTALBITAL-ACETAMINOPHEN- CAFF* Take 1 tablet by mouth every * FLUOXETINE 20 MG CAPSULE Take 1 capsule by mouth once * DAILY MULTIVITAMIN TABLET Take one(1) tablet daily. CETIRIZINE 5 MG-PSEUDOEPHEDRI* Take 1 tablet by mouth twice * Problem List As Of Date 07/03/2019 Noted Resolved ALLERGIC RHINITIS NOS [J30.9] 08/17/2007 ANXIETY STATE NOS [F41.1] 08/17/2007 PMS (Premenstrual Syndrome) [N94.3] 01/29/2010 Elevated Antinuclear Antibody (FORREST) Level [R76.*01/29/2010 Migraine [G43.909] 01/13/2011 More... Endometriosis [N80.9] 06/16/2011 Endometriosis, site unspecified [N80.9] 06/30/2011 06/30/2012 Granulation tissue of vaginal cuff [N89.8] 09/19/2012 Prescriptions ordered this encounter Disp Refills Start End CETIRIZINE 5 MG-PSEUDOEPHEDRINE ER 1* 60 t* 2 07/03/2019 Route: ORAL Sig: Take 1 tablet by mouth twice daily as needed. Encounter Status:Closed by LAINE PATTERSON CNP on 07/03/19 [facility] PROGRESSon 07-03-2019 PROGRESS HNO ID: [id number] Author: Laine Patterson Service: ? Author Type: Nurse Practitioner Type: Progress Notes Filed: 07/03/2019 1:41 PM Note Text: Subjective HPI Pt presents with c/o post nasal drip x 3 weeks. States had URI sx which have all resolved. Has not taken any OTC medications. Denies fever, chills, myalgias, MALDONADO, sinus pressure. Review of Systems Constitutional: Negative for chills and fever. HENT: Negative for congestion, ear pain, sinus pain and sore throat. Respiratory: Negative for cough. Objective Physical Exam Constitutional: She is oriented to person, place, and time and well-developed, well-nourished, and in no distress. No distress. HENT: Head: Normocephalic. Right Ear: Hearing, tympanic membrane, external ear and ear canal normal. Left Ear: Hearing, tympanic membrane, external ear and ear canal normal. Nose: Nose normal. Right sinus exhibits no maxillary sinus tenderness and no frontal sinus tenderness. Left sinus exhibits no maxillary sinus tenderness and no frontal sinus tenderness. Mouth/Throat: Uvula is midline, oropharynx is clear and moist and mucous membranes are normal. No oropharyngeal exudate, posterior oropharyngeal edema, posterior oropharyngeal erythema (clear drainage) or tonsillar abscesses. Eyes: Pupils are equal, round, and reactive to light. Conjunctivae are normal. Right eye exhibits no discharge. Left eye exhibits no discharge. Neck: Neck supple. Cardiovascular: Normal rate, regular rhythm and normal heart sounds. Exam reveals no gallop and no friction rub. No murmur heard. Pulmonary/Chest: Effort normal and breath sounds normal. No accessory muscle usage. No tachypnea. No respiratory distress. She has no decreased breath sounds (CTA, good air movement throughout, no cough noted during exam.). She has no wheezes. She has no rhonchi. She has no rales. Lymphadenopathy: She has no cervical adenopathy. Neurological: She is alert and oriented to person, place, and time. Skin: Skin is warm. She is not diaphoretic. BP 110/78 Pulse (!) 57 Temp 36.2 ?C (97.2 ?F) (Tympanic) Resp 16 Wt 56.1 kg (123 lb 9.6 oz) LMP 03/15/2011 SpO2 99% BMI 23.35 kg/m? .Patient presents with: Sore Throat: sore throat and drainage x 1 month PAST MEDICAL HISTORY Diagnosis Date - Endometriosis, site unspecified - Esophageal reflux - Female infertility of unspecified origin - Generalized anxiety disorder Anxiety, Generalized - Migraine, unspecified, without mention of intractable migraine without mention of status migrainosus - PMH - PAST MEDICAL HISTORY OF FREQUENT YEAST INFECTIONS PAST SURGICAL HISTORY Procedure Laterality Date - PAST SURGICAL HISTORY OF 1999 LASER LAPOROSCOPY FOR ENDOMETRIOSIS - PAST SURGICAL HISTORY OF teeth extraction - PAST SURGICAL HISTORY OF 2004 INFECTION IN HAND - right - Animal Bite - VAGINAL HYSTERECTOMY 2011 Hysterectomy, vaginal ALLERGIES Sulfa [Other]; Environmental [Other]; Vioxx [Rofecoxib] MEDICATIONS meloxicam (MOBIC ORAL) Take by mouth. acetaminophen 325 mg-caffeine 40 mg-butalbital 50 mg (FIORICET) per tablet Take 1 tablet by mouth every 4 hours as needed for Headache (migraine). FLUoxetine 20 mg capsule Take 1 capsule by mouth once daily. multivitamins(DAILY MULTIVITAMIN TAB) Take one(1) tablet daily. cetirizine-pseudoephedrin e (ZYRTEC-D) 5-120 mg per tablet Take 1 tablet by mouth twice daily as needed. FAMILY HISTORY Problem Relation Age of Onset - Diabetes Maternal Grandmother - Breast Cancer Paternal Aunt - Alzheimer's Disease Maternal Grandfather - Hypertension Father - Hypertension Mother - Arthritis Mother Rheumatoid - Coronary Artery Disease Mother Social History Tobacco Use - Smoking status: Never Smoker - Smokeless tobacco: Never Used Substance Use Topics - Alcohol use: Yes Comment: Rarely - Drug use: No ASSESSMENT/PLAN: 1. Post-nasal drip - ICD9: 784.91, ICD10: R09.82 - CETIRIZINE 5 MG-PSEUDOEPHEDRINE ER 120 MG TABLET,EXTENDED RELEASE,12HR The patient is instructed to return or seek emergency treatment if symptoms become worse or with any acute change in condition. The patient verbalizes understanding and is in agreement with plan of care. Laine Patterson CNP Normal [facility] Office Visit: UC: L rib pain on 05-25-2017 Documentation of current medications (procedure) Done Invalid Interpretation Code [facility] Work Phone: Fall risk assessment No Invalid Interpretation Code [facility] Work Phone: Tobacco smoking status NHIS Never Invalid Interpretation Code [facility] Work Phone: Tobacco use CPHS Never smoker Invalid Interpretation Code [facility] Work Phone: Lab Report: CBC, Employeeon 02-25-2017 Absolute Neut 2.6 X10 3/UL Invalid Interpretation Code 2.0-7.7 [facility] Work Phone: Basophils/100 WBC Auto (Bld) 1.9 % High 0-1 [facility] Work Phone: Eosinophils/100 leukocytes 2.6 % Invalid Interpretation Code 0-5 [facility] Work Phone: Erythrocyte distribution width Auto Ratio (RBC) 12.5 % Invalid Interpretation Code 11.6-14.6 [facility] Work Phone: Erythrocytes (RBC) 4.41 10*6/uL Invalid Interpretation Code 4.2-5.4 [facility] Work Phone: Hematocrit (HCT) 40.6 % Invalid Interpretation Code 37-47 [facility] Work Phone: Hemoglobin mass conc (Bld) 13.4 g/dL Invalid Interpretation Code 12.0-15.0 [facility] Work Phone: Lymphocytes 1.59 X10 3/UL Invalid Interpretation Code 0.83-4.51 [facility] Work Phone: Lymphocytes/100 leukocytes 33.9 % Invalid Interpretation Code 19-41 [facility] Work Phone: MCH 30.4 pg Invalid Interpretation Code 27.0-32.0 [facility] Work Phone: MCHC mass conc (RBC) 33.0 G/GL Invalid Interpretation Code 32-36 [facility] Work Phone: MCV 92.1 fL Invalid Interpretation Code 81-99 [facility] Work Phone: Monocytes/100 leukocytes 6.8 % Invalid Interpretation Code 0-10 [facility] Work Phone: Neutrophils/100 WBC Auto (Bld) 54.6 % Invalid Interpretation Code 47-70 [facility] Work Phone: Platelets 251 10*3/mm3 Invalid Interpretation Code 150-450 [facility] Work Phone: PMV by Kevin 10.6 fL Invalid Interpretation Code 6.2-12.0 [facility] Work Phone: RDW SD 41.2 fL Invalid Interpretation Code 35.1-43.9 [facility] Work Phone: WBC (Leukocytes) 4.7 10*3/uL Invalid Interpretation Code 4.4-11.0 [facility] Work Phone: Lab Report: Employee Profile on 02-25-2017 Alanine aminotransferase (ALT) 33 U/L Invalid Interpretation Code 12-78 [facility] Work Phone: Albumin 4.0 g/dL Invalid Interpretation Code 3.4-5.0 [facility] Work Phone: Albumin/Globulin Ratio 1 {ratio} Invalid Interpretation Code 0.9-2.4 [facility] Work Phone: Alkaline phosphatase (ALP) 77 U/L Invalid Interpretation Code 45-117 [facility] Work Phone: [phone] Anion gap 9 mmol/L Invalid Interpretation Code 5-15 [facility] Work Phone: [phone] Aspartate aminotransferase (AST) 23 U/L Invalid Interpretation Code 15-37 [facility] Work Phone: [phone] Bilirubin (direct) 0.10 mg/dL Invalid Interpretation Code 0.00-0.30 [facility] Work Phone: [phone] Bilirubin (total) 0.50 mg/dL Invalid Interpretation Code 0.20-1.00 [facility] Work Phone: [phone] BUN/Creatinine Ratio 20.2 RATIO High 10-20 [facility] Work Phone: [phone] Calcium 8.8 mg/dL Invalid Interpretation Code 8.5-10.1 [facility] Work Phone: [phone] Chloride 103 mmol/L Invalid Interpretation Code 98-107 [facility] Work Phone: [phone] Cholesterol 162 mg/dL Invalid Interpretation Code 200 [facility] Work Phone: [phone] CO2 24.0 mmol/L Invalid Interpretation Code 21.0-32.0 [facility] Work Phone: [phone] Creatinine 0.69 mg/dL Invalid Interpretation Code 0.55-1.02 [facility] Work Phone: [phone] eGFR (non-black) 95 mL/min/{1.73_m2} Invalid Interpretation Code >60 [facility] Work Phone: [phone] eGFR (non-black) 115 mL/min/{1.73_m2} Invalid Interpretation Code >60 [facility] Work Phone: [phone] Globulin 3.9 g/dL High 2.3-3.5 [facility] Work Phone: [phone] Glucose mass conc 67 mg/dL Low 70-110 [facility] Work Phone: [phone] HDL Cholesterol 68 mg/dL Invalid Interpretation Code [facility] Work Phone: [phone] LDH 182 U/L Invalid Interpretation Code 84-246 [facility] Work Phone: LDL Cholesterol 82 mg/dL Invalid Interpretation Code 0-130 [facility] Work Phone: [phone] PHOS 3.4 mg/dL Invalid Interpretation Code 2.5-4.9 [facility] Work Phone: [phone] Potassium molar conc 3.5 mmol/L Invalid Interpretation Code 3.5-5.1 [facility] Work Phone: [phone] Protein 7.9 g/dL Invalid Interpretation Code 6.4-8.2 [facility] Work Phone: [phone] Sodium 136 mmol/L Invalid Interpretation Code 136-145 [facility] Work Phone: [phone] Triglyceride 62 mg/dL Invalid Interpretation Code [facility] Work Phone: [phone] Urate 3.4 mg/dL Invalid Interpretation Code 2.6-6.0 [facility] Work Phone: Urea nitrogen 14 mg/dL Invalid Interpretation Code 7-18 [facility] Work Phone: [phone] very low density lipoproteins 12 mg/dL Invalid Interpretation Code 5-40 [facility] Work Phone: Lab Report: Nicotine Urine D rug Screenon 02-25-2017 COT DRG SCREEN Negative Invalid Interpretation Code <200 ng/mL [facility] Work Phone: Lab Report: Urinalysis, Empl oyeeon 02-25-2017 Bilirubin Ql (U) Negative Invalid Interpretation Code Negative [facility] Work Phone: [phone] NITRITE UR Negative Invalid Interpretation Code Negative [facility] Work Phone: [phone] OCCULT BLOOD-UR Negative Invalid Interpretation Code Negative [facility] Work Phone: [phone] specific gravity, urine 1.010 Invalid Interpretation Code 1.002-1.030 [facility] Work Phone: [phone] Urine, clarity Clear Invalid Interpretation Code Clear [facility] Work Phone: [phone] Urine, color Yellow Invalid Interpretation Code Yellow [facility] Work Phone: [phone] Urine, glucose presence Normal mg/dl Invalid Interpretation Code Normal [facility] Work Phone: Urine, ketones presence Negative Invalid Interpretation Code Negative [facility] Work Phone: Urine, leukocyte esterase presence Negative Invalid Interpretation Code Negative [facility] Work Phone: Urine, pH 6.0 [pH] Invalid Interpretation Code 5.0 - 8.0 [facility] Work Phone: Urine, protein Negative Invalid Interpretation Code Negative [facility] Work Phone: UROBILI Normal mg/dl Invalid Interpretation Code Normal [facility] Work Phone: Vital Signs Date Time Vital Sign Value Performing Clinician Pieter nuno 01-22-2025 13:36-0400 Body height 152.[address] Justice Knight MD Work Phone: [facility] 01-22-2025 13:36-0400 Body mass index (BMI) [Ratio] 25.5 kg/m2 Dr. Justice Knight MD Work Phone: [facility] 01-22-2025 13:36-0400 Body weight 59.[address] Justice Knight MD Work Phone: [facility] 01-22-2025 13:36-0400 Diastolic blood pressure 73 mm[Hg] Dr. Justice Knight MD Work Phone: [facility] 01-22-2025 13:36-0400 Heart rate 56 /min Dr. Justice Knight MD Work Phone: [facility] 01-22-2025 13:36-0400 SaO2% (BldA) [Mass fraction] 98 % Dr. Justice Knight MD Work Phone: [facility] 01-22-2025 13:36-0400 Systolic blood pressure 116 mm[Hg] Dr. Justice Knight MD Work Phone: [facility] 12-25-2024 07:58-0400 Body height 152.[address] Justice Knight MD Work Phone: [facility] 12-25-2024 07:58-0400 Body mass index (BMI) [Ratio] 25.5 kg/m2 Dr. Justice Knight MD Work Phone: [facility] 12-25-2024 07:58-0400 Body temperature 98 [degF] Dr. Justice Knight MD Work Phone: [facility] 12-25-2024 07:58-0400 Body weight 59.[address] Justice Knight MD Work Phone: [facility] 12-25-2024 07:58-0400 Diastolic blood pressure 72 mm[Hg] Dr. Justice Knight MD Work Phone: [facility] 12-25-2024 07:58-0400 Heart rate 66 /min Dr. Justice Knight MD Work Phone: [facility] 12-25-2024 07:58-0400 Respiratory rate 15 /min Dr. Justice Knight MD Work Phone: [facility] 12-25-2024 07:58-0400 SaO2% (BldA) [Mass fraction] 100 % Dr. Justice Knight MD Work Phone: [facility] 12-25-2024 07:58-0400 Systolic blood pressure 115 mm[Hg] Dr. Justice Knight MD Work Phone: [facility] 11-09-2024 09:53-0400 Body temperature 98.1 [degF] Dr. Justice Knight MD Work Phone: [facility] 11-09-2024 09:53-0400 Diastolic blood pressure 94 mm[Hg] Dr. Justice Knight MD Work Phone: [facility] 11-09-2024 09:53-0400 Heart rate 58 /min Dr. Justice Knight MD Work Phone: [facility] 11-09-2024 09:53-0400 Respiratory rate 15 /min Dr. Justice Knight MD Work Phone: [facility] 11-09-2024 09:53-0400 SaO2% (BldA) [Mass fraction] 99 % Dr. Justice Knight MD Work Phone: [facility] 11-09-2024 09:53-0400 Systolic blood pressure 140 mm[Hg] Dr. Justice Knight MD Work Phone: [facility] 10-12-2024 11:21-0400 Body height 152.[address] Justice Knight MD Work Phone: [facility] 10-12-2024 11:21-0400 Body mass index (BMI) [Ratio] 25.2 kg/m2 Dr. Justice Knight MD Work Phone: [facility] 10-12-2024 11:21-0400 Body weight 58.[address] Justice Knight MD Work Phone: [facility] 10-12-2024 11:21-0400 Diastolic blood pressure 80 mm[Hg] Dr. Justice Knight MD Work Phone: [facility] 10-12-2024 11:21-0400 Heart rate 95 /min Dr. Justice Knight MD Work Phone: [facility] 10-12-2024 11:21-0400 SaO2% (BldA) [Mass fraction] 98 % Dr. Justice Knight MD Work Phone: [facility] 10-12-2024 11:21-0400 Systolic blood pressure 139 mm[Hg] Dr. Justice Knight MD Work Phone: [facility] 09-27-2024 07:59-0400 Body mass index (BMI) [Ratio] 25.4 kg/m2 Dr. Justice Knight MD Work Phone: [facility] 09-27-2024 07:59-0400 Body temperature 98.2 [degF] Dr. Justice Knight MD Work Phone: [facility] 09-27-2024 07:59-0400 Body weight 58.[address] Justice Knight MD Work Phone: [facility] 09-27-2024 07:59-0400 Diastolic blood pressure 66 mm[Hg] Dr. Justice Knight MD Work Phone: [facility] 09-27-2024 07:59-0400 Heart rate 70 /min Dr. Justice Knight MD Work Phone: [facility] 09-27-2024 07:59-0400 Respiratory rate 15 /min Dr. Justice Knight MD Work Phone: [facility] 09-27-2024 07:59-0400 SaO2% (BldA) [Mass fraction] 98 % Dr. Justice Knight MD Work Phone: [facility] 09-27-2024 07:59-0400 Systolic blood pressure 108 mm[Hg] Dr. Justice Knight MD Work Phone: [facility] 09-13-2024 16:12-0500 Body mass index (BMI) [Ratio] 25.5 kg/m2 Dr. Justice Knight MD Work Phone: [facility] 09-13-2024 16:12-0500 Body temperature 99.2 [degF] Dr. Justice Knight MD Work Phone: [facility] 09-13-2024 16:12-0500 Body weight 59.[address] Justice Knight MD Work Phone: [facility] 09-13-2024 16:12-0500 Diastolic blood pressure 78 mm[Hg] Dr. Justice Knight MD Work Phone: [facility] 09-13-2024 16:12-0500 Heart rate 74 /min Dr. Justice Knight MD Work Phone: [facility] 09-13-2024 16:12-0500 Respiratory rate 16 /min Dr. Justice Knight MD Work Phone: [facility] 09-13-2024 16:12-0500 SaO2% (BldA) [Mass fraction] 98 % Dr. Justice Knight MD Work Phone: [facility] 09-13-2024 16:12-0500 Systolic blood pressure 122 mm[Hg] Dr. Justice Knight MD Work Phone: [facility] 09-03-2024 14:09-0500 Body temperature 98.3 [degF] Dr. Justice Knight MD Work Phone: [facility] 09-03-2024 14:09-0500 Diastolic blood pressure 73 mm[Hg] Dr. Justice Knight MD Work Phone: [facility] 09-03-2024 14:09-0500 Heart rate 89 /min Dr. Justice Knight MD Work Phone: [facility] 09-03-2024 14:09-0500 Respiratory rate 16 /min Dr. Justice Knight MD Work Phone: [facility] 09-03-2024 14:09-0500 SaO2% (BldA) [Mass fraction] 96 % Dr. Justice Knight MD Work Phone: [facility] 09-03-2024 14:09-0500 Systolic blood pressure 124 mm[Hg] Dr. Justice Knight MD Work Phone: [facility] 09-03-2024 10:50-0500 Body mass index (BMI) [Ratio] 26.3 kg/m2 Dr. Justice Knight MD Work Phone: [facility] 09-03-2024 10:50-0500 Body weight 61.[address] Justice Knight MD Work Phone: [facility] 11-05-2023 18:00-0400 Body temperature 97.6 [degF] Dr. Justice Knight Work Phone: [facility] 11-05-2023 18:00-0400 Diastolic blood pressure 78 mm[Hg] Dr. Justice Knight Work Phone: [facility] 11-05-2023 18:00-0400 Heart rate 78 /min Dr. Justice Knight Work Phone: [facility] 11-05-2023 18:00-0400 Respiratory rate 16 /min Dr. Justice Knight Work Phone: [facility] 11-05-2023 18:00-0400 SaO2% (BldA) [Mass fraction] 99 % Dr. Justice Knight Work Phone: [facility] 11-05-2023 18:00-0400 Systolic blood pressure 107 mm[Hg] Dr. Justice Knight Work Phone: [facility] 11-05-2023 17:13-0400 Inhaled oxygen flow rate 4 L/min Dr. Justice Knight Work Phone: [facility] 11-05-2023 15:07-0400 Body height 152.[address] Justice Knight Work Phone: [facility] 08-24-2023 09:40-0500 Body temperature 98.6 [degF] Dr. Justice Knight Work Phone: [facility] 08-24-2023 09:40-0500 Body weight 60.[address] Justice Knight Work Phone: [facility] 08-24-2023 09:40-0500 Diastolic blood pressure 78 mm[Hg] Dr. Justice Knight Work Phone: [facility] 08-24-2023 09:40-0500 Heart rate 89 /min Dr. Justice Knight Work Phone: [facility] 08-24-2023 09:40-0500 Respiratory rate 14 /min Dr. Justice Knight Work Phone: [facility] 08-24-2023 09:40-0500 SaO2% (BldA) [Mass fraction] 99 % Dr. Justice Knight Work Phone: [facility] 08-24-2023 09:40-0500 Systolic blood pressure 120 mm[Hg] Dr. Justice Knight Work Phone: [facility] 07-19-2023 08:08-0500 Body mass index (BMI) [Ratio] 26.2 kg/m2 Dr. Justice Knight Work Phone: [facility] 07-19-2023 08:08-0500 Body temperature 98.2 [degF] Dr. Justice Knight Work Phone: [facility] 07-19-2023 08:08-0500 Body weight [address] Justice Knight Work Phone: [facility] 07-19-2023 08:08-0500 Diastolic blood pressure 72 mm[Hg] Dr. Justice Knight Work Phone: [facility] 07-19-2023 08:08-0500 Heart rate 99 /min Dr. Justice Knight Work Phone: [facility] 07-19-2023 08:08-0500 Respiratory rate 67 /min Dr. Justice Knight Work Phone: [facility] 07-19-2023 08:08-0500 SaO2% (BldA) [Mass fraction] 99 % Dr. Justice Knight Work Phone: [facility] 07-19-2023 08:08-0500 Systolic blood pressure 120 mm[Hg] Dr. Justice Knight Work Phone: [facility] 04-29-2023 09:28-0400 Body height 152.[address] Justice Knight Work Phone: [facility] 04-29-2023 09:28-0400 Body mass index (BMI) [Ratio] 25.7 kg/m2 Dr. Justice Knight Work Phone: [facility] 04-29-2023 09:28-0400 Body temperature 98 [degF] Dr. Justice Knight Work Phone: [facility] 04-29-2023 09:28-0400 Body weight 59.[address] Justice Knight Work Phone: [facility] 04-29-2023 09:28-0400 Diastolic blood pressure 70 mm[Hg] Dr. Justice Knight Work Phone: [facility] 04-29-2023 09:28-0400 Heart rate 60 /min Dr. Justice Knight Work Phone: [facility] 04-29-2023 09:28-0400 Respiratory rate 16 /min Dr. Justice Knight Work Phone: [facility] 04-29-2023 09:28-0400 SaO2% (BldA) [Mass fraction] 99 % Dr. Justice Knight Work Phone: [facility] 04-29-2023 09:28-0400 Systolic blood pressure 118 mm[Hg] Dr. Justice Knight Work Phone: [facility] 01-27-2023 09:13-0400 Body height 152.[address] Justice Knight Work Phone: [facility] 01-27-2023 09:13-0400 Body mass index (BMI) [Ratio] 25.4 kg/m2 Dr. Justice Knight Work Phone: [facility] 01-27-2023 09:13-0400 Body weight 58.[address] Justice Knight Work Phone: [facility] 12-01-2022 12:48-0400 Body mass index (BMI) [Ratio] 24.5 kg/m2 Dr. Justice Knight Work Phone: [facility] 12-01-2022 12:48-0400 Body weight 58.[address] Justice Knight Work Phone: [facility] 10-14-2022 16:07-0400 Body weight 58.[address] Justice Knight Work Phone: [facility] 10-14-2022 16:07-0400 Diastolic blood pressure 61 mm[Hg] Dr. Justice Knight Work Phone: [facility] 10-14-2022 16:07-0400 Heart rate 69 /min Dr. Justice Knight Work Phone: [facility] 10-14-2022 16:07-0400 Respiratory rate 16 /min Dr. Justice Knight Work Phone: [facility] 10-14-2022 16:07-0400 Systolic blood pressure 115 mm[Hg] Dr. Justice Knight Work Phone: [facility] 10-14-2022 11:51-0400 Body height 154.[address] Justice Knight Work Phone: [facility] 03-04-2022 09:36-0400 Body height 154.[address] Justice Knight Work Phone: [facility] Work Phone: 03-04-2022 09:36-0400 Body mass index (BMI) [Ratio] 23.2 kg/m2 Dr. Justice Knight Work Phone: [facility] Work Phone: 03-04-2022 09:36-0400 Body temperature 98.5 [degF] Dr. Justice Knight Work Phone: [facility] Work Phone: 03-04-2022 09:36-0400 Body weight 55.[address] Justice Knight Work Phone: [facility] Work Phone: 03-04-2022 09:36-0400 Diastolic blood pressure 70 mm[Hg] Dr. Justice Knight Work Phone: [facility] Work Phone: 03-04-2022 09:36-0400 Heart rate 59 /min Dr. Justice Knight Work Phone: [facility] Work Phone: 03-04-2022 09:36-0400 Respiratory rate 16 /min Dr. Justice Knight Work Phone: [facility] Work Phone: 03-04-2022 09:36-0400 SaO2% (BldA) [Mass fraction] 98 % Dr. Justice Knight Work Phone: [facility] Work Phone: 03-04-2022 09:36-0400 Systolic blood pressure 108 mm[Hg] Dr. Justice Knight Work Phone: [facility] Work Phone: 11-12-2021 17:28-0400 Body temperature 97.9 [degF] Dr. Justice Knight Work Phone: [facility] Work Phone: 11-12-2021 17:28-0400 Diastolic blood pressure 70 mm[Hg] Dr. Justice Knight Work Phone: [facility] Work Phone: 11-12-2021 17:28-0400 Heart rate 80 /min Dr. Justice Knight Work Phone: [facility] Work Phone: 11-12-2021 17:28-0400 Respiratory rate 15 /min Dr. Justice Knight Work Phone: [facility] Work Phone: 11-12-2021 17:28-0400 SaO2% (BldA) [Mass fraction] 99 % Dr. Justice Knight Work Phone: [facility] Work Phone: 11-12-2021 17:28-0400 Systolic blood pressure 122 mm[Hg] Dr. Justice Knight Work Phone: [facility] Work Phone: 11-02-2021 08:43-0400 Body temperature 98.2 [degF] Dr. Justice Knight Work Phone: [facility] Work Phone: 11-02-2021 08:43-0400 Diastolic blood pressure 64 mm[Hg] Dr. Justice Knight Work Phone: [facility] Work Phone: 11-02-2021 08:43-0400 Heart rate 68 /min Dr. Justice Knight Work Phone: [facility] Work Phone: 11-02-2021 08:43-0400 Respiratory rate 14 /min Dr. Justice Knight Work Phone: [facility] Work Phone: 11-02-2021 08:43-0400 SaO2% (BldA) [Mass fraction] 99 % Dr. Justice Knight Work Phone: [facility] Work Phone: 11-02-2021 08:43-0400 Systolic blood pressure 108 mm[Hg] Dr. Justice Knight Work Phone: [facility] Work Phone: 09-08-2021 14:53-0500 Body height 154.[address] Justice Knight Work Phone: [facility] Work Phone: 09-08-2021 14:53-0500 Body mass index (BMI) [Ratio] 24.3 kg/m2 Dr. Justice Knight Work Phone: [facility] Work Phone: 09-08-2021 14:53-0500 Body temperature 98.6 [degF] Dr. Justice Knight Work Phone: [facility] Work Phone: 09-08-2021 14:53-0500 Body weight 58.[address] Justice Knight Work Phone: [facility] Work Phone: 09-08-2021 14:53-0500 Diastolic blood pressure 64 mm[Hg] Dr. Justice Knight Work Phone: [facility] Work Phone: 09-08-2021 14:53-0500 Heart rate 78 /min Dr. Justice Knight Work Phone: [facility] Work Phone: 09-08-2021 14:53-0500 Respiratory rate 14 /min Dr. Justice Knight Work Phone: [facility] Work Phone: 09-08-2021 14:53-0500 SaO2% (BldA) [Mass fraction] 97 % Dr. Justice Knight Work Phone: [facility] Work Phone: 09-08-2021 14:53-0500 Systolic blood pressure 101 mm[Hg] Dr. Justice Knight Work Phone: [facility] Work Phone: 08-28-2021 07:23-0500 Body mass index (BMI) [Ratio] 23.8 kg/m2 Dr. Justice Knight Work Phone: [facility] Work Phone: 08-28-2021 07:23-0500 Body temperature 97.7 [degF] Dr. Justice Knight Work Phone: [facility] Work Phone: 08-28-2021 07:23-0500 Body weight 57.[address] Justice Knight Work Phone: [facility] Work Phone: 08-28-2021 07:23-0500 Diastolic blood pressure 72 mm[Hg] Dr. Justice Knight Work Phone: [facility] Work Phone: 08-28-2021 07:23-0500 Heart rate 66 /min Dr. Justice Knight Work Phone: [facility] Work Phone: 08-28-2021 07:23-0500 Respiratory rate 14 /min Dr. Justice Knight Work Phone: [facility] Work Phone: 08-28-2021 07:23-0500 SaO2% (BldA) [Mass fraction] 99 % Dr. Justice Knight Work Phone: [facility] Work Phone: 08-28-2021 07:23-0500 Systolic blood pressure 124 mm[Hg] Dr. Justice Knight Work Phone: [facility] Work Phone: 05-25-2017 08:12-0500 BMI (Body Mass Index) 22.29 kg/m2 Madelainevivian Corona LPN [facility] Work Phone: 05-25-2017 08:12-0500 Body Temperature 98.3 [degF] Madelaine Cj FERRER [facility] Work Phone: 05-25-2017 08:12-0500 BP Diastolic 62 mm[Hg] Madelaine Cj FERRER [facility] Work Phone: 05-25-2017 08:12-0500 BP Systolic 106 mm[Hg] Madelaine Cj FERRER [facility] Work Phone: 05-25-2017 08:12-0500 Height 154.94 cm Madelaine Manningsummer FERRER [facility] Work Phone: 05-25-2017 08:12-0500 Pulse (Heart Rate) 78 /min Madelainevivian Corona LPN [facility] Work Phone: 05-25-2017 08:12-0500 Respiratory Rate 14 /min Madelainevivian Corona LPN [facility] Work Phone: 05-25-2017 08:12-0500 Weight 53.52 kg Madelaine Manningsummer FERRER [facility] Work Phone: Encounters Encounter Date Encounter Type Care Provider Facility Start: 02-13-2025 End: 02-13-[address] Justice Knight MD Work Phone: -Laboratory Start: 02-13-2025 End: 02-13-[address] Enrico Luo MD -Laboratory Work Phone: Start: 02-13-2025 End: 02-13-2025 ambulatory [facility] Facility:[facility] Start: 01-22-2025 End: 01-22-[address] Enrico Luo MD -[facility] Work Phone: Start: 01-22-2025 End: 01-22-[address] Justice Knight MD Work Phone: [facility] Start: 01-15-2025 End: 01-15-[address] Justice Knight MD Work Phone: -Laboratory Start: 01-15-2025 End: 01-15-[address] Enrico Luo MD -Laboratory Work Phone: Start: 01-15-2025 End: 01-15-2025 ambulatory [facility] Facility:[facility] Start: 12-25-2024 End: 12-25-[address] Wes Zaragoza MD -[facility] Work Phone: Start: 12-25-2024 End: 12-25-[address] Justice Knight MD Work Phone: [facility] Work Phone: Start: 12-17-2024 End: 12-17-[address] Justice Knight MD Work Phone: [facility] Work Phone: Start: 12-17-2024 End: 12-17-[address] Enrico Luo MD -Laboratory Work Phone: Start: 12-17-2024 End: 12-17-2024 ambulatory [facility] Facility:[facility] Start: 11-27-2024 End: 11-27-[address] Justice Knight MD Work Phone: [facility] Work Phone: Start: 11-27-2024 End: 11-27-[address] Enrico Luo MD -Laboratory Work Phone: Start: 11-27-2024 End: 11-27-2024 ambulatory [facility] Facility:[facility] Start: 11-12-2024 End: 11-12-[address] Enrico Luo MD -Laboratory Work Phone: Start: 11-12-2024 End: 11-12-2024 ambulatory [facility] Facility:[facility] Start: 11-09-2024 End: 11-09-2024 Patient encounter procedure Santiago INMAN [facility] Work Phone: Start: 11-09-2024 End: 11-09-2024 ambulatory Santiago INMAN Facility:[facility] Start: 10-19-2024 End: 10-19-[address] Justice Knight MD Work Phone: [facility] Work Phone: Start: 10-19-2024 End: 10-19-[address] Justice Knight MD -Laboratory Work Phone: Start: 10-19-2024 End: 10-19-2024 ambulatory [facility] Facility:[facility] Start: 10-12-2024 End: 10-12-[address] Enrico Luo MD -[facility] Work Phone: Start: 10-12-2024 End: 10-12-2024 ambulatory [facility] Facility:[facility] Start: 10-11-2024 End: 10-11-[address] Justice Knight MD Work Phone: [facility] Work Phone: Start: 10-11-2024 End: 10-11-2024 Patient encounter procedure Markus INMAN -Laboratory Work Phone: Start: 10-11-2024 End: 10-11-2024 ambulatory [facility] Facility:[facility] Start: 10-09-2024 End: 10-09-[address] Justice Knight MD Work Phone: [facility] Work Phone: Start: 10-09-2024 End: 10-09-[address] Wes Zaragoza MD -MRI - [facility] Work Phone: Start: 10-09-2024 End: 10-09-2024 ambulatory [facility] Start: 10-03-2024 End: 10-03-2024 Patient encounter procedure Mitra BRICEÑOC -[facility] Work Phone: Start: 10-03-2024 End: 10-03-2024 ambulatory Mitra Lopez Facility:[facility] Start: 09-27-2024 End: 09-27-[address] Wes Zaragoza MD -[facility] Work Phone: Start: 09-27-2024 End: 09-27-2024 ambulatory Wes Zaragoza Facility:[facility] Start: 09-13-2024 End: 09-13-2024 Patient encounter procedure Markus INMAN -[facility] Work Phone: Start: 09-13-2024 End: 09-13-2024 ambulatory [facility] Facility:[facility] Start: 09-03-2024 End: 09-03-2024 Emergency department patient visit Dr. Cyrus Escalante MD -Emergency Department Work Phone: Start: 08-21-2024 End: 08-21-[address] Justice Knight MD -Outpatient Bone Densitometry Work Phone: Start: 08-21-2024 End: 08-21-2024 ambulatory [facility] Facility:[facility] Start: 07-24-2024 Encounter for genera l adult medical examination without abnormal findings [facility] Start: 06-21-2024 End: 06-21-[address] Justice Knight MD -Laboratory, [facility] Start: 06-21-2024 End: 06-21-2024 ambulatory Justice Knight Facility:[facility] Start: 06-06-2024 End: 06-06-2024 ambulatory Mandaaleena Eugene Facility:[facility] Start: 05-29-2024 End: 05-29-2024 [facility] Start: 04-18-2024 End: 04-18-2024 ambulatory [facility] Facility:[facility] Start: 11-05-2023 End: 11-05-2023 Emergency department patient visit Dr. Justice Knight Work Phone: [facility]-Emergency Department Work Phone: Start: 08-24-2023 End: 08-24-[address] Justice Knight Work Phone: [facility] Work Phone: Start: 07-19-2023 End: 07-19-[address] Justice Knight Work Phone: [facility] Work Phone: Start: 06-03-2023 End: 06-03-[address] Justice Knight Work Phone: [facility] Work Phone: Start: 06-03-2023 End: 06-03-[address] Justice Knight Work Phone: [facility]-Outpatient Breast Imaging Work Phone: Start: 05-26-2023 End: 05-26-[address] Justice Knight Work Phone: [facility] Work Phone: Start: 04-29-2023 End: 04-29-2023 Encounter for general adult medical examination without abnormal findings Dr. Justice Knight Work Phone: [facility] Start: 04-29-2023 End: 04-29-[address] Justice Knight Work Phone: [facility] Work Phone: Start: 03-14-2023 End: 03-14-[address] [facility] Work Phone: Start: 02-16-2023 End: 02-16-[address] Justice Knight Work Phone: [facility] Work Phone: Start: 02-09-2023 End: 02-09-[address] [facility] Work Phone: Start: 01-27-2023 End: 01-27-[address] [facility] Work Phone: Start: 01-13-2023 Non-patient / Non-visit Dr. Rebecca Knight Work Phone: [facility] Start: 12-22-2022 End: 12-22-[address] Justice Knight Work Phone: [facility]-Laboratory Work Phone: Start: 12-15-2022 End: 12-15-[address] Justice Knight Work Phone: [facility] Work Phone: Start: 12-15-2022 End: 12-15-[address] Justice Knight Work Phone: [facility] Work Phone: Start: 12-01-2022 End: 12-01-[address] Justice Knight Work Phone: [facility] Work Phone: Start: 10-15-2022 Non-patient / Non-visit Dr. Rebecca Knight Work Phone: [facility] Start: 10-15-2022 End: 10-15-[address] Justice Knight Work Phone: [facility] Work Phone: Start: 10-15-2022 End: 10-15-[address] [facility] Start: 10-14-2022 End: 10-14-[address] Justice Knight Work Phone: [facility] Start: 08-09-2022 End: 08-09-2022 Emergency department patient visit [facility] Start: 06-30-2022 End: 06-30-[address] Justice Knight Work Phone: [facility] Start: 03-12-2022 End: 03-12-[address] Justice Knight Work Phone: [facility] Work Phone: Start: 03-12-2022 End: 03-12-[address] Justice Knight Work Phone: [facility]-Outpatient Breast Imaging Start: 03-04-2022 End: 03-04-2022 Encounter for general adult medical examination without abnormal findings Dr. Justice Knight Work Phone: [facility] Start: 03-04-2022 End: 03-04-[address] Justice Knight Work Phone: [facility] Start: 11-12-2021 End: 11-12-[address] Justice Knight Work Phone: [facility] Start: 11-10-2021 End: 11-10-[address] Justice Knight Work Phone: [facility] Virtual Visit Start: 11-02-2021 End: 11-02-[address] Justice Knight Work Phone: [facility] Start: 09-08-2021 End: 09-08-[address] Justice Knight Work Phone: [facility] Start: 08-28-[address] Justice Knight Work Phone: [facility] Start: 08-28-2021 End: 08-28-2021 Encounter for general adult medical examination without abnormal findings Dr. Justice Knight Work Phone: [facility] Start: 08-28-2021 End: 08-28-[address] Justice Knight Work Phone: [facility] Start: 08-26-[address] Tejal Knight [facility] Date Procedure Procedure Detail Performing Clinician Start: 10-11-[address] dy [address] Justice Knight MD Work Phone: Comment on above: Thyroglobulin Antibo dy measured by [employer] BoxMethodologyIt should be noted that the presence of thyroglobulinantibodies may not be pathogenic nor diagnostic, especiallyat very low levels. The assay software reverse engineer has found thatfour percent of individuals without evidence of thyroiddisease or autoimmunity will have positive TgAb levels upto 4 IU/mL.Performed at: [place] [id number] [place], [place] [id number] Director: Kris Gary PhD, Phone: [phone] Start: 10-09-2024 Vitamin D, 25-hydrox y measurement Dr. Justice Knight MD Work Phone: Comment on above: Vitamin D StatusDefi ciency: <20 ng/mL (50nmol/L)Insufficiency: 20-30 ng/mL (50-75 nmol/L)Sufficiency: 30-100 ng/mL (75-250 nmol/L)Toxicity: >100 ng/mL (>250 nmol/L) Start: 10-09-2024 MRI of cervical spin e with contrast Dr. Justice Knight MD Work Phone: Start: 09-03-[address] Justice Knight MD Work Phone: Start: 09-03-2024 Measurement of renal function Dr. Justice Knight MD Work Phone: Comment on above: GFR Calc Start: 09-03-2024 X-ray of chest, PA a nd lateral views Dr. Justice Knight MD Work Phone: Start: 08-21-2024 Dual energy X-ray absorptiometry Dr. Justice Knight MD Work Phone: Start: 08-21-2024 Screening mammography Kai Knight MD Work Phone: Start: 11-05-2023 Plain x-ray of wrist Dr Deni Knight Work Phone: Start: 11-05-2023 Plain x-ray of wrist Dr Deni Knight Work Phone: Start: 06-03-2023 Screening mammography Kai Knight Work Phone: Start: 12-22-2022 X-ray of cervical spine Dr. Justice Knight Work Phone: Start: 12-15-2022 MRI of brain with contrast Dr. Justice Knight Work Phone: Start: 10-15-2022 CT angiography of co ronary arteries Dr. Justice Knight Work Phone: Start: 03-12-2022 Screening mammography Kai Knight Work Phone: Start: 11-12-2021 Plain chest X-ray Dr. Eladia Knight Work Phone: Start: 10-07-2016 End: 10-07-2016 Iaadiadoo streptococcus group a Martin INMAN Work Phone: Start: 08-31-2016 End: 08-31-2016 Appl modality 1/> areas elec stimj unattended Shanell Paiz Start: 08-31-2016 End: 08-31-2016 Appl modality 1/> areas traction mechanical Shanell Melchorimes Start: 08-31-2016 End: 08-31-2016 Chiropractic manipulative tx spinal 3-4 regions Shanell Paiz Start: 05-31-2016 End: 05-31-2016 Appl modality 1/> areas elec stimj unattended Samantha B Dossi DC Work Phone: Start: 05-31-2016 End: 05-31-2016 Appl modality 1/> areas traction mechanical Samantha B Dossi DC Work Phone: Start: 05-31-2016 End: 05-31-2016 Chiropractic manipulative tx spinal 3-4 regions Samantha B Dossi DC Work Phone: Plan of Treatment Date Care Activity Detail Author Start: 09-03-2024 [facility] Start: 11-05-2023 [facility] Start: 01-13-2023 Patient referral [facility] Work Phone: Start: 03-18-2022 Influenza vaccination Influenza Vaccine (#1) [facility] Start: 12-05-2017 Zoster Vaccines (1 of 2) Zoster Vaccines (1 of 2) [facility] Start: 05-25-2017 End: 05-25-2017 BUN (urea nitrogen) X-Ray, Rib, Unilateral [facility] Work Phone: Start: 05-25-2017 End: 05-25-2017 Chest x-ray X-Ray, Chest, PA & Lateral [facility] Work Phone: Start: 05-25-2017 End: 05-25-2017 Appointment Appointment [facility] Work Phone: Start: 03-03-2017 End: 03-03-2017 Follow Up Appt 6 months Follow Up Appt 6 months [facility] Work Phone: Start: 03-03-2017 End: 03-03-2017 Mammogram, screening Mammogram, Screening, both breasts [facility] Work Phone: Start: 10-07-2016 End: 10-07-2016 Streptococcus.beta-hemolyti c [Presence] in Throat by Organism specific culture *Culture, R/O Strep A Swab [facility] Work Phone: Start: 05-31-2016 End: 05-31-2016 Follow up Appt 3x/week Follow up Appt 3x/week [facility] Work Phone: Start: 05-25-2016 End: 05-27-2016 Follow up Appt 3x/week Follow up Appt 3x/week [facility] Work Phone: Start: 05-25-2016 End: 05-27-2016 Radex spine lumbosacral minimum 4 views X-Ray, Spine, Lumbosacral 2-3 views [facility] Work Phone: Start: 2007 Screening for malignant neoplasm of breast Mammogram [facility] Start: 12-05-1997 Screening for malignant neoplasm of cervix [facility] Start: 12-05-1988 Screening for malignant neoplasm of cervix Pap Smear [facility] Start: 12-05-1986 DTaP/Tdap/Td Vaccines (1 - Tdap) DTaP/Tdap/Td Vaccines (1 - Tdap) [facility] Start: 12-05-1985 Hepatitis C screening Hepatitis C Screening [facility] Start: 12-05-1968 MMR Vaccines (1 of 1 - Standard series) MMR Vaccines (1 of 1 - Standard series) [facility] Start: 06-07-1968 COVID-19 Vaccine (#1) COVID-19 Vaccine (#1) [facility] Start: 1967 Hepatitis B Vaccines (1 of 3 - 3-dose series) Hepatitis B Vaccines (1 of 3 - 3-dose series) [facility] Start: 1967 HIV screening HIV Screening [facility] Start: 1967 Screening for malignant neoplasm of colon [facility] CBC W Auto Different ial panel - Blood [facility] Lipid 1996 panel - S florentino or Plasma [facility] Patient Education [facility] Work Phone: Patient referral [facility] Work Phone: T4 free measurement [facility] T4 free measurement [facility] Thyroid stimulating hormone measurement [facility] Thyroid stimulating hormone measurement [facility] Thyroid stimulating immunoglobulins actual/normal in Serum [facility] Triiodothyronine, fr ee measurement [facility] Triiodothyronine, fr ee measurement [facility] Immunizations Immunization Date Immunization Notes Care Provider Fa [facility] 05-07-2024 influenza, seasonal, injectable, preservative free Dr. Justice Knight MD Work Phone: [facility] 06-13-2023 influenza, injectabl e, quadrivalent, preservative free Dr. Justice Knight Work Phone: [facility] 05-24-2022 influenza, injectabl e, quadrivalent, preservative free Dr. Justice Knight Work Phone: [facility] 05-24-2022 influenza, seasonal, injectable Dr. Justice Knight Work Phone: [facility] 04-02-2022 Mayda Atkinson nt Booster Dr. Justice Knight Work Phone: [facility] 05-20-2021 Mayda Romero) Dr. Julian Knight Work Phone: [facility] 04-14-2021 influenza, injectabl e, quadrivalent, preservative free Dr. Justice Knight Work Phone: [facility] 04-14-2021 influenza, seasonal, injectable Dr. Justice Knight Work Phone: [facility] 08-18-2020 Covid (Modern) Dr. Julian Knight Work Phone: [facility] 07-21-2020 Covid (Modern) Dr. Julian Knight Work Phone: [facility] 05-05-2020 influenza, injectabl e, quadrivalent, preservative free Dr. Justice Knight Work Phone: [facility] 05-05-2020 influenza, seasonal, injectable Dr. Justice Knight Work Phone: [facility] 04-12-2019 influenza, injectabl e, quadrivalent, preservative free Dr. Justice Knight Work Phone: [facility] 04-12-2019 influenza, seasonal, injectable Dr. Justice Knight Work Phone: [facility] 06-01-2018 influenza, injectabl e, quadrivalent, preservative free Dr. Justice Knight Work Phone: [facility] 06-01-2018 influenza, seasonal, injectable Dr. Justice Knight Work Phone: [facility] 04-13-2017 influenza, injectabl e, quadrivalent, preservative free Dr. Justice Knight Work Phone: [facility] 04-13-2017 influenza, seasonal, injectable Dr. Justice Knight Work Phone: [facility] 04-15-2016 influenza, injectabl e, quadrivalent, preservative free Dr. Justice Knight Work Phone: [facility] 04-15-2016 influenza, seasonal, injectable Dr. Justice Knight Work Phone: [facility] 05-13-2015 influenza, injectabl e, quadrivalent, preservative free Dr. Justice Knight Work Phone: [facility] 05-13-2015 influenza, seasonal, injectable Dr. Justice Knight Work Phone: [facility] 04-03-2014 influenza, injectabl e, quadrivalent, preservative free Dr. Justice Knight Work Phone: [facility] 04-03-2014 influenza, seasonal, injectable Dr. Justice Knight Work Phone: [facility] Payers Date Payer Category Payer Self-pay [id number] 2023 Unknown [id number] 2016 Unknown [id number] Unknown . [id number] Unknown [id number] Unknown [id number] 2.16.8 [id number] Unknown [id number] 2.16.8 40.1.352562.3.579.2.462 Unknown [id number] 2.16.8 40.1.701287.3.579.2.462 Unknown [id number] 2.16.8 40.1.123378.3.579.2.462 Unknown [id number] 2.16.8 40.1.701396.3.579.2.462 Unknown [id number] 2.16.8 40.1.903250.3.579.2.462 Unknown [id number] 2.16.8 40.1.727660.3.579.2.462 Unknown [id number] 2.16.8 40.1.840950.3.579.2.462 Unknown [id number] 2.16.8 40.1.389479.3.579.2.462 Unknown [id number] 2.16.8 40.1.546789.3.579.2.462 Unknown [id number] 2.16.8 40.1.425968.3.579.2.462 Unknown [id number] 2.16.8 40.1.079141.3.579.2.462 Unknown [id number] 2.16.8 40.1.442354.3.579.2.462 Unknown [id number] 2.16.8 40.1.043398.3.579.2.462 Unknown [id number] 2.16.8 40.1.320009.3.579.2.462 Unknown [id number] 2.16.8 40.1.801511.3.579.2.462 Unknown [id number] 2.16.8 40.1.035221.3.579.2.462 Unknown [id number] 2.16.8 40.1.929686.3.579.2.462 Unknown [id number] 2.16.8 40.1.086677.3.579.2.462 Unknown [id number] 2.16.8 40.1.110429.3.579.2.462 Unknown [id number] 2.16.8 40.1.982506.3.579.2.462 Social History Date Type Detail Facility Start: 09-08-2021 End: 11-05-2023 Tobacco smoking status NHIS Unknown if ever smoked [facility] Start: 1965 Sex Assigned At Female W [facility] Start: 1965 Sex Assigned At Not on file S [facility] Start: 10-12-2024 Tobacco smoking stat us PAIS Never smoked tobacco (finding) [facility] Start: 10-15-2024 End: 10-24-2024 Sex Female (finding) [facility] Goals Date Patient Goal Desired Activity /State Mental Status Date Assessment Result Facility 11-05-2023 Cognitive function Awake;Alert;A ppropriate;Fol lows Commands [facility] Work Phone: Clinical Notes 09-13-2024 to 11-09-2024 Note Date & Type Note Facility 11-09-2024 Evaluation note Diagnosis Onset Date Resolution Acute sinusitis acute October 9:40am Neck pain acute December 25 7:58am Migraine headache without aura chronic December 25, 2024 7:58am Abnormal gait resolved December 25, 2024 7:58am Hyperthyroidism acute January 22, 2025 1:30pm Osteopenia determined by x-ray acute January 22, 2025 1:30pm [facility] Work Phone: 1(880) 139-739703-13-2025 Evaluation note* Diagnosis Onset Date Resolution Status Admit Date Neck pain acute September 27 7:55am Migraine headache without aura chron ic September 27, 2024 7:55am Abnormal gait resolved September 27, 2024 7:55am Migraine headache without aura chron ic October 03, 2024 12:57pm Hyperthyroidism acute September 11:19am Acute sinusitis acute October 9:40am Neck pain acute December 25 7:58am Migraine headache without aura chron ic December 25, 2024 7:58am Abnormal gait resolved December 25, 2024 7:58am Hyperthyroidism acute January 22, 2025 1:30pm [facility] Work Phone: 1(870) 787-485503-13-2025 Evaluation note* Diagnosis Onset Date Resolution Status Admit Date Neck pain acute September 27 7:55am Migraine headache without aura chron ic September 27, 2024 7:55am Abnormal gait resolved September 27, 2024 7:55am Migraine headache without aura chron ic October 03, 2024 12:57pm Hyperthyroidism acute September 11:19am Acute sinusitis acute October 9:40am Neck pain acute December 25 7:58am Migraine headache without aura chron ic December 25, 2024 7:58am Abnormal gait resolved December 25, 2024 7:58am Hyperthyroidism acute January 22, 2025 1:30pm Osteopenia determined by x-ray acute January 22, 2025 1:30pm [facility] Work Phone: 1(968) 877-537302-27-2025 Evaluation note* Diagnosis Onset Date Resolution Status Admit Date Chest pain of uncertain etiology acute September 13, 4:04pm Depression with anxiety chronic F [facility] 2024 4:04pm Abnormal gait acute September 27, 2024 7:55am Neck pain acute September 27 7:55am Migraine headache without aura chron ic September 27, 2024 7:55am Migraine headache without aura chron ic October 03, 2024 12:57pm Hyperthyroidism acute September 11:19am [facility] Work Phone: 1(565) 124-165502-27-2025 Evaluation note* Diagnosis Onset Date Resolution Status Admit Date Chest pain of uncertain etiology acute September 13, 4:04pm Depression with anxiety chronic F [facility] 2024 4:04pm Abnormal gait acute September 27, 2024 7:55am Neck pain acute September 27 7:55am Migraine headache without aura chron ic September 27, 2024 7:55am Migraine headache without aura chron ic October 03, 2024 12:57pm Hyperthyroidism acute September 11:19am Acute sinusitis acute October 9:40am [facility] Work Phone: Chief complaint+Reason for visit Narrative* Chief Complaint 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 6 M FU CONSULT COVID-19 COVID TEST/[facility] EMPLOYEES/SYMPTOMATIC Cough Cough EORDER Reason for Visit Health care maintena nce Depression with anxiety Migraine Elective procedure for unacceptable cosmetic appearance Excess skin of neck Facial aging Facial rhytids Platysmal band of neck Skin laxity Influenza A Influenza A Acute bronchitis, unspecified Acute sinusitis, unspecified [facility] Work Phone: Evaluation note* Diagnosis Onset Date Resolution Status Health care maintenance acut e 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 Elective procedure for unacceptable cosmetic appearanc e chronic Excess skin of neck chronic Facial aging chronic Facial rhytids chronic Platysmal band of neck chron ic Skin laxity chronic [facility] Work Phone: Evaluation note* Diagnosis Onset Date Resolution Status Health care maintenance acut e 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 Elective procedure for unacceptable cosmetic appearanc e chronic Excess skin of neck chronic Facial aging chronic Facial rhytids chronic Platysmal band of neck chron ic Skin laxity chronic Influenza A acute Influenza A acute Acute bronchitis, unspecified acute Acute sinusitis, unspecified acute [facility] Work Phone: Evaluation note* Diagnosis Onset Date Resolution Status 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 Preventative health care non eactive [facility] Work Phone: Evaluation note* Diagnosis Onset Date Resolution Status Chest pain acute [facility] Work Phone: Evaluation note* Diagnosis Onset Date Resolution Status Chest pain acute Anemia acute Fatigue chronic Migraine headache without aura chronic Neck pain chronic Segmental and somatic dysfunction of cervical region acute Segmental and somatic dysfunction of lumbar region acute Segmental and somatic dysfunction of pelvic region acute Segmental and somatic dysfunction of thoracic region acute DDD (degenerative disc disease) chronic Neck pain chronic Scoliosis of lumbar spine [facility] Work Phone: Evaluation note* Diagnosis Onset Date Resolution Status Neck pain acute Segmental and somatic dysfunction of cervical region acute Segmental and somatic dysfunction of lumbar region acute Segmental and somatic dysfunction of pelvic region acute Segmental and somatic dysfunction of thoracic region acute DDD (degenerative disc disease) chronic Scoliosis of lumbar spine [facility] Neck pain acute Segmental and somatic dysfunction of cervical region acute Segmental and somatic dysfunction of lumbar region acute Segmental and somatic dysfunction of pelvic region acute Segmental and somatic dysfunction of thoracic region acute DDD (degenerative disc disease) chronic Scoliosis of lumbar spine [facility] Neck pain acute Segmental and somatic dysfunction of cervical region acute Segmental and somatic dysfunction of lumbar region acute Segmental and somatic dysfunction of pelvic region acute Segmental and somatic dysfunction of thoracic region acute DDD (degenerative disc disease) chronic Scoliosis of lumbar spine [facility] Health care maintenance acut e 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 The splint clean and dry and follow-up with orthopedics.[facility] Work Phone: Reason for referral (narrative)No reason for referral information [facility] Work [facility]: Summary Purpose Family History No Family History Records Found Relationship Condition Age at Onset Recorded Date/T grecia Not Specified Anxiety Unknown Depression Unknown Hypertension Unknown mother Arthritis Unknown Cardiac disease Unknown grandmother Diabetes mellitus Unknown father Cardiac disease Unknown Advance Directives No Advanced Directives Records Found Advance Directive Response Recorded Date/ Time Living Will Yes January 05, 2021 1:58pm Power of Java Application Developer Yes January 05 1:58pm Advance Directive Response Recorded Date/ Time Living Will Yes January 05, 2021 12:58pm Power of Java Application Developer Yes January 05 12:58pm Advance Directive Response Recorded Date/ Time Living Will Yes September 03 025 11:54am Do you have a Healthcare Power of Java Application Developer? 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 Reason for Visit Health care maintena nce Depression with anxiety Migraine Elective procedure for unacceptable cosmetic appearance Excess skin of neck Facial aging Facial rhytids Platysmal band of neck Skin laxity Chief Complaint 6 M FU, MED REFILLS SCREENING Reason for Visit Migraine Preventative health care Chief Complaint COVID TEST/[facility] EMPLO MANZANARES PER SIDEROGRAPHIST CHEST PAIN Reason for Visit Chest pain Chief Complaint PER SIDEROGRAPHIST CHEST PAIN MIGRAINES MIGRAINES, DIZZINESS INT LABS/RAD REEVAL NECK PAIN Reason for Visit Chest pain Anemia Fatigue Migraine headache without aura Neck pain Segmental and somatic dysfunction of cervical region Segmental and somatic dysfunction of lumbar region Segmental and somatic dysfunction of pelvic region Segmental and somatic dysfunction of thoracic region DDD (degenerative disc disease) Neck pain Scoliosis of lumbar spine Chief Complaint BACK PAIN Back pain Back pain 1 yr fu Neck pain SCREENING Reason for Visit Neck pain Segmental and somatic dysfunction of cervical region Segmental and somatic dysfunction of lumbar region Segmental and somatic dysfunction of pelvic region Segmental and somatic dysfunction of thoracic region DDD (degenerative disc disease) Scoliosis of lumbar spine Neck pain Segmental and somatic dysfunction of cervical region Segmental and somatic dysfunction of lumbar region Segmental and somatic dysfunction of pelvic region Segmental and somatic dysfunction of thoracic region DDD (degenerative disc disease) Scoliosis of lumbar spine Neck pain Segmental and somatic dysfunction of cervical region Segmental and somatic dysfunction of lumbar region Segmental and somatic dysfunction of pelvic region Segmental and somatic dysfunction of thoracic region DDD (degenerative disc disease) Scoliosis of lumbar spine Health care maintenance Depression with anxiety Migraine Osteoarthritis Neck pain Segmental and somatic dysfunction of cervical region Segmental and somatic dysfunction of thoracic region DDD (degenerative disc disease) Scoliosis of lumbar spine Chief Complaint follow up BOTOX INJECTION wrist pain/defomity, fall Reason for Visit Neck pain Migraine headache without aura Migraine headache without aura Chief Complaint Admit Date SCREENING August 21, 2024 7 :09am back pain September 03, 2024 10:48am [facility] FU September 13, 2024 4:04pm 4 M FU September 27, 2024 7:5 5am BOTOX INJECTION October 03, 2024 12: 57pm GAIT IMBALANCE October 09, 2024 6:5 7am INT LABS October 11, 2024 8:1 9am Thyroid October 12, 2024 11: 19am Reason for Visit Admit Date Chest pain of uncertain etiology uar y 2024 4:04pm Depression with anxiety September 13 4:04pm Abnormal gait September 27, 2024 7:5 5am Neck pain September 27, 2024 7:5 5am Migraine headache without aura September 7:55am Migraine headache without aura September 12:57pm Hyperthyroidism October 12, 2024 11: 19am Chief Complaint Admit Date SCREENING August 21, 2024 7 :09am back pain September 03, 2024 10:48am [facility] FU September 13, 2024 4:04pm 4 M FU September 27, 2024 7:5 5am BOTOX INJECTION October 03, 2024 12: 57pm GAIT IMBALANCE October 09, 2024 6:5 7am INT LABS October 11, 2024 8:1 9am Thyroid October 12, 2024 11: 19am CONCERN FOR SINUS INFECTION November 09, 2024 9:40am INT LAB ORDERS November 12, 2024 11: 22am E-ORDER November 27, 2024 9:35a m Reason for Visit Admit Date Chest pain of uncertain etiology [id number] 4:04pm Depression with anxiety September 13, 4:04pm Abnormal gait September 27, 2024 7:5 5am Neck pain September 27, 2024 7:5 5am Migraine headache without aura September 7:55am Migraine headache without aura September 12:57pm Hyperthyroidism October 12, 2024 11: 19am Acute sinusitis November 09, 2024 9:4 0am Chief Complaint Admit Date back pain September 03, 2024 10:48am [facility] FU September 13, 2024 4:04pm 4 M FU September 27, 2024 7:5 5am BOTOX INJECTION October 03, 2024 12: 57pm GAIT IMBALANCE October 09, 2024 6:5 7am INT LABS October 11, 2024 8:1 9am Thyroid October 12, 2024 11: 19am CONCERN FOR SINUS INFECTION November 09, 2024 9:40am INT LAB ORDERS November 12, 2024 11: 22am E-ORDER November 27, 2024 9:35a m NEED ORDER/NO E ORDER December 17, 2024 11: 21am Chief Complaint Admit Date back pain September 03, 2024 10:48am [facility] FU September 13, 2024 4:04pm 4 M FU September 27, 2024 7:5 5am BOTOX INJECTION October 03, 2024 12: 57pm GAIT IMBALANCE October 09, 2024 6:5 7am INT LABS October 11, 2024 8:1 9am Thyroid October 12, 2024 11: 19am CONCERN FOR SINUS INFECTION November 09, 2024 9:40am INT LAB ORDERS November 12, 2024 11: 22am E-ORDER November 27, 2024 9:35a m NEED ORDER/NO E ORDER December 17, 2024 11: 21am 3 M FU December 25, 2024 7:58 am Chief Complaint Admit Date 4 M FU September 27, 2024 7:5 5am BOTOX INJECTION October 03, 2024 12: 57pm GAIT IMBALANCE October 09, 2024 6:5 7am INT LABS October 11, 2024 8:1 9am Thyroid October 12, 2024 11: 19am CONCERN FOR SINUS INFECTION November 09, 2024 9:40am INT LAB ORDERS November 12, 2024 11: 22am E-ORDER November 27, 2024 9:35a m NEED ORDER/NO E ORDER December 17, 2024 11: 21am 3 M FU December 25, 2024 7:58 am INT LABS January 15, 2025 8:43a m 3 M FU January 22, 2025 1:30p m Reason for Visit Admit Date Neck pain September 27, 2024 7:5 5am Migraine headache without aura September 7:55am Abnormal gait September 27, 2024 7:5 5am Migraine headache without aura September 12:57pm Hyperthyroidism October 12, 2024 11: 19am Acute sinusitis November 09, 2024 9:4 0am Neck pain December 25, 2024 7:58 am Migraine headache without aura December 7:58am Abnormal gait December 25, 2024 7:58 am Hyperthyroidism January 22, 2025 1:30p m Reason for Visit Admit Date Neck pain September 27, 2024 7:5 5am Migraine headache without aura September 7:55am Abnormal gait September 27, 2024 7:5 5am Migraine headache without aura September 12:57pm Hyperthyroidism October 12, 2024 11: 19am Acute sinusitis November 09, 2024 9:4 0am Neck pain December 25, 2024 7:58 am Migraine headache without aura December 7:58am Abnormal gait December 25, 2024 7:58 am Hyperthyroidism January 22, 2025 1:30p m Osteopenia determined by x-ray January 22, 2025 1:30pm Chief Complaint Admit Date CONCERN FOR SINUS INFECTION November 09, 2024 9:40am INT LAB ORDERS November 12, 2024 11: 22am E-ORDER November 27, 2024 9:35a m NEED ORDER/NO E ORDER December 17, 2024 11: 21am 3 M FU December 25, 2024 7:58 am INT LABS January 15, 2025 8:43a m 3 M FU January 22, 2025 1:30p m INT LAB ORDRS February 13, 2025 1:17 pm Reason for Visit Admit Date Acute sinusitis November 09, 2024 9:4 0am Neck pain December 25, 2024 7:58 am Migraine headache without aura December 7:58am Abnormal gait December 25, 2024 7:58 am Hyperthyroidism January 22, 2025 1:30p m Osteopenia determined by x-ray January 22, 2025 1:30pm Additional Source Comments INFORMATION SOURCE (unrecogn ized section and content) DATE CREATED AUTHOR 07/03/2019 [facility] DATE CREATED AUTHOR AUTHOR'S ORGANIZ ATION 02/23/2025 [facility] Goals (unrecognized section and content) Goals may be documented in a n alternate sectionGoals may be documented in an alternate sectionGoals may be documented in an alternate sectionGoals may be documented in an alternate section Care Teams (unrecognized sec tion and content) Team Status: Active Member Role Status Dates Dr. Justice Knight MD Family Provider Active Dr. Justice Knight MD Primary Care Provider Active Team Status: Inactive Member Role Status Dates Dr. Justice Knight MD Primary Care Provider, Refer ring Provider Active Martin Pereyra PA, PA Attending Provider Active Team Status: Inactive Member Role Status Dates Dr. Justice Knight MD Primary Care Provider, Refer ring Provider Active Dr. Genaro Dorman MD Attending Provider Active Team Status: Active Member Role Status Dates Dr. Justice Knight MD Primary Care Provider Active Dr. Genaro Dorman MD Attending Provider Active Team Status: Inactive Member Role Status Dates Dr. Justice Knight MD Primary Care Provider Active Dr. Genaro Dorman MD Attending Provider Active Team Status: Active Member Role Status Dates Dr. Justice Knight MD Primary Care Provider Active Dr. Genaro Dorman MD Attending Provider, Referring Pro vider Active Team Status: Inactive Member Role Status Dates Dr. Justice Knight MD Primary Care Provider Active Dr. Wes Zaragoza MD Attending Provider Active Team Status: Inactive Member Role Status Dates Dr. Justice Knight MD Primary Care Provider, Refer ring Provider Active Dr. Samantha Morejon DC Attending Provider Active Team Status: Active Member Role Status Dates Dr. Justice Knight MD Primary Care Provider Active Dr. Wes Zaraogza MD Attending Provider Active Team Status: Inactive Member Role Status Dates Dr. Justice Knight MD Primary Care Provider Active Dr. Wes Zaragoza MD Attending Provider, Referring Provider Active Team Status: Inactive Member Role Status Dates Dr. Justice Knight MD Primary Care P rovider, Attending Provider, Referring Provider Active Team Status: Inactive Member Role Status Dates Dr. Justice Knight MD Primary Care Provider Active Dr. Samantha Morejon DC Attending Provider, Referring Pro vider Active Team Status: Inactive Member Role Status Dates Dr. Justice Knight MD Primary Care Provider, Refer ring Provider Active Dr. Wes Zaragoza MD Attending Provider Active Team Status: Inactive Member Role Status Dates Dr. Justice Knight MD Primary Care Provider Active Dr. Angelo Bennett DO Emergency Provider Active Team Status: Active Member Role Status Dates Dr. Justice Knight MD Primary Care Provider Active Team Status: Inactive Member Role Status Dates Dr. Justice Knight MD Primary Care Provider Active Start: June 21, 2024 End: June 21, 2024 Dr. Justice Knight MD Attending Provider Active Start: June 21, 2024 End: June 21, 2024 Dr. Justice Knight MD Referring Provider Active Start: June 21, 2024 End: June 21, 2024 Team Status: Inactive Member Role Status Dates Dr. Justice Knight MD Primary Care Provider Active Start: August 21, 2024 End: August 21, 2024 Dr. Justice Knight MD Attending Provider Active Start: August 21, 2024 End: August 21, 2024 Dr. Justice Knight MD Referring Provider Active Start: August 21, 2024 End: August 21, 2024 Team Status: Inactive Member Role Status Dates Dr. Justice Knight MD Primary Care Provider Active Start: September 03, 2024 End: September 03, 2024 Dr. Cyrus Escalante MD Attending Provider Active Start: September 03, 2024 End: September 03, 2024 Dr. Cyrus Escalante MD Emergency Provider Active Start: September 03, 2024 End: September 03, 2024 Team Status: Inactive Member Role Status Dates Dr. Justice Knight MD Primary Care Provider Active Start: September 13, 2024 End: September 13, 2024 Dr. Justice Knight MD Referring Provider Active Start: September 13, 2024 End: September 13, 2024 HENNY Bravo Attending Provider Active St art: September 13, 2024 End: September 13, 2024 Team Status: Inactive Member Role Status Dates Dr. Justice Knight MD Primary Care Provider Active Start: September 27, 2024 End: September 27, 2024 Dr. Justice Knight MD Referring Provider Active Start: September 27, 2024 End: September 27, 2024 Dr. Wes Zaragoza MD Attending Provider Active Start: September 27, 2024 End: September 27, 2024 Team Status: Inactive Member Role Status Dates Dr. Justice Knight MD Primary Care Provider Active Start: October 03, 2024 End: October 03, 2024 Dr. Justice Knight MD Referring Provider Active Start: October 03, 2024 End: October 03, 2024 JARRETT Ellison Attending Provider Active S tart: October 03, 2024 End: October 03, 2024 Team Status: Inactive Member Role Status Dates Dr. Justice Knight MD Primary Care Provider Active Start: October 09, 2024 End: October 09, 2024 Dr. Wes Zaragoza MD Attending Provider Active Start: October 09, 2024 End: October 09, 2024 HENNY Bravo Referring Provider Active St art: October 09, 2024 End: October 09, 2024 Team Status: Active Member Role Status Dates Dr. Justice Knight MD Primary Care Provider Active Start: October 11, 2024 HENNY Bravo Attending Provider Active St art: October 11, 2024 HENNY Bravo Referring Provider Active St art: October 11, 2024 Team Status: Inactive Member Role Status Dates Dr. Justice Knight MD Primary Care Provider Active Start: October 12, 2024 End: October 12, 2024 Dr. Justice Knight MD Referring Provider Active Start: October 12, 2024 End: October 12, 2024 Dr. Enrico Luo MD Attending Provider Active Sta rt: October 12, 2024 End: October 12, 2024 Team Status: Inactive Member Role Status Dates Dr. Justice Knight MD Primary Care Provider Active Start: October 11, 2024 End: October 11, 2024 HENNY Bravo Attending Provider Active St art: October 11, 2024 End: October 11, 2024 HENNY Bravo Referring Provider Active St art: October 11, 2024 End: October 11, 2024 Team Status: Inactive Member Role Status Dates Dr. Justice Knight MD Primary Care Provider Active Start: October 19, 2024 End: October 19, 2024 Dr. Justice Knight MD Attending Provider Active Start: October 19, 2024 End: October 19, 2024 Dr. Justice Knight MD Referring Provider Active Start: October 19, 2024 End: October 19, 2024 Team Status: Inactive Member Role Status Dates Dr. Justice Knight MD Primary Care Provider Active Start: October 03, 2024 End: October 03, 2024 JARRETT Ellison Attending Provider Active S tart: October 03, 2024 End: October 03, 2024 JARRETT Ellison Referring Provider Active S tart: October 03, 2024 End: October 03, 2024 Team Status: Inactive Member Role Status Dates Dr. Justice Knight MD Primary Care Provider Active Start: November 09, 2024 End: November 09, 2024 Dr. Justice Knight MD Referring Provider Active Start: November 09, 2024 End: November 09, 2024 HENNY Ho Attending Provider Active Sta rt: November 09, 2024 End: November 09, 2024 Team Status: Inactive Member Role Status Dates Dr. Justice Knight MD Primary Care Provider Active Start: November 12, 2024 End: November 12, 2024 Dr. Enrico Luo MD Attending Provider Active Sta rt: November 12, 2024 End: November 12, 2024 Dr. Enrico Luo MD Referring Provider Active Sta rt: November 12, 2024 End: November 12, 2024 Team Status: Inactive Member Role Status Dates Dr. Justice Knight MD Primary Care Provider Active Start: November 27, 2024 End: November 27, 2024 Dr. Enrico Luo MD Attending Provider Active Sta rt: November 27, 2024 End: November 27, 2024 Dr. Enrico Luo MD Referring Provider Active Sta rt: November 27, 2024 End: November 27, 2024 Team Status: Inactive Member Role Status Dates Dr. Justice Knight MD Primary Care Provider Active Start: December 17, 2024 End: December 17, 2024 Dr. Enrico Luo MD Attending Provider Active Sta rt: December 17, 2024 End: December 17, 2024 Dr. Enrico Luo MD Referring Provider Active Sta rt: December 17, 2024 End: December 17, 2024 Team Status: Inactive Member Role Status Dates Dr. Justice Knight MD Primary Care Provider Active Start: December 25, 2024 End: December 25, 2024 Dr. Justice Knight MD Referring Provider Active Start: December 25, 2024 End: December 25, 2024 Dr. Wes Zaragoza MD Attending Provider Active Start: December 25, 2024 End: December 25, 2024 Team Status: Active Member Role/Relationship Status Dates Dr. Justice Knight MD Primary Care Provider Active Team Status: Inactive Member Role/Relationship Status Dates Dr. Justice Knight MD Primary Care Provider Active Start: September 27, 2024 End: September 27, 2024 Dr. Justice Knight MD Referring Provider Active Start: September 27, 2024 End: September 27, 2024 Dr. Wes Zaragoza MD Attending Provider Active Start: September 27, 2024 End: September 27, 2024 Team Status: Inactive Member Role/Relationship Status Dates Dr. Justice Knight MD Primary Care Provider Active Start: October 03, 2024 End: October 03, 2024 JARRETT Ellison Attending Provider Active S tart: October 03, 2024 End: October 03, 2024 JARRETT Ellison Referring Provider Active S tart: October 03, 2024 End: October 03, 2024 Team Status: Inactive Member Role/Relationship Status Dates Dr. Justice Knight MD Primary Care Provider Active Start: October 09, 2024 End: October 09, 2024 Dr. Wes Zaragoza MD Attending Provider Active Start: October 09, 2024 End: October 09, 2024 Markus INMAN PA Referring Provider Active St art: October 09, 2024 End: October 09, 2024 Team Status: Inactive Member Role/Relationship Status Dates Dr. Justice Knight MD Primary Care Provider Active Start: October 11, 2024 End: October 11, 2024 Markus INMAN PA Attending Provider Active St art: October 11, 2024 End: October 11, 2024 HENNY Bravo Referring Provider Active St art: October 11, 2024 End: October 11, 2024 Team Status: Inactive Member Role/Relationship Status Dates Dr. Justice Knight MD Primary Care Provider Active Start: October 12, 2024 End: October 12, 2024 Dr. Justice Knight MD Referring Provider Active Start: October 12, 2024 End: October 12, 2024 Dr. Enrico Luo MD Attending Provider Active Sta rt: October 12, 2024 End: October 12, 2024 Team Status: Inactive Member Role/Relationship Status Dates Dr. Justice Knight MD Primary Care Provider Active Start: October 19, 2024 End: October 19, 2024 Dr. Justice Knight MD Attending Provider Active Start: October 19, 2024 End: October 19, 2024 Dr. Justice Knight MD Referring Provider Active Start: October 19, 2024 End: October 19, 2024 Team Status: Inactive Member Role/Relationship Status Dates Dr. Justice Knight MD Primary Care Provider Active Start: November 09, 2024 End: November 09, 2024 Dr. Justice Knight MD Referring Provider Active Start: November 09, 2024 End: November 09, 2024 Santiago INMAN PA Attending Provider Active Sta rt: November 09, 2024 End: November 09, 2024 Team Status: Inactive Member Role/Relationship Status Dates Dr. Justice Knight MD Primary Care Provider Active Start: November 12, 2024 End: November 12, 2024 Dr. Enrico Luo MD Attending Provider Active Sta rt: November 12, 2024 End: November 12, 2024 Dr. Enrico Luo MD Referring Provider Active Sta rt: November 12, 2024 End: November 12, 2024 Team Status: Inactive Member Role/Relationship Status Dates Dr. Justice Knight MD Primary Care Provider Active Start: November 27, 2024 End: November 27, 2024 Dr. Enrico Luo MD Attending Provider Active Sta rt: November 27, 2024 End: November 27, 2024 Dr. Enrico Luo MD Referring Provider Active Sta rt: November 27, 2024 End: November 27, 2024 Team Status: Inactive Member Role/Relationship Status Dates Dr. Justice Knight MD Primary Care Provider Active Start: December 17, 2024 End: December 17, 2024 Dr. Enrico Luo MD Attending Provider Active Sta rt: December 17, 2024 End: December 17, 2024 Dr. Enrico Luo MD Referring Provider Active Sta rt: December 17, 2024 End: December 17, 2024 Team Status: Inactive Member Role/Relationship Status Dates Dr. Justice Knight MD Primary Care Provider Active Start: December 25, 2024 End: December 25, 2024 Dr. Justice Knight MD Referring Provider Active Start: December 25, 2024 End: December 25, 2024 Dr. Wes Zaragoza MD Attending Provider Active Start: December 25, 2024 End: December 25, 2024 Team Status: Active Member Role/Relationship Status Dates Dr. Justice Knight MD Primary Care Provider Active Start: January 15, 2025 Dr. Enrico Luo MD Attending Provider Active Sta rt: January 15, 2025 Dr. Enrico Luo MD Referring Provider Active Sta rt: January 15, 2025 Team Status: Inactive Member Role/Relationship Status Dates Dr. Justice Knight MD Primary Care Provider Active Start: January 22, 2025 End: January 22, 2025 Dr. Justice Knight MD Referring Provider Active Start: January 22, 2025 End: January 22, 2025 Dr. Enrico Luo MD Attending Provider Active Sta rt: January 22, 2025 End: January 22, 2025 Team Status: Inactive Member Role/Relationship Status Dates Dr. Justice Knight MD Primary Care Provider Active Start: January 15, 2025 End: January 15, 2025 Dr. Enrico Luo MD Attending Provider Active Sta rt: January 15, 2025 End: January 15, 2025 Dr. Enrico Luo MD Referring Provider Active Sta rt: January 15, 2025 End: January 15, 2025 Team Status: Inactive Member Role/Relationship Status Dates Dr. Justice Knight MD Primary Care Provider Active Start: November 09, 2024 End: November 09, 2024 Dr. Justice Knight MD Referring Provider Active Start: November 09, 2024 End: November 09, 2024 Santiago INMAN PA Attending Provider Active Sta rt: November 09, 2024 End: November 09, 2024 Team Status: Inactive Member Role/Relationship Status Dates Dr. Justice Knight MD Primary Care Provider Active Start: November 12, 2024 End: November 12, 2024 Dr. Enrico Luo MD Attending Provider Active Sta rt: November 12, 2024 End: November 12, 2024 Dr. Enrico Luo MD Referring Provider Active Sta rt: November 12, 2024 End: November 12, 2024 Team Status: Inactive Member Role/Relationship Status Dates Dr. Justice Knight MD Primary Care Provider Active Start: November 27, 2024 End: November 27, 2024 Dr. Enrico Luo MD Attending Provider Active Sta rt: November 27, 2024 End: November 27, 2024 Dr. Enrico Luo MD Referring Provider Active Sta rt: November 27, 2024 End: November 27, 2024 Team Status: Inactive Member Role/Relationship Status Dates Dr. Justice Knight MD Primary Care Provider Active Start: December 17, 2024 End: December 17, 2024 Dr. Enrico Luo MD Attending Provider Active Sta rt: December 17, 2024 End: December 17, 2024 Dr. Enrico Luo MD Referring Provider Active Sta rt: December 17, 2024 End: December 17, 2024 Team Status: Inactive Member Role/Relationship Status Dates Dr. Justice Knight MD Primary Care Provider Active Start: December 25, 2024 End: December 25, 2024 Dr. Justice Knight MD Referring Provider Active Start: December 25, 2024 End: December 25, 2024 Dr. Wes Zaragoza MD Attending Provider Active Start: December 25, 2024 End: December 25, 2024 Team Status: Inactive Member Role/Relationship Status Dates Dr. Justice Knight MD Primary Care Provider Active Start: January 15, 2025 End: January 15, 2025 Dr. Enrico Luo MD Attending Provider Active Sta rt: January 15, 2025 End: January 15, 2025 Dr. Enrico Luo MD Referring Provider Active Sta rt: January 15, 2025 End: January 15, 2025 Team Status: Inactive Member Role/Relationship Status Dates Dr. Justice Knight MD Primary Care Provider Active Start: January 22, 2025 End: January 22, 2025 Dr. Justice Knight MD Referring Provider Active Start: January 22, 2025 End: January 22, 2025 Dr. Enrico Luo MD Attending Provider Active Sta rt: January 22, 2025 End: January 22, 2025 Team Status: Inactive Member Role/Relationship Status Dates Dr. Justice Knight MD Primary Care Provider Active Start: February 13, 2025 End: February 13, 2025 Dr. Enrico Luo MD Attending Provider Active Sta rt: February 13, 2025 End: February 13, 2025 Dr. Enrico Luo MD Referring Provider Active Sta rt: February 13, 2025 End: February 13, 2025 FOR RECORDS PERTAINING TO PATIENTS WHO ARE OR HAVE BEEN ENROLLED IN A CHEMICAL DEPENDENCY/SUBSTANCEABUSE PROGRAM, SOME INFORMATION MAY BE OMITTED. This clinical summary was aggregated from multiple sources. Caution should be exercised in using it in the provision of clinical care. This summary normalizes information from multiple sources, and as a consequence, information in this document may materially change the coding, format and clinical context of patient data. In addition, data may be omitted in some cases. CLINICAL DECISIONS SHOULD BE BASED ON THE PRIMARY CLINICAL RECORDS. [employer] [facility] provides no warranty or guarantee of the accuracy or completeness of information in this document.
[2025-04-08 09:52] LABS: Free T3 2.6 pg/mL (2.18-3.98)
== END | disposition home or self-care (01) ==
LOC: LAB 08:41
PROVIDERS: PCP Internal Medicine; Referring Provider Internal Medicine Endocrinology, Diabetes & Metabolism; Visit Provider Internal Medicine Endocrinology, Diabetes & Metabolism
DX: E05.90 Thyrotoxicosis, unspecified without thyrotoxic crisis or storm (principal)
CPT/HCPCS: 36415; 84439; 84443; 84481